=== PATIENT | female | born 1965 | race Caucasian/White ===

== ENCOUNTER 2020-07-17 10:25 | Outpatient (REF) | payer MEDICARE, MEDICAID, SELFPAY ==
[2020-07-17 13:25] LABS: Alanine Aminotransferase 13 U/L (0-31); Albumin Level 3.9 g/dL (3.5-5.0); Alkaline Phosphatase 121 U/L (39-117); Anion Gap 12 (12-20); Aspartate Amino Transferase 14 U/L (5-31); Bilirubin Direct 0.2 mg/dL (0.0-0.5); Bilirubin Total 0.2 mg/dL (0.0-1.0); Blood Urea Nitrogen 9 mg/dL (9-16); Calcium 8.8 mg/dL (8.4-10.2); Carbon Dioxide 31 mmol/L (22-29); Chloride 96 mmol/L (96-108); Cholesterol 125 mg/dL; Estimated Glomerular Filt Rate > 60; Glucose Random 96 mg/dL (60-115); HDL Cholesterol 36 mg/dL; LDL Cholesterol Calculated 70 mg/dl; Potassium 4.8 mmol/l (3.3-5.1); Sodium 134 mmol/L (135-145); Total Protein 7.3 g/dL (6.5-8.0); Triglycerides 96 mg/dL
[2020-07-17 13:38] LABS: Hematocrit 42.5 % (37-47); Hemoglobin 13.9 g/dl (12.0-16.0); Mean Corpuscular HGB Conc 32.7 g/dl (31.0-35.0); Mean Corpuscular Hemoglobin 31.4 pg (27.0-33.0); Mean Corpuscular Volume 96.2 fL (80-98); Mean Platelet Volume 10.3 fL (9.4-12.3); Platelet Count 235 X10*3/uL (160-400); Red Blood Count 4.42 X10*6/uL (4.20-5.50); Red Cell Distribution Width 12.2 % (11.0-16.0); White Blood Count 6.7 X10*3/uL (4.8-10.8)
== END 2020-07-17 10:26 | disposition home or self-care (01) ==
LOC: HO.LAB 10:25
PROVIDERS: PCP Internal Medicine; Visit Provider Internal Medicine
DX: I10 Essential (primary) hypertension (principal)
CPT/HCPCS: 36415; 80048; 80061; 80076; 85027

== ENCOUNTER 2020-08-20 14:02 | Emergency (ER) | payer MEDICARE, MEDICAID, SELFPAY ==
[2020-08-20 15:35] VITALS: BP 143/90; PULSE 94; RESP 16; TEMP 36.7; O2SAT 96; BMI 31.1
--- NOTE | 2020-08-20 16:21 | XR_ITS ---
EXAMINATION: XR ELBOW, RIGHT CLINICAL INFORMATION: Trauma. Fall. Elbow pain. COMPARISON: None TECHNIQUE: Two views of the right elbow. FINDINGS: There is osteopenia. There is no displaced fracture. No dislocation. There is no joint effusion. There is a 2 mm osseous density adjacent to the lateral humeral condyle that is chronic in appearance. XR/XR elbow RT 2V IMPRESSION: No acute abnormality of the elbow. If pain persists consider follow-up studies.
--- NOTE | 2020-08-20 16:22 | ED.EXTPRO ---
HPI - Extremity Problem General Chief complaint: Extremity Injury, Upper Stated complaint: elbow pain - fall Time Seen by Provider: 08/20/20 16:14 Source: patient Mode of arrival: ambulatory Limitations: no limitations History of Present Illness HPI Narrative: Patient comes to the emergency room complaining of right-sided elbow pain. Patient states that she slipped on eyes, landed on her right elbow. Patient denies pain anywhere else, did not hit her head, not on blood thinners. Patient denies numbness and tingling in the extremities, just localized pain in the elbow Related Data Home Medications Medication Instructions Recorded Confirmed aspirin 81 mg tablet,delayed 81 mg PO DAILY 07/23/20 08/02/20 release gabapentin 100 mg capsule mg PO 07/23/20 08/02/20 methadone 10 mg tablet 5 mg PO DAILY 07/23/20 08/02/20 Previous Rx's Medication Instructions Recorded atorvastatin 20 mg tablet 20 mg PO BEDTIME 90 Days #90 tab 06/04/20 citalopram 20 mg tablet 20 mg PO DAILY 90 Days #90 tab 06/04/20 lisinopril 10 mg tablet 10 mg PO DAILY 90 Days #90 tab 06/04/20 ropinirole 3 mg tablet 3 mg PO BEDTIME #90 tab 07/04/20 bisacodyl 5 mg tablet,delayed 10 mg PO ONCE 1 Days #2 tab 08/02/20 release polyethylene glycol 3350 17 17 g PO ONCE #238 g 08/02/20 gram/dose oral powder alprazolam 0.5 mg tablet 0.5 mg PO BID #60 tab 08/08/20 ibuprofen 600 mg PO TID PRN #14 tab 08/20/20 Allergies Allergy/AdvReac Type Severity Reaction Status Date / Time No Known Allergies Allergy Mild NOT Verified 08/20/20 15:37 APPLICABLE Review of Systems Review of Systems: Constitutional : No Weight loss, No Fever, No Chills, No Night Sweats, No Fatigue, No Malaise ENT/Mouth : No Hearing loss, No Ear Pain, No Nasal Congestion, No Sinus Pain, No Hoarseness, No sore throat, No Rhinorrhea, No Swallowing Difficulty Eyes: No Eye Pain, No Swelling, No Redness, No Foreign Body, No Discharge, No Vision Changes Cardiovascular : No Chest Pain, No SOB, No Dyspnea on Exertion, No Orthopnea, No Edema, No Palpitations Respiratory : No Cough, No Sputum, No Wheezing, No Smoke Exposure, No Dyspnea Gastrointestinal : No Nausea, No Vomiting, No Diarrhea, No Constipation, No abdominal Pain, No Hematochezia, No Melena Genitourinary : no irregular bleeding, No Dysuria, No Urinary Frequency, No Hematuria, No Urinary Incontinence, No Urgency, No Flank Pain, No Urinary Flow Changes, No Hesitancy Musculoskeletal : Complaining of right elbow pain, No Myalgias, No Joint Swelling Skin : No Skin Lesions, No rash Neuro : No Weakness, No Numbness, No Paresthesias, No Loss of Consciousness, No Dizziness, No Headache Psych : No Anxiety/Panic, No Depression, No SI/HI/AH/VH, No Social Issues, Heme/Lymph: No Bruising, No Bleeding,No Lymphadenopathy Endocrine : No Polyuria, No Polydipsia, No Temperature Intolerance [facility] Past Medical History Medical History Benign essential HTN CVA (cerebral vascular accident) Endogenous depression Positive colorectal cancer screening using Cologuard test Family History Family History (Updated 08/02/20 @ 13:16 by Jana Prescott MA) Father Alive and well Mother Alive and well Social History Social History (Updated 08/02/20 @ 13:16 by Jana Prescott MA) Alcohol intake: never Smoking Status: Current every day smoker Tobacco Type: Cigarette Cigarettes Per Day: 10 Advance Directives: No Advance Directives Information Provided: No Physical Exam Vital Signs: Vital Signs: Last Vital Signs Temp 98.0 F 08/20/20 15:35 Pulse 94 08/20/20 15:35 Resp 16 08/20/20 15:35 BP 143/90 H 08/20/20 15:35 Pulse Ox 96 08/20/20 15:35 Body Mass Index 31.1 Appearance: Alert. Oriented X3. No acute distress. Eyes: Pupils equal, round and reactive to light. ENT: Pharynx normal. Neck: Normal inspection. Neck supple. No lymph nodes noted. No crepitus CVS: Normal heart rate and rhythm. Pulses normal. Normal S1 and S2 Respiratory: No respiratory distress. Breath sounds normal. No Wheezing. No rales Abdomen: Soft and nontender. No rigidity. No distention. good BS x4 Skin: Skin warm and dry. Normal skin color. Normal skin turgor. Extremities: No obvious deformity, no effusion in elbow, no swelling,, patient able to abduct and move shoulder and wrist, patient is able to flex and extend the elbow but it hurts. Neuro: Oriented X 3. No motor deficit. No sensory deficit. Moving all extermities. No slurred speech. Course Course Course Narrative: I discussed the imaging with the patient, no acute fracture. MDM - Extremity (Nontraumatic) Imaging Data Elbow x-ray: Radiologist's impression: There is osteopenia. There is no displaced fracture. No dislocation. There is no joint effusion. There is a 2 mm osseous density adjacent to the lateral humeral condyle that is chronic in appearance. XR/XR elbow RT 2V IMPRESSION: No acute abnormality of the elbow. If pain persists consider follow-up studies. Discharge Plan Discharge Clinical Impression: Contusion of elbow, right Qualifiers: Encounter type: initial encounter Qualified Code(s): S50.01XA - Contusion of right elbow, initial encounter Patient Disposition: Home, Self-Care Instructions: Arthralgia (ED) Additional Instructions: Please follow-up with your primary care physician tomorrow. If you have any worsening or new symptoms, please return to the emergency room or call 911 Prescriptions: New ibuprofen 600 mg tablet 600 mg PO TID PRN (Reason: pain) Qty: 14 RF: 0 No Action citalopram 20 mg tablet 20 mg PO DAILY 90 Days Qty: 90 RF: 1 atorvastatin 20 mg tablet 20 mg PO BEDTIME 90 Days Qty: 90 RF: 1 lisinopril 10 mg tablet 10 mg PO DAILY 90 Days Qty: 90 RF: 1 ropinirole 3 mg tablet 3 mg PO BEDTIME Qty: 90 RF: 0 alprazolam 0.5 mg tablet 0.5 mg PO BID Qty: 60 RF: 0 gabapentin 100 mg capsule PO RF: 0 methadone 10 mg tablet 5 mg PO DAILY RF: 0 aspirin 81 mg tablet,delayed release (DR/EC) 81 mg PO DAILY RF: 0 bisacodyl [Dulcolax (bisacodyl)] 5 mg tablet,delayed release (DR/EC) 10 mg PO ONCE 1 Days Qty: 2 RF: 0 polyethylene glycol 3350 [Miralax] 17 gram/dose powder 17 g PO ONCE Qty: 238 RF: 0
[2020-08-20] MEDS: oxyCODONE HCl Immed Release 5 MG TABLET PO (16:38)
[2020-08-20 19:14] VITALS: BP 146/96; PULSE 84; RESP 20; TEMP 36.6; O2SAT 98
== END 2020-08-20 19:42 | disposition home or self-care (01) ==
PROVIDERS: Emergency Provider Emergency Medicine; PCP Internal Medicine
DX: S50.01XA Contusion of right elbow, initial encounter (principal); M25.521 Pain in right elbow; M85.821 Other specified disorders of bone density and structure, right upper arm; W01.0XXA Fall on same level from slipping, tripping and stumbling without subsequent striking against object, initial encounter; Y93.9 Activity, unspecified; Y92.9 Unspecified place or not applicable; Y99.9 Unspecified external cause status
CPT/HCPCS: 73070; 99283

== ENCOUNTER 2020-08-26 08:40 | Inpatient (IN) | payer MEDICARE, MEDICAID, SELFPAY ==
[2020-08-26] VITALS (12 sets, daily range): BP systolic 116–145; BP diastolic 61–88; PULSE 53–104; RESP 12–19; TEMP 36.9–37.1; O2SAT 94–99; BMI 30.2
--- NOTE | 2020-08-26 09:53 | ECG_ITS ---
Test Reason : SEIZURE Blood Pressure : / mmHG Vent. Rate : 078 BPM Atrial Rate : 078 BPM P-R Int : 142 ms QRS Dur : 078 ms QT Int : 416 ms P-R-T Axes : 053 -12 058 degrees QTc Int : 474 ms Normal sinus rhythm Low voltage QRS Nonspecific T wave abnormality Abnormal ECG When compared with ECG of 20-APR-2019 09:13, Nonspecific T wave abnormality, worse in Lateral leads Referred By: Marely Terrell Electronically Signed By:BERTIN SOOD
--- NOTE | 2020-08-26 09:53 | CT_ITS ---
EXAMINATION: CT HEAD WITHOUT CONTRAST CLINICAL INFORMATION: Possible seizure, altered mental status. History of stroke. COMPARISON: Noncontrast CT head 04/12/2019, MR brain 04/13/2019, CTA head and neck 04/14/2019 TECHNIQUE: Contiguous axial imaging was performed from the skull base to vertex without intravenous administration of contrast. This CT examination was performed using dose optimization techniques as appropriate, variously including the following: *Automated exposure control *Adjustment of mA and/or kV according to patient size (this includes techniques or standardized protocols for targeted exams where dose is matched to indication/reason for exam; i.e. extremities or head) *Use of iterative reconstruction technique DLP: 648 mGy-cm FINDINGS: There is no intracranial hemorrhage, hematoma, or extra-axial fluid collection. The ventricles are normal in size. There is no hydrocephalus, edema, or mass effect. There are old infarcts again seen left posterior frontal lobe, posterior left occipital lobe, and bilateral basal ganglia, greater on right. Basal ganglia calcifications and vascular calcifications again seen. There is no visible acute territorial infarct or mass lesion. The calvarium appears intact. There is no pneumocephalus or orbital emphysema. The visualized sinuses and middle ears and mastoid air cells show no significant mucosal thickening. There are no air-fluid levels. CT/CT head/brain wo con IMPRESSION: Chronic appearing infarcts. No acute intracranial abnormality.
--- NOTE | 2020-08-26 09:54 | XR_ITS ---
EXAMINATION: XR CHEST CLINICAL INFORMATION: Possible seizure. COMPARISON: Portable chest 04/12/2019, frontal chest 11/27/2014 TECHNIQUE: Portable upright AP view of the chest was obtained. FINDINGS: The lungs are clear. The vascularity is normal. There is no airspace consolidation or effusion. The costophrenic sulci are well-defined. The heart is within limits of normal size. The hilar and mediastinal contours are unremarkable. There are old healed fractures right ribs. XR/XR chest 1V IMPRESSION: Unremarkable examination.
--- NOTE | 2020-08-26 09:58 | ED_ITS ---
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 Patient postictal on scene per EMS. Per mother patient & her were drinking coffee this morning, she left to refill her cup it came back patient was slumped on floor, foaming at mouth, with witnessed tonic clonic activity. Mother also reports patient was incontinent. Mother reports 1 prior seizure in the past with her CVA. Denies anticoagulation. Of note patient was seen in the ED on 08/20 for fall, at this time patient does not remember this fall/events of fall. Patient denies symptoms at present, does not remember event. Denies headache, lightheadedness/dizziness, CP/SOB, abdominal pain, nausea/vomiting, ETOH/drug use Related Data Home Medications Medication Instructions Recorded Confirmed gabapentin 100 mg capsule 100 mg PO TID 07/23/20 08/26/20 aspirin [Aspir-81] 81 mg PO DAILY 08/26/20 08/26/20 atorvastatin 20 mg PO DAILY 08/26/20 08/26/20 methadone 10 mg PO DAILY 08/26/20 08/26/20 Previous Rx's Medication Instructions Recorded citalopram 20 mg tablet 20 mg PO DAILY 90 Days #90 tab 06/04/20 lisinopril 10 mg tablet 10 mg PO DAILY 90 Days #90 tab 06/04/20 ropinirole 3 mg tablet 3 mg PO BEDTIME #90 tab 07/04/20 alprazolam 0.5 mg tablet 0.5 mg PO BID #60 tab 08/08/20 Allergies Allergy/AdvReac Type Severity Reaction Status Date / Time No Known Allergies Allergy Mild NOT Verified 08/20/20 15:37 APPLICABLE Review of Systems Review of Systems: Constitutional: No Weight loss, No Fever, No Chills, No Fatigue, No Malaise ENT/Mouth: No sore throat, No Rhinorrhea Eyes: No Eye Pain, No Vision Changes Cardiovascular: No Chest Pain, No SOB, No Palpitations Respiratory: No Cough, No Sputum, No Wheezing, No Dyspnea Gastrointestinal: No Nausea, No Vomiting, No Diarrhea, No Constipation, No Abdominal pain Genitourinary: No irregular bleeding, No Dysuria, No Hematuria,+ Urinary Incontinence Musculoskeletal: No joint pain, No Myalgias, No Joint Swelling Skin: No Skin Lesions, No rash Neuro: No Weakness, No Numbness, No Paresthesias, +Loss of Consciousness, No Dizziness, No Headache, + witnessed seizure Yes all other systems are reviewed and are negative [facility] Past Medical History Attestation statement: The following information was validated with the patient. Medical History Benign essential HTN CVA (cerebral vascular accident) Endogenous depression Positive colorectal cancer screening using Cologuard test Family History Family History (Updated 08/02/20 @ 13:16 by Jana Prescott MA) Father Alive and well Mother Alive and well Social History Social History (Updated 08/02/20 @ 13:16 by Jana Prescott MA) Alcohol intake: never Smoking Status: Current every day smoker Tobacco Type: Cigarette Cigarettes Per Day: 10 Use of substances other than those prescribed or required for medical reasons: No Advance Directives: No Advance Directives Information Provided: No Physical Exam Vital Signs: Vital Signs: Last Vital Signs Temp 98.7 F 08/26/20 08:54 Pulse 90 08/26/20 10:54 Resp 19 08/26/20 10:40 BP 141/88 H 08/26/20 10:54 Pulse Ox 96 08/26/20 10:40 Body Mass Index 30.2 Const: General: cooperative and healthy appearing Orientation/consciousness: oriented to person and oriented to place L imitations: no limitations HENMT: Head: Yes normal to inspection Ears: hearing grossly normal bilaterally General nose exam: Normal external nose present Face and sinus: Yes normal facial exam Eyes: General: appearance normal, both eyes and all related structures Pupils: Equal, round and reactive pupils present EOM: EOMs intact bilaterally Neck: Neck: Yes normal visual inspection and Yes no meningeal signs Resp: Effort & Inspection: normal respiratory effort Auscultation: clear to auscultation bilaterally, no rales, no rhonchi and no wheezes Cardio: Rate: regular rate Heart sounds: S1 normal heart sound present and S2 normal heart sound present GI: Inspection: Yes normal to inspection Palpation (GI): Soft to palpation, nontender, no guarding and not rigid Skin: Other: Large area of ecchymosis noted to right arm from fall last week Rashes: no rashes Neuro: Other: RUE with decreased ROM chronically from prior CVA. Otherwise strength intact throughout General: oriented to person, oriented to place, tone normal, moves all extremities, no meningeal signs, no focal motor deficits and CN's II-XI intact bilaterally Cranial nerves: Yes Equal, round and reactive pupils present Gait exam (Neuro): Normal gait present Coordination: [id number] test normal (with LUE) and Romberg test negative Extrem: General: Yes normal to inspection Course Course Course Narrative: * Labs unremarkable, lactic 1.9 * Head CT with chronic appearing infarcts. No acute intracranial abnormality * CXR unremarkable * 1150--spoke to Neurology, Dr. Carbone recommended initiating patient on Keppra 500 b.i.d. 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 On exam VSS, NAD, A&O x2, no focal neuro deficits. Concern for CVA or ICH vs first time seizure or ?2nd seizure with unwitnessed fall last week as patient does not remember events vs metabolic/infectious etiology Plan: EKG, labs, CXR, head CT, reassess Lab Data Result diagrams: 08/26/20 10:51 08/26/20 10:51 Labs: Lab Results 08/26/20 08/26/20 08/26/20 Range/Units 10:51 10:51 10:51 WBC 6.8 (4.8-10.8) X10*3/uL RBC 3.71 L (4.20-5.50) X10*6/uL Hgb 11.8 L (12.0-16.0) g/dl Hct 35.7 L (37-47) % MCV 96.2 (80-98) fL MCH 31.8 (27.0-33.0) pg MCHC 33.1 (31.0-35.0) g/dl RDW 13.2 (11.0-16.0) % Plt Count 210 (160-400) X10*3/uL MPV 9.6 (9.4-12.3) fL Immature Gran % (Auto) 0.4 (0.0-0.4) % Neut % (Auto) 80.5 H (45-73) % Lymph % (Auto) 12.4 L (20-40) % [place] % (Auto) 6.0 (2-11) % Eos % (Auto) 0.4 (0-4) % Baso % (Auto) 0.3 (0-2) % Lymph # (Auto) 0.8 L (1.2-4.9) X10*3/uL [place] # (Auto) 0.4 (0.1-1.2) X10*3/uL Eos # (Auto) 0.0 (0.0-0.4) X10*3/uL Baso # (Auto) 0.0 (0.0-0.2) X10*3/uL Abs Immat Gran (auto) 0.03 (0.00-0.03) X10*3/uL Absolute Neuts (auto) 5.5 (2.0-8.3) X10*3/uL Absolute Nucleated RBC 0.000 (0.0-0.012) X10*3/uL Nucleated RBC % (auto) 0.0 (0.0-0.2) /100WBC PT (10.8-13.0) SEC INR (0.9-1.1) APTT (24.1-38.0) SEC Sodium 137 (135-145) mmol/L Potassium 3.8 D (3.3-5.1) mmol/l Chloride 100 (96-108) mmol/L Carbon Dioxide 30 H (22-29) mmol/L Anion Gap 11 L (12-20) BUN 6 L (9-16) mg/dL Creatinine 0.76 (0.5-1.4) mg/dL Estim Creat Clear Calc 80.1 Estimated GFR > 60 Random Glucose 159 H D (60-115) mg/dL Lactic Acid (0.5-2.0) mmol/L Calcium 8.6 (8.4-10.2) mg/dL Magnesium 1.9 (1.6-2.6) mg/dL Total Bilirubin 0.3 (0.0-1.0) mg/dL Direct Bilirubin 0.2 (0.0-0.5) mg/dL AST 11 (5-31) U/L ALT 8 (0-31) U/L Alkaline Phosphatase 128 H (39-117) U/L Troponin I High Sens < 3.5 (<3.5-17.0) ng/L B-Natriuretic Peptide 102 H (<100) pg/mL Total Protein 6.4 L (6.5-8.0) g/dL Albumin 3.6 (3.5-5.0) g/dL Lipase (8-78) U/L 08/26/20 08/26/20 08/26/20 Range/Units 10:51 10:51 10:51 WBC (4.8-10.8) X10*3/uL RBC (4.20-5.50) X10*6/uL Hgb (12.0-16.0) g/dl Hct (37-47) % MCV (80-98) fL MCH (27.0-33.0) pg MCHC (31.0-35.0) g/dl RDW (11.0-16.0) % Plt Count (160-400) X10*3/uL MPV (9.4-12.3) fL Immature Gran % (Auto) (0.0-0.4) % Neut % (Auto) (45-73) % Lymph % (Auto) (20-40) % [place] % (Auto) (2-11) % Eos % (Auto) (0-4) % Baso % (Auto) (0-2) % Lymph # (Auto) (1.2-4.9) X10*3/uL [place] # (Auto) (0.1-1.2) X10*3/uL Eos # (Auto) (0.0-0.4) X10*3/uL Baso # (Auto) (0.0-0.2) X10*3/uL Abs Immat Gran (auto) (0.00-0.03) X10*3/uL Absolute Neuts (auto) (2.0-8.3) X10*3/uL Absolute Nucleated RBC (0.0-0.012) X10*3/uL Nucleated RBC % (auto) (0.0-0.2) /100WBC PT 11.8 (10.8-13.0) SEC INR 1.0 (0.9-1.1) APTT 29.1 (24.1-38.0) SEC Sodium (135-145) mmol/L Potassium (3.3-5.1) mmol/l Chloride (96-108) mmol/L Carbon Dioxide (22-29) mmol/L Anion Gap (12-20) BUN (9-16) mg/dL Creatinine (0.5-1.4) mg/dL Estim Creat Clear Calc Estimated GFR Random Glucose (60-115) mg/dL Lactic Acid 1.9 (0.5-2.0) mmol/L Calcium (8.4-10.2) mg/dL Magnesium (1.6-2.6) mg/dL Total Bilirubin (0.0-1.0) mg/dL Direct Bilirubin (0.0-0.5) mg/dL AST (5-31) U/L ALT (0-31) U/L Alkaline Phosphatase (39-117) U/L Troponin I High Sens (<3.5-17.0) ng/L B-Natriuretic Peptide (<100) pg/mL Total Protein (6.5-8.0) g/dL Albumin (3.5-5.0) g/dL Lipase 25 (8-78) U/L Discharge Plan Discharge Clinical Impression: Seizure Patient Disposition: Admitted As Inpatient Prescriptions: No Action citalopram 20 mg tablet 20 mg PO DAILY 90 Days Qty: 90 RF: 1 lisinopril 10 mg tablet 10 mg PO DAILY 90 Days Qty: 90 RF: 1 ropinirole 3 mg tablet 3 mg PO BEDTIME Qty: 90 RF: 0 alprazolam 0.5 mg tablet 0.5 mg PO BID Qty: 60 RF: 0 methadone 10 mg/mL Concentrate 10 mg PO DAILY RF: 0 atorvastatin 20 mg tablet 20 mg PO DAILY RF: 0 aspirin [Aspir-81] 81 mg Tablet,Delayed Release (Dr/Ec) 81 mg PO DAILY RF: 0 gabapentin 100 mg capsule 100 mg PO TID RF: 0
[2020-08-26 10:59] LABS: Basophils Percent Auto 0.3 % (0-2); Eosinophils Percent Auto 0.4 % (0-4); Hematocrit 35.7 % (37-47); Hemoglobin 11.8 g/dl (12.0-16.0); Imm Gran Abs Auto 0.03 X10*3/uL (0.00-0.03); Imm Gran Pct Auto 0.4 % (0.0-0.4); Lymphocytes Absolute Auto 0.8 X10*3/uL (1.2-4.9); Lymphocytes Percent Auto 12.4 % (20-40); MANUAL DIFF FLAG NO; Mean Corpuscular HGB Conc 33.1 g/dl (31.0-35.0); Mean Corpuscular Hemoglobin 31.8 pg (27.0-33.0); Mean Corpuscular Volume 96.2 fL (80-98); Mean Platelet Volume 9.6 fL (9.4-12.3); Monocytes Absolute Auto 0.4 X10*3/uL (0.1-1.2); Neutrophils Absolute Auto 5.5 X10*3/uL (2.0-8.3); Neutrophils Percent Auto 80.5 % (45-73); Platelet Count 210 X10*3/uL (160-400); Red Blood Count 3.71 X10*6/uL (4.20-5.50); Red Cell Distribution Width 13.2 % (11.0-16.0); White Blood Count 6.8 X10*3/uL (4.8-10.8)
[2020-08-26 11:17] LABS: Prothrombin Time 11.8 SEC (10.8-13.0)
[2020-08-26 11:20] LABS: Partial Thromboplastin Time 29.1 SEC (24.1-38.0)
[2020-08-26 11:23] LABS: Lactic Acid 1.9 mmol/L (0.5-2.0)
[2020-08-26 11:30] LABS: Alanine Aminotransferase 8 U/L (0-31); Albumin Level 3.6 g/dL (3.5-5.0); Alkaline Phosphatase 128 U/L (39-117); Anion Gap 11 (12-20); Aspartate Amino Transferase 11 U/L (5-31); Bilirubin Direct 0.2 mg/dL (0.0-0.5); Bilirubin Total 0.3 mg/dL (0.0-1.0); Blood Urea Nitrogen 6 mg/dL (9-16); Calcium 8.6 mg/dL (8.4-10.2); Carbon Dioxide 30 mmol/L (22-29); Chloride 100 mmol/L (96-108); Creatinine Clr Calc Pharmacy 80.1; Estimated Glomerular Filt Rate > 60; Glucose Random 159 mg/dL (60-115); Lipase 25 U/L (8-78); Magnesium 1.9 mg/dL (1.6-2.6); Potassium 3.8 mmol/l (3.3-5.1); Sodium 137 mmol/L (135-145); Total Protein 6.4 g/dL (6.5-8.0)
[2020-08-26 11:33] LABS: B Type Natriuretic Peptide 102 pg/mL (<100); Troponin-I High Sensitivity < 3.5 ng/L (<3.5-17.0)
[2020-08-26 12:03] LABS: Acetaminophen LAB < 1 mcg/mL (<30); Salicylate < 5.0 mg/dL (15-30)
[2020-08-26] MEDS: levETIRAcetam 500 MG TABLET PO (12:08)
--- NOTE | 2020-08-26 13:58 | PM.IMHP ---
History of Present Illness Date of Service: 08/26/20 Chief Complaint: Seizure 54 year old women [facility] Medical History Benign essential HTN CVA (cerebral vascular accident) Endogenous depression Positive colorectal cancer screening using Cologuard test Family History (Updated 08/02/20 @ 13:16 by Jana Prescott MA) Father Alive and well Mother Alive and well Social History (Updated 08/02/20 @ 13:16 by Jana Prescott MA) Alcohol intake: never Smoking Status: Current every day smoker Tobacco Type: Cigarette Cigarettes Per Day: 10 Use of substances other than those prescribed or required for medical reasons: No Advance Directives: No Advance Directives Information Provided: No Meds Allergies Allergy/AdvReac Type Severity Reaction Status Date / Time No Known Allergies Allergy Mild NOT Verified 08/20/20 15:37 APPLICABLE Home Medications Medication Instructions Recorded Confirmed Type gabapentin 100 mg capsule 100 mg PO TID 07/23/20 08/26/20 History aspirin [Aspir-81] 81 mg PO DAILY 08/26/20 08/26/20 History atorvastatin 20 mg PO DAILY 08/26/20 08/26/20 History methadone 10 mg PO DAILY 08/26/20 08/26/20 History Physical Exam Vital Signs and Narrative: Vital Signs: Last Vital Signs Temp 98.7 F 08/26/20 08:54 Pulse 90 08/26/20 10:54 Resp 19 08/26/20 10:40 BP 141/88 H 08/26/20 10:54 Pulse Ox 96 08/26/20 10:40 Body Mass Index 30.2 Results Labs CBC and Chem 7: 08/26/20 10:51 08/26/20 10:51 Labs: Laboratory Results - last 24 hr 08/26/20 08/26/20 08/26/20 10:51 10:51 10:51 MCV 96.2 MCH 31.8 MCHC 33.1 RDW 13.2 Plt Count 210 MPV 9.6 Immature Gran % (Auto) 0.4 Neut % (Auto) 80.5 H Lymph % (Auto) 12.4 L [place] % (Auto) 6.0 Eos % (Auto) 0.4 Baso % (Auto) 0.3 Lymph # (Auto) 0.8 L [place] # (Auto) 0.4 Eos # (Auto) 0.0 Baso # (Auto) 0.0 Abs Immat Gran (auto) 0.03 Absolute Neuts (auto) 5.5 Absolute Nucleated RBC 0.000 Nucleated RBC % (auto) 0.0 PT INR APTT Anion Gap 11 L Estim Creat Clear Calc 80.1 Estimated GFR > 60 Random Glucose 159 H D Lactic Acid Calcium 8.6 Magnesium 1.9 Total Bilirubin 0.3 Direct Bilirubin 0.2 AST 11 ALT 8 Alkaline Phosphatase 128 H Troponin I High Sens < 3.5 B-Natriuretic Peptide 102 H Total Protein 6.4 L Albumin 3.6 Lipase Salicylates < 5.0 L Acetaminophen < 1 08/26/20 08/26/20 08/26/20 10:51 10:51 10:51 MCV MCH MCHC RDW Plt Count MPV Immature Gran % (Auto) Neut % (Auto) Lymph % (Auto) [place] % (Auto) Eos % (Auto) Baso % (Auto) Lymph # (Auto) [place] # (Auto) Eos # (Auto) Baso # (Auto) Abs Immat Gran (auto) Absolute Neuts (auto) Absolute Nucleated RBC Nucleated RBC % (auto) PT 11.8 INR 1.0 APTT 29.1 Anion Gap Estim Creat Clear Calc Estimated GFR Random Glucose Lactic Acid 1.9 Calcium Magnesium Total Bilirubin Direct Bilirubin AST ALT Alkaline Phosphatase Troponin I High Sens B-Natriuretic Peptide Total Protein Albumin Lipase 25 Salicylates Acetaminophen Imaging Radiologist's Impressions: Impressions Head CT 08/26/20 09:53 IMPRESSION: Chronic appearing infarcts. No acute intracranial abnormality. Chest X-Ray 08/26/20 09:54 IMPRESSION: Unremarkable examination.
--- NOTE | 2020-08-26 17:18 | PC.NURSE ---
THIS RN RETURNED PT'S MOTHER COCO ([phone]) CALL.
--- NOTE | 2020-08-26 17:32 | P.EN_ITS ---
Event Note Date of Service: 08/26/20 Event Note: Admission note Date of service the patient was seen and evaluated with Mimi Saba NP. I agree with her note, assessment and plan with the following. In summary, 54 years old lady with PMH of HTN, CVA w RUL weakness among others who presented to the hospital after having abnormal movements at home. History was reported by the mother as the patient does not recall what happened exactly and on thing she remembers waking up in the ambulance. The mother reported that the patient had tonic colonic activity associated with incontinence. The patient reported that when she woke up she was very confused and she lies she is in the ambulance. Suspected seizure Likely secondary to previous CVA, possible drug abuse CT head showing chronic infarcts, no acute findings Pending urine toxicology Started on Keppra 500 b.i.d. To do EEG in the morning Neurology consult Rest of evaluations by PUBLIC [employer] ATTENDANT note.
--- NOTE | 2020-08-26 17:38 | HP_ITS ---
DATE OF SERVICE: 08/26/2020 CHIEF COMPLAINT: Seizure activity. HISTORY OF PRESENT ILLNESS: A 54-year-old woman presenting to the ER after a witnessed seizure. Apparently, her mother witnessed the patient having tonic-clonic movements to her body and having incontinence. As per the medical record, the mother and the patient were sitting having coffee. The mother went to get up and get more coffee, and when she came back noted that the patient was slumped on the floor, foaming at the mouth with tonic-clonic movements of her extremities. According to the record, the patient may have had 1 prior seizure in the past after her stroke. The patient was also recently seen in the ER after a fall on August 20, but the patient does not remember the event. The patient is a little bit vague and does not remember anything that happened this morning. She reports that the most recent thing she remembers was waking up in the ambulance. She was even unable to say what she had for dinner last night, but reported eating her breakfast yesterday. She reported no history of seizure activity as far she knew. In the ER, her vital signs were stable. She was not noted to have any fever. She had a head CT and chest x-ray today. Her head CT revealed that she has a chronic appearing infarct. Chest x-ray is negative. The patient received 1 dose of Keppra while in the ER. She will be admitted for further management and treatment of acute seizure. PAST MEDICAL HISTORY: 1. Hypertension. 2. Depression. 3. Hyperlipidemia. 4. Chronic back pain. 5. Diabetes mellitus. 6. Stroke. 7. Obesity. 8. Restless legs syndrome. 9. History of substance abuse, on methadone use. 10. History of perianal abscess. SOCIAL HISTORY: Denies substance abuse for several years. Denies alcohol or tobacco use. FAMILY HISTORY: Sister had cardiac disease. ALLERGIES: NO KNOWN ALLERGIES. MEDICATIONS: 1. Alprazolam 0.5 mg p.o. b.i.d. 2. Aspirin 81 mg p.o. daily. 3. Atorvastatin 20 mg p.o. daily. 4. Citalopram 20 mg p.o. daily. 5. Gabapentin 100 mg p.o. t.i.d. 6. Lisinopril 10 mg p.o. daily. 7. Methadone 10 mg p.o. daily. 8. Ropinirole 3 mg p.o. at bedtime. REVIEW OF SYSTEMS: CONSTITUTIONAL: Denies any recent fever, chills, or decrease in appetite. RESPIRATORY: Denies any shortness of breath, cough, or sputum production. CARDIOVASCULAR: Denies any chest pain, orthopnea, PND, or edema. GASTROINTESTINAL: Denies any dysphagia, abdominal pain, nausea, vomiting, or diarrhea. GENITOURINARY: Denies any dysuria, frequency, hematuria. MUSCULOSKELETAL: Denies joint pain or swelling. NEUROPSYCH: Denies any weakness. All other systems are reviewed and are negative. PHYSICAL EXAMINATION: CONSTITUTIONAL: Resting in bed. No acute distress. VITAL SIGNS: 98.7, 57, 18, 126/72, 94% on room air. SKIN: Intact without rashes or open sores. HEENT: Head is normocephalic, atraumatic. Eyes, pupils are PERRLA. Sclerae anicteric. Mouth and throat: Mucous membranes are intact and moist. NECK: Supple. No lymphadenopathy. No JVD noted. CHEST: Clear to auscultation without wheezes, rhonchi, or rales. HEART: Regular rate and rhythm. Clear S1, S2. No murmurs, rubs, gallops. ABDOMEN: Positive bowel sounds. Abdomen is soft, nontender. No hepatomegaly or splenomegaly noted. NEURO: The patient is alert and oriented x3. Right arm is basically flaccid from previous stroke. LABORATORY DATA: WBC 6.8, hemoglobin 11.8, hematocrit 35.7, platelets 210. Sodium is 137, potassium is 3.8, chloride is 100, BUN is 6, creatinine 0.76, glucose is 159. ASSESSMENT AND PLAN: A 54-year-old woman, who appears to have had an acute seizure. In the record, it states the patient may have had a seizure some years ago after her stroke. 1. Acute seizure. Not on antiepileptics. Did receive a dose of Keppra in the ER. We will have Neurology follow. Seizure precautions. We will check a tox screen to rule out any recent drug use as well as urinalysis for any infectious source may be related to previous stroke. EEG. 2. Hypertension. Continue lisinopril. 3. Anxiety/depression. Continue citalopram, alprazolam. 4. Hyperlipidemia. Continue aspirin and statin. 5. History of substance abuse. Continue methadone with verification. 6. Restless legs syndrome. Continue gabapentin and ropinirole. 7. Deep vein thrombosis prophylaxis with Lovenox. 8. Case discussed with Dr. Sotelo. 9. Full code. ANABEL Lenz MD JR/LUIS / [id number] MTDD
[2020-08-26 18:28] LABS: COVID-19 Test Negative (Negative)
--- NOTE | 2020-08-26 19:19 | PC.NURSE ---
pt is aox3 no distress, skin pink warm and dry. pt answeres questions approp.
--- NOTE | 2020-08-26 23:31 | PC.NURSE ---
pt states she is unable to void at this time.
[2020-08-27] VITALS (7 sets, daily range): BP systolic 99–127; BP diastolic 56–77; PULSE 55–80; RESP 18–19; TEMP 35.8–37.1; O2SAT 93–97; BMI 30.2
--- NOTE | 2020-08-27 | US_ITS ---
EXAMINATION: US EXTRACRANIAL CAROTID DUPLEX, BILATERAL CLINICAL INFORMATION: History of stroke. Acute onset seizure. Rule out stenosis. COMPARISON: None TECHNIQUE: Real-time ultrasound and Doppler techniques (integrating B-mode 2-D vascular images, Doppler spectral analysis and color-flow Doppler imaging) were utilized to interrogate the extracranial carotid arteries, the vertebral arteries and proximal subclavian arteries bilaterally. The degree of stenosis is determined by criteria similar to NASCET. FINDINGS: Right Side: 1. There is mild atherosclerotic plaque seen in the bifurcation/proximal ICA region. 2. The common carotid artery PSV proximally is 107 cm/s and distally 67 cm/s. 3. The proximal internal carotid artery velocities are 76 cm/s systolic and 11 cm/s diastolic. 4. The proximal external carotid artery PSV is 88 cm/s. 5. The vertebral artery shows antegrade flow. 6. The subclavian artery waveforms are unremarkable. Left Side: 1. There is mild atherosclerotic plaque seen in the bifurcation/proximal ICA region. 2. The common carotid artery PSV proximally is 111 cm/s and distally 87 cm/s. 3. The proximal internal carotid artery velocities are 95 cm/s systolic and 19 cm/s diastolic. 4. The proximal external carotid artery PSV is 89 cm/s. 5. The vertebral artery shows antegrade flow. 6. The subclavian artery waveforms are unremarkable. US/US carotid duplex BI IMPRESSION: 1. RIGHT: Minimal, non-hemodynamically significant stenosis of the proximal right internal carotid artery corresponding to a 0-49% stenosis by velocity criteria. 2. LEFT: Minimal, non-hemodynamically significant stenosis of the proximal left internal carotid artery corresponding to a 0-49% stenosis by velocity criteria.
--- NOTE | 2020-08-27 01:45 | PC.NURSE ---
report given to vaughn lieberman. waiting for st cath and then pt is ready for transfer.
--- NOTE | 2020-08-27 02:15 | EEG_ITS ---
Waking background activity consists of 7 to 7.5 hertz posterior frequency occasionally getting up to 8 hertz, intermixed with low-voltage fast frequencies. Drowsiness is characterized by bifrontal slowing. A few instances of sharp transients are seen in isolated forms from the left temporal region. Photic stimulation is without activation. Hyperventilation was omitted. IMPRESSION: This EEG is considered mildly abnormal due to mild background slowing and rare sharp transients from the left temporal regions suggesting a focus of mild cerebral irritability in the left hemisphere. Clinical correlation is suggested. MD KADEEM Walker/LUIS / [id number]
--- NOTE | 2020-08-27 02:42 | PC.NURSE ---
PT TRANSPORTED TO THE UNIT VIA STRETCHER. PT IS ALERT AND ORIENTED X 3, RR IS REGULAR, IS SB IN THE 50'S ON THE ON THE MONITOR. PT WAS ABLE TO SLIDE HERSELF FROM THE STRETCHER TO THE BED. SEIZURE PRECAUTIONS ARE IN PLACE, SIDE RAILS ARE PADDED. VSS. HIGH FALL RISK PROTOCOL IN PLACE. CALL [facility] PROVIDED, SAFETY EXPLAINED. PT HAS RIGHT SIDED WEAKNESS DUE TO PAST STROKE.
[2020-08-27] MEDS: Gabapentin 100 MG CAPSULE PO ×4 (03:44→20:21)
[2020-08-27] MEDS: ALPRAZolam 0.5 MG TABLET PO ×3 (03:44→20:21)
[2020-08-27] MEDS: rOPINIRole HCL 1 MG TABLET 3 MG PO ×2 (03:44→20:21)
[2020-08-27] MEDS: 0.9 % Sodium Chloride Flush 3 ML SYRINGE IVFLUSH ×4 (03:44→23:57)
[2020-08-27 06:37] LABS: MANUAL DIFF FLAG NO
[2020-08-27 06:52] LABS: Basophils Percent Auto 0.2 % (0-2); Eosinophils Absolute Auto 0.1 X10*3/uL (0.0-0.4); Eosinophils Percent Auto 1.3 % (0-4); Hematocrit 34.7 % (37-47); Imm Gran Abs Auto 0.02 X10*3/uL (0.00-0.03); Imm Gran Pct Auto 0.4 % (0.0-0.4); Lymphocytes Absolute Auto 1.6 X10*3/uL (1.2-4.9); Lymphocytes Percent Auto 30.1 % (20-40); Mean Corpuscular HGB Conc 31.7 g/dl (31.0-35.0); Mean Corpuscular Volume 97.7 fL (80-98); Mean Platelet Volume 9.9 fL (9.4-12.3); Monocytes Absolute Auto 0.4 X10*3/uL (0.1-1.2); Monocytes Percent Auto 7.9 % (2-11); Neutrophils Absolute Auto 3.2 X10*3/uL (2.0-8.3); Neutrophils Percent Auto 60.1 % (45-73); Platelet Count 211 X10*3/uL (160-400); Red Blood Count 3.55 X10*6/uL (4.20-5.50); Red Cell Distribution Width 13.2 % (11.0-16.0); White Blood Count 5.3 X10*3/uL (4.8-10.8)
[2020-08-27 07:17] LABS: Anion Gap 12 (12-20); Blood Urea Nitrogen 11 mg/dL (9-16); Calcium 8.5 mg/dL (8.4-10.2); Carbon Dioxide 28 mmol/L (22-29); Chloride 102 mmol/L (96-108); Estimated Glomerular Filt Rate > 60; Glucose Random 103 mg/dL (60-115); Potassium 3.8 mmol/l (3.3-5.1); Sodium 138 mmol/L (135-145)
[2020-08-27] MEDS: Escitalopram Oxalate 10 MG TABLET PO (09:01)
[2020-08-27] MEDS: lisinopriL 10 MG TABLET PO (09:01)
[2020-08-27] MEDS: Aspirin Enteric Coated 81 MG TABLET.DR PO (09:01)
--- NOTE | 2020-08-27 11:31 | MHC.CM.PN ---
spoke with pts mother with whom she lives pt has no servceis and is not expected to require services when dcd her mother will transport [place] when dcd
--- NOTE | 2020-08-27 14:42 | HO.PM.IMPN ---
Subjective Subjective Date of Service: 08/27/20 Interval History: the patient was seen and evaluated this morning Laying in bed, feels comfortable Denies any fever, chills or shortness of breath No reported abnormal movement or altered mentation, seizures overnight No reported other overnight events. Systemic review: No fever, chills or weakness No chest pain, palpitation No shortness of breath or coughing No abdominal pain, nausea or vomiting No urinary symptoms No any rash or wounds Physical Exam Vital Signs: Vital Signs: Last Vital Signs Temp 97.2 F 08/27/20 12:00 Pulse 65 08/27/20 12:00 Resp 18 08/27/20 12:00 BP 123/71 08/27/20 12:00 Pulse Ox 95 08/27/20 12:00 Body Mass Index 30.2 Constitutional : Alert, oriented, not in distress Neck : Normal inspection, Supple Cardiovascular : RRR, S1 S2, no lower extremity edema Respiratory : Good bilateral air entry, no crackles, wheezes or rhonchi Gastrointestinal: soft, lax, Normal bowel sounds, Non tender Skin : Warm/Dry, No rash Neurological : Alert & oriented x3, right upper extremity weakness Objective Data Current Medications Generic Name Dose Route Start Last Admin Trade Name Freq PRN Reason Stop Dose Admin Acetaminophen 650 mg 08/27/20 02:15 Acetaminophen 325 Mg Tablet PO Q6H PRN Pain, Mild (Pain Scale 1-3) Alprazolam 0.5 mg 08/27/20 02:15 08/27/20 09:01 Alprazolam 0.5 Mg Tablet PO 0.5 mg BID MARIEL Administration Aspirin 81 mg 08/27/20 09:00 08/27/20 09:01 Aspirin Enteric Coated 81 Mg Tablet.Dr PO 81 mg DAILY MARIEL Administration Atorvastatin Calcium 20 mg 08/27/20 21:00 Atorvastatin Calcium 20 Mg Tablet PO BEDTIME MARIEL Escitalopram Oxalate 10 mg 08/27/20 09:00 08/27/20 09:01 Escitalopram Oxalate 10 Mg Tablet PO 10 mg DAILY MARIEL Administration Gabapentin 100 mg 08/27/20 02:15 08/27/20 14:00 Gabapentin 100 Mg Capsule PO 100 mg TID MARIEL Administration Lisinopril 10 mg 08/27/20 09:00 08/27/20 09:01 Lisinopril 10 Mg Tablet PO 10 mg DAILY MARIEL Administration Protocol Methadone HCl 110 mg 08/27/20 12:30 08/27/20 14:00 Methadone Hcl 1 Mg/0.1 Ml Oral.Conc PO 110 mg DAILY MARIEL Administration Ondansetron HCl 4 mg 08/27/20 02:15 Ondansetron Hcl 4 Mg/2 Ml Vial IVPUSH Q8H PRN Nausea and Vomiting Pharmacy Consult 1 each 08/26/20 09:57 Consult Rx Perform Med Rec MISCELLANE ONCE PRN Consult order Ropinirole HCl 3 mg 08/27/20 02:15 08/27/20 03:44 Ropinirole Hcl 1 Mg Tablet PO 3 mg BEDTIME MARIEL Administration Sodium Chloride 3 ml 08/27/20 02:15 08/27/20 14:00 0.9 % Sodium Chloride Flush 3 Ml Syringe IVFLUSH 3 ml QSHIFT MARIEL Administration Labs CBC & Chem 7: 08/27/20 06:22 08/27/20 06:22 Assessment and Plan (1) Seizure: Status: Acute (2) Benign essential HTN: Status: Acute (3) Endogenous depression: Status: Acute (4) Drug abuse: Status: Acute (5) New onset seizure: Status: Acute Assessment and Plan: 54-year-old woman, who appears to have had an acute seizure. In the record, it states the patient may have had a seizure some years ago after her stroke. New onset seizure Presented with reported tonic clonic abnormal movement Given history of previous stroke, possible opiate withdrawal Pending EEG Continue Keppra 500 b.i.d. In pending neurology evaluation Opioid abuse Patient denies Tox screen positive for opiates, methadone should not give a positive test result Continue methadone Hypertension Continue lisinopril. Anxiety/depression Continue citalopram, alprazolam. Hyperlipidemia Continue aspirin and statin. Restless legs syndrome Continue gabapentin and ropinirole. DVT PPX Lovenox.
--- NOTE | 2020-08-27 15:17 | PM.NEUROCN ---
History of Present Illness Data of Consult Service Date: 08/27/20 Primary Care Provider: Adalberto Man MD HPI Reason for consult: New-onset of generalized seizure This is a 54-year-old woman with a history of for previous drug abuse currently on methadone maintenance was had strokes in the past with residual right upper extremity weakness from a left posterior frontal and left occipital stroke a few years ago. She also has bilateral basal ganglia strokes. She may have had one seizure when she presented with a stroke couple of years ago but has no recall of it. She presented today when she had a generalized tonic-clonic convulsion foaming at the mouth and incontinence followed by a postictal state for about 15 min. with this by her mother. The patient has no recall of this. She now feels back to her baseline. She was also seen in the emergency room earlier in July after an unexplained falls. She has been given Keppra 1 dose. CAT scan is is as reported above with no acute findings. Review of Systems Eyes: Eyes: Reports no additional eye complaints ENT: Reports system reviewed and no additional complaints, except as documented and Reports Normal hearing present Cardiovascular: Cardiovascular: Reports no additional cardiovascular complaints Respiratory: Respiratory: Reports no additional respiratory complaints Gastrointestinal: Gastrointestinal: Reports no additional gastrointestinal complaints Musculoskeletal: Musculoskeletal: Reports no additional musculoskeletal complaints Integumentary/Breasts: Skin/Breast: Reports system reviewed and no additional complaints, except as docu Neurologic: Reports as per HPI and Reports Normal hearing present Psychiatric: Psychiatric: Reports as per HPI Endocrine: Endocrine: Reports no additional endocrine complaints Hematologic/Lymphatic: Hematologic/Lymphatic: Reports no additional hematologic/lymphatic complaints Allergic/Immunologic: Allergic/Immunologic: Reports no additional allergic/immunologic complaints [facility] Past Medical History Medical History Benign essential HTN CVA (cerebral vascular accident) Endogenous depression Positive colorectal cancer screening using Cologuard test Family History Family History (Updated 08/02/20 @ 13:16 by Jana Prescott MA) Father Alive and well Mother Alive and well Social History Social History (Updated 08/02/20 @ 13:16 by Jana Prescott MA) Household Members: Other Housing: House Do you presently have visiting nurse or other home services: No Alcohol intake: never Smoking Status: Current every day smoker Tobacco Type: Cigarette Cigarettes Per Day: 10 Smoked in Last 30 Days: Yes Patient Interested in Nicotine Replacement: No Patient Given Instructions on How to Stop Smoking: No Second Hand Smoke Exposure: Yes Use of substances other than those prescribed or required for medical reasons: No Currently Displaying Signs/Symptoms of Drug Intoxication Withdrawal: No Any prior treatment program specific to substance use: No Have you been hit, kicked, punched, or otherwise hurt by someone within the past year? If so, by whom?: No Do you feel safe in your current relationship?: No Current Relationship Is there a partner from a previous relationship who is making you feel unsafe now?: No Are you made to feel afraid or neglected: No Advance Directives: No Advance Directives Information Provided: No Do you have thoughts of harming others: None Do you have a plan to hurt others: No Plan Recently lost weight without trying: No service: No Meds Allergies Allergy/AdvReac Type Severity Reaction Status Date / Time No Known Allergies Allergy Mild NOT Verified 08/20/20 15:37 APPLICABLE Home Medications Medication Instructions Recorded Confirmed Type gabapentin 100 mg capsule 100 mg PO TID 07/23/20 08/26/20 History aspirin [Aspir-81] 81 mg PO DAILY 08/26/20 08/26/20 History atorvastatin 20 mg PO DAILY 08/26/20 08/26/20 History methadone 110 mg PO DAILY 08/26/20 08/27/20 History Physical Exam Vital Signs: Vital Signs: Last Vital Signs Temp 97.2 F 08/27/20 12:00 Pulse 65 08/27/20 12:00 Resp 18 08/27/20 12:00 BP 123/71 08/27/20 12:00 Pulse Ox 95 08/27/20 12:00 Body Mass Index 30.2 Const: General: cooperative, comfortable, no acute distress, well developed, alert and awake Nutritional Appearance: well nourished Orientation/consciousness: oriented to person, oriented to place and oriented to time Limitations: no limitations HENMT: Head: Yes normal to inspection, Yes normocephalic and Yes atraumatic Ears: hearing grossly normal bilaterally General nose exam: Normal external nose present Face and sinus: Yes normal facial exam Mouth: Normal oral and palatal mucosa present Eyes: General: appearance normal, both eyes and all related structures Visual Erazo: normal visual erazo by confrontation Alignment and Position: alignment normal Periorbital: periorbital findings normal Eyelids: Yes eyelids normal Conjunctivae: conjunctivae normal Sclerae: sclerae normal Corneas: corneas normal Pupils: Equal, round and reactive pupils present and Pupil accommodation reflex normal EOM: EOMs intact bilaterally Direct Ophthalmoscopy: normal light reflex Neck: Neck: Yes normal visual inspection, Yes full ROM and Yes no meningeal signs Thyroid: Thyroid normal Carotids: normal carotid upstroke and bounding pulses Chest: Chest palpation & inspection: normal inspection of the chest Resp: Effort & Inspection: normal respiratory effort Auscultation: clear to auscultation bilaterally Cardio: Rate: regular rate Rhythm: regular rhythm Heart sounds: S1 normal heart sound present and S2 normal heart sound present Peripheral pulses: Peripheral pulses 2+ throughout GI: Inspection: Yes normal to inspection Percussion: Yes normal to percussion Auscultation: normal bowel sounds Rectal Exam - Female: deferred Back/Spine/Pelvis: Cervical Spine: normal cervical lordosis and cervical ROM normal Thoracic/Lumbar Spine: thoracic and lumbar spine normal to inspection Skin: General skin exam: no rashes or lesions noted Neuro: Other: Flaccid right upper extremity plegia with 0/5 strength. Right lower extremity 5 minus/5 with slight hyperreflexia. General: oriented to person, oriented to place, oriented to time, gait normal, tone normal, Normal light touch and pain sensation, no meningeal signs, no focal motor deficits, CN's II-XI intact bilaterally and normal sensation to monofilament Cranial nerves: Yes CN's II-XII intact bilaterally, Yes Equal, round and reactive pupils present, Yes Bilaterally intact EOM present, Yes Nystagmus not present, Yes Normal facial strength present, Yes Midline tongue present, Yes Normal gag reflex present, Yes Symmetric palate elevation present, Yes Normal hearing present and Yes Ability to bilaterally rotate head present Cognition (Neuro): normal cognition Speech: Other speech findings present (Neuro) Gait exam (Neuro): Normal gait present Motor exam (neuro): no tremor noted, no asterixis and Motor fasciculations not present Sensory Exam: Bilaterally intact graphesthesia Deep tendon reflexes (DTR's): Right triceps reflex intensity grade: 2+, Left triceps reflex intensity grade: 1+, Rt Biceps (C5, C6): 2+, Left biceps reflex intensity grade: 1+, Right brachioradialis reflex intensity grade: 2+, Left brachioradialis reflex intensity grade: 2+, Right patellar reflex intensity grade: 2+, Left patellar reflex intensity grade: 2+, Right ankle reflex intensity grade: 2+ and Left ankle reflex intensity grade: 2+ Plantar Reflex Responses: downgoing: right, left and bilateral Coordination: [id number] test normal, tandem gait normal and Romberg test negative Pupils: Normal pupillary reactivity/response: bilateral Extrem: General: Yes normal to inspection, Yes normal exam except as noted and Yes no pedal edema Psych: Appearance: grossly normal Mental Status: mental status grossly normal Speech and movement: Normal speech and movement present and Clear speech present Affect: normal affect Attitude: cooperative Thought process: Normal thought process present Results Labs CBC & Chem 7: 08/27/20 06:22 08/27/20 06:22 Labs: Short CBC 08/27/20 Range/Units 06:22 WBC 5.3 (4.8-10.8) X10*3/uL Hgb 11.0 L (12.0-16.0) g/dl Hct 34.7 L (37-47) % Plt Count 211 (160-400) X10*3/uL BMP 08/27/20 06:22 Sodium 138 Potassium 3.8 Chloride 102 Carbon Dioxide 28 BUN 11 D Creatinine 0.70 Calcium 8.5 Assessment and Plan (1) New onset seizure: Problem details: New-onset of seizure probably related to previous strokes. EEG was reviewed and shows mild generalized slowing and a few sharp transients from the left hemisphere Status: Acute Start Keppra 500 mg by mouth twice a day (2) Stroke (cerebrum): Status: Acute Review previous stroke workup to make sure that her carotids have been looked at with an ultrasound or CT a from the last admission.
[2020-08-27 18:48] LABS: Glucose Urine UA NEG (NEG); Leukocyte Esterase Urine NEG (NEG); Nitrite Urine NEG (NEG); PH 6.5 (5.0-8.0); Specific Gravity - Urine 1.025 (1.005-1.025); Urine Blood TRACE (NEG); Urine Ketones NEG (NEG); Urine Protein NEG (NEG-TRACE)
[2020-08-27 18:51] LABS: Appearance Urine CLEAR; Color Urine DARK YELLOW
[2020-08-27 18:55] LABS: WBC Urine 0-2 /HPF (0-4)
[2020-08-27 18:56] LABS: Squamous Epithelial Cell Urine 1+ /LPF
[2020-08-27 19:08] LABS: Amphetamine Screen Urine Not Detected (Not Detect); Barbiturates, Urine Not Detected (Not Detect); Benzodiazepines Screen Urine POSITIVE (Not Detect); Cannabinoid Screen Urine Not Detected (Not Detect); Cocaine Screen Urine Not Detected (Not Detect); Opiate Screen Urine POSITIVE (Not Detect); Phencyclidine Screen Urine Not Detected (Not Detect)
[2020-08-27] MEDS: Atorvastatin Calcium 20 MG TABLET PO (20:21)
[2020-08-28] VITALS: BP 105/62; PULSE 90; RESP 18; TEMP 37.3; O2SAT 93
[2020-08-28 04:00] VITALS: BP 100/60; PULSE 69; RESP 18; TEMP 36.2; O2SAT 93
[2020-08-28 07:17] VITALS: BP 106/60; PULSE 55; RESP 17; TEMP 36.2; O2SAT 95
[2020-08-28 08:05] VITALS: BP 106/60; PULSE 55
[2020-08-28] MEDS: Gabapentin 100 MG CAPSULE PO (08:05)
[2020-08-28] MEDS: ALPRAZolam 0.5 MG TABLET PO (08:05)
[2020-08-28] MEDS: 0.9 % Sodium Chloride Flush 3 ML SYRINGE IVFLUSH (08:05)
[2020-08-28] MEDS: Aspirin Enteric Coated 81 MG TABLET.DR PO (08:05)
[2020-08-28] MEDS: Escitalopram Oxalate 10 MG TABLET PO (08:05)
[2020-08-28] MEDS: levETIRAcetam 500 MG TABLET PO (10:45)
--- NOTE | 2020-08-28 10:56 | MHC.CM.PN ---
pt dcd home no skilled servceis ordered by
--- NOTE | 2020-08-28 11:43 | PM.DS ---
DS: Providers Provider Date of admission: 08/26/20 19:15 Primary care physician: Adalberto Man MD Consults: 08/27/20 02:15 Consult to Neurology Routine Consulting Provider: [facility] Reason for consultation: seizure Has provider been notified: No DS: Diagnosis Discharge Diagnosis (1) New onset seizure: Status: Acute (2) Stroke (cerebrum): Status: Acute DS: Medications Discharge Medications Home Medications: Home Medications Medication Instructions Recorded Confirmed gabapentin 100 mg capsule 100 mg PO TID 07/23/20 08/26/20 aspirin 81 mg PO DAILY 08/26/20 08/26/20 atorvastatin 20 mg PO DAILY 08/26/20 08/26/20 methadone 110 mg PO DAILY 08/26/20 08/27/20 Previous Rx's Medication Instructions Recorded citalopram 20 mg tablet 20 mg PO DAILY 90 Days #90 tab 06/04/20 lisinopril 10 mg tablet 10 mg PO DAILY 90 Days #90 tab 06/04/20 ropinirole 3 mg tablet 3 mg PO BEDTIME #90 tab 07/04/20 alprazolam 0.5 mg tablet 0.5 mg PO BID #60 tab 08/08/20 levetiracetam [Keppra] 500 mg PO BID #60 tab 08/28/20 DS: Summary Hospital Course Hospital Course: Admission note HPI A 54-year-old woman presenting to the ER after a witnessed seizure., her mother witnessed the patient having tonic-clonic movements to her body and having incontinence. As per the medical record, the mother and the patient were sitting having coffee. The mother went to get up and get more coffee, and when she came back noted that the patient was slumped on the floor, foaming at the mouth with tonic-clonic movements of her xtremities. According to the record, the patient may have had 1 prior seizure in the past after her stroke. The patient was also recently seen in the ER after a fall on August 20, but the patient does not remember the event. The patient is a little bit vague and does not remember anything that happened this morning. She reports that the most recent thing she remembers was waking up in the ambulance. She was even unable to say what she had for dinner last night, but reported eating her breakfast yesterday. She reported no history of seizure activity as far she knew. In the ER, her vital signs were stable. She was not noted to have any fever. She had a head CT and chest x-ray today. Her head CT revealed that she has a chronic appearing infarct. Chest x-ray is negative. The patient received 1 dose of Keppra while in the ER. She will be admitted for further management and treatment of acute seizure. Hospital course The patient was admitted to the hospital for evaluation of altered mentation and abnormal movements. A CT scan of the head was negative for any acute findings but consistent with chronic history of strokes. She was started on Keppra 500 b.i.d. as neurology evaluated the patient after reviewing EEG which showed abnormal reading suggestive of seizure activity. The patient was observed during the hospital stay with no reported abnormal movement or altered mentation. Her tox screen was positive for opiates. She was advised not to use any narcotics as withdrawal might increase the risk of having seizures. To be discharged home on Keppra had to follow-up with Dr. Landon from Neurology as outpatient. Time Spent with Patient Time attestation: Total time spent providing and/or coordinating discharge services: Physical Exam Vital Signs: Vital Signs: Last Vital Signs Temp 97.1 F 08/28/20 07:17 Pulse 55 08/28/20 08:05 Resp 17 08/28/20 07:17 BP 106/60 08/28/20 08:05 Pulse Ox 95 08/28/20 07:17 Body Mass Index 30.2 Constitutional : Alert, oriented, not in distress Neck : Normal inspection, Supple Cardiovascular : RRR, S1 S2, no lower extremity edema Respiratory : Good bilateral air entry, no crackles, wheezes or rhonchi Gastrointestinal: soft, lax, Normal bowel sounds, Non tender Skin : Warm/Dry, No rash Neurological : Alert & oriented x3, No focal deficit DS: Data Data Completed and Pending Labs on day of discharge: 08/26/20 09:53 ECG 12 lead EKG Stat EKG Documentation DIRECTED CT head/brain wo con Stat 08/26/20 09:54 XR chest 1V Stat 08/26/20 10:51 Acetaminophen LAB Stat B Type Natriuretic Peptide Stat Basic Metabolic Panel Stat Complete Blood Count Auto Diff Stat Lactic Acid Stat Lipase Stat Liver Panel Stat Magnesium Stat Partial Thromboplastin Time Stat Prothrombin Time INR Stat Salicylate Stat Troponin-I High Sensitivity Stat 08/26/20 11:49 levETIRAcetam [Keppra] 500 mg PO ONCE ONE 08/26/20 11:51 Add Laboratory Test Stat 08/26/20 18:01 COVID-19 ID NOW ([place]) Stat 08/26/20 19:15 Transfer Order Routine 08/27/20 US carotid duplex BI Routine 08/27/20 02:15 EEG electroencephalogram Routine 08/27/20 06:22 Basic Metabolic Panel DAILY@0600 Complete Blood Count Auto Diff DAILY@0600 08/27/20 18:32 Drug Screen Urine Stat Laboratory Last Values WBC 5.3 X10*3/uL (4.8-10.8) 08/27/20 06:22 RBC 3.55 X10*6/uL (4.20-5.50) L 08/27/20 06:22 Hgb 11.0 g/dl (12.0-16.0) L 08/27/20 06:22 Hct 34.7 % (37-47) L 08/27/20 06:22 MCV 97.7 fL (80-98) 08/27/20 06:22 MCH 31.0 pg (27.0-33.0) 08/27/20 06:22 MCHC 31.7 g/dl (31.0-35.0) 08/27/20 06:22 RDW 13.2 % (11.0-16.0) 08/27/20 06:22 Plt Count 211 X10*3/uL (160-400) 08/27/20 06:22 MPV 9.9 fL (9.4-12.3) 08/27/20 06:22 Immature Gran % (Auto) 0.4 % (0.0-0.4) 08/27/20 06:22 Neut % (Auto) 60.1 % (45-73) 08/27/20 06:22 Lymph % (Auto) 30.1 % (20-40) 08/27/20 06:22 [place] % (Auto) 7.9 % (2-11) 08/27/20 06:22 Eos % (Auto) 1.3 % (0-4) 08/27/20 06:22 Baso % (Auto) 0.2 % (0-2) 08/27/20 06:22 Lymph # (Auto) 1.6 X10*3/uL (1.2-4.9) 08/27/20 06:22 [place] # (Auto) 0.4 X10*3/uL (0.1-1.2) 08/27/20 06:22 Eos # (Auto) 0.1 X10*3/uL (0.0-0.4) 08/27/20 06:22 Baso # (Auto) 0.0 X10*3/uL (0.0-0.2) 08/27/20 06:22 Abs Immat Gran (auto) 0.02 X10*3/uL (0.00-0.03) 08/27/20 06:22 Absolute Neuts (auto) 3.2 X10*3/uL (2.0-8.3) 08/27/20 06:22 Absolute Nucleated RBC 0.000 X10*3/uL (0.0-0.012) 08/27/20 06:22 Nucleated RBC % (auto) 0.0 /100WBC (0.0-0.2) 08/27/20 06:22 PT 11.8 SEC (10.8-13.0) 08/26/20 10:51 INR 1.0 (0.9-1.1) 08/26/20 10:51 APTT 29.1 SEC (24.1-38.0) 08/26/20 10:51 Sodium 138 mmol/L (135-145) 08/27/20 06:22 Potassium 3.8 mmol/l (3.3-5.1) 08/27/20 06:22 Chloride 102 mmol/L (96-108) 08/27/20 06:22 Carbon Dioxide 28 mmol/L (22-29) 08/27/20 06:22 Anion Gap 12 (12-20) 08/27/20 06:22 BUN 11 mg/dL (9-16) D 08/27/20 06:22 Creatinine 0.70 mg/dL (0.5-1.4) 08/27/20 06:22 Estim Creat Clear Calc 87.0 08/27/20 06:22 Estimated GFR > 60 08/27/20 06:22 Random Glucose 103 mg/dL (60-115) D 08/27/20 06:22 Lactic Acid 1.9 mmol/L (0.5-2.0) 08/26/20 10:51 Calcium 8.5 mg/dL (8.4-10.2) 08/27/20 06:22 Magnesium 1.9 mg/dL (1.6-2.6) 08/26/20 10:51 Total Bilirubin 0.3 mg/dL (0.0-1.0) 08/26/20 10:51 Direct Bilirubin 0.2 mg/dL (0.0-0.5) 08/26/20 10:51 AST 11 U/L (5-31) 08/26/20 10:51 ALT 8 U/L (0-31) 08/26/20 10:51 Alkaline Phosphatase 128 U/L (39-117) H 08/26/20 10:51 Troponin I High Sens < 3.5 ng/L (<3.5-17.0) 08/26/20 10:51 B-Natriuretic Peptide 102 pg/mL (<100) H 08/26/20 10:51 Total Protein 6.4 g/dL (6.5-8.0) L 08/26/20 10:51 Albumin 3.6 g/dL (3.5-5.0) 08/26/20 10:51 Lipase 25 U/L (8-78) 08/26/20 10:51 Urine Color DARK YELLOW 08/27/20 18:32 Urine Appearance CLEAR 08/27/20 18:32 Urine pH 6.5 (5.0-8.0) 08/27/20 18:32 Ur Specific [place] 1.025 (1.005-1.025) 08/27/20 18:32 Urine Protein NEG MG/DL (NEG-TRACE) 08/27/20 18:32 Urine Glucose (UA) NEG MG/DL (NEG) 08/27/20 18:32 Urine Ketones NEG MG/DL (NEG) 08/27/20 18:32 Urine Blood TRACE (NEG) 08/27/20 18:32 Urine Nitrite NEG (NEG) 08/27/20 18:32 Ur Leukocyte Esterase NEG (NEG) 08/27/20 18:32 Urine RBC 5-9 /HPF (0) H 08/27/20 18:32 Urine WBC 0-2 /HPF (0-4) 08/27/20 18:32 Ur Squamous Epith Cells 1+ /LPF 08/27/20 18:32 Urine Bacteria NONE /LPF 08/27/20 18:32 Salicylates < 5.0 mg/dL (15-30) L 08/26/20 10:51 Urine Opiates Screen POSITIVE (Not Detect) H 08/27/20 18:32 Acetaminophen < 1 mcg/mL (<30) 08/26/20 10:51 Ur Barbiturates Screen Not Detected (Not Detect) 08/27/20 18:32 Ur Phencyclidine Scrn Not Detected (Not Detect) 08/27/20 18:32 Ur Amphetamines Screen Not Detected (Not Detect) 08/27/20 18:32 U Benzodiazepines Scrn POSITIVE (Not Detect) H 08/27/20 18:32 Urine Cocaine Screen Not Detected (Not Detect) 08/27/20 18:32 U Marijuana (THC) Screen Not Detected (Not Detect) 08/27/20 18:32 COVID-19 (LANNY) Negative (Negative) 08/26/20 18:01 COVID-19 Clin Com See Note 08/26/20 18:01 Discharge Plan Discharge Patient Disposition: Home, Self-Care Referrals: Adalberto Man MD [Primary Care Provider] - Discharge Medications: New levetiracetam [Keppra] 500 mg tablet 500 mg PO BID Qty: 60 RF: 0 Continued citalopram 20 mg tablet 20 mg PO DAILY 90 Days Qty: 90 RF: 1 lisinopril 10 mg tablet 10 mg PO DAILY 90 Days Qty: 90 RF: 1 ropinirole 3 mg tablet 3 mg PO BEDTIME Qty: 90 RF: 0 alprazolam 0.5 mg tablet 0.5 mg PO BID Qty: 60 RF: 0 methadone 10 mg/mL Concentrate 110 mg PO DAILY RF: 0 atorvastatin 20 mg tablet 20 mg PO DAILY RF: 0 aspirin 81 mg Tablet,Delayed Release (Dr/Ec) 81 mg PO DAILY RF: 0 gabapentin 100 mg capsule 100 mg PO TID RF: 0 Discharge Orders: Discharge Order (Routine); Ordered 08/28/20 Ordered By: Rangel Sotelo Diet: advance to usual diet Activity on Discharge: As tolerated Visit Report Forms: Patient Portal Discharge page Care Plan Goals: Read below Health Concerns: Read below Plan of Treatment: You were admitted to the hospital for evaluation of altered mentation and abnormal body shakes. Images for your brain did not show any acute findings. Your treated primarily for seizure. Evaluated by neurologist who recommended continue treatment for seizures. An ultrasound for your carotid arteries showed no obstruction or narrowing. Start Keppra 500 mg twice Daily To follow-up with Dr. Landon from Neurology as outpatient in a month or so.
== END 2020-08-28 12:19 | disposition home or self-care (01) | DRG 57 ==
LOC: HO.ED 11:53 → HO.IMC 08-27 01:05
PROVIDERS: Nurse Practitioner Acute Care; Physician Assistant; Admitting Provider Student in an Organized Health Care Education/Training Program; Emergency Provider Student in an Organized Health Care Education/Training Program; PCP Internal Medicine; Visit Provider Student in an Organized Health Care Education/Training Program
DX: I69.398 Other sequelae of cerebral infarction (principal); R56.9 Unspecified convulsions; F11.20 Opioid dependence, uncomplicated; I69.331 Monoplegia of upper limb following cerebral infarction affecting right dominant side; F41.9 Anxiety disorder, unspecified; E78.5 Hyperlipidemia, unspecified; G25.81 Restless legs syndrome; F32.9 Major depressive disorder, single episode, unspecified; Z20.828 Contact with and (suspected) exposure to other viral communicable diseases; Z79.82 Long term (current) use of aspirin; Z79.899 Other long term (current) drug therapy
CPT/HCPCS: 36415; 70450; 71045; 80048; 80076; 80307; 81001; 83605; 83690; 83735; 83880; 84484; 85025; 85610; 85730; 87635; 93005; 93880; 95816; 99285; G0480

== ENCOUNTER 2020-10-10 09:58 | Day surgery (SDC) | payer MEDICARE, MEDICAID, SELFPAY ==
[2020-10-07 10:37] VITALS: BMI 31.1
--- NOTE | 2020-10-09 09:52 | P.CONAN_ITS ---
Documented by User: Catarina Hernandes 10/09/20 10:04 HPI - Anesthesia Eval Consult details Narrative: 54yo F for Colonoscopy H/O IVDA - methadone PMFSH Active Problems Active Problems: All Active Problems (Updated 10/07/20 @ 10:41 by Sharlene Shore) Screening for colon cancer (Acute) Past Medical History Medical History Benign essential HTN CVA (cerebral vascular accident) Drug abuse Elevated cholesterol Endogenous depression Hx of ectopic Lab test negative for COVID-19 virus Positive colorectal cancer screening using Cologuard test Seizure Family History Family History Father Alive and well Mother Alive and well Surgical History Surgical History History of back surgery Hx of unilateral oophorectomy Social History Social History Household Members: Other Housing: House Alcohol intake: never Smoking Status: Current every day smoker Tobacco Type: Cigarette Cigarettes Per Day: 15 Years Smoked: 30 Smoked in Last 30 Days: Yes Patient Interested in Nicotine Replacement: No Second Hand Smoke Exposure: Yes Use of substances other than those prescribed or required for medical reasons: No Substance Use Type: Former Substance User and Heroin Substance Use Type Other:: currently taking methadone Advance Directives Information Provided: No Recently lost weight without trying: No service: No Meds Allergies Allergy/AdvReac Type Severity Reaction Status Date / Time No Known Allergies Allergy Mild NOT Verified 08/20/20 15:37 APPLICABLE Home Medications Medication Instructions Recorded Confirmed Last Taken Type gabapentin 100 mg capsule 100 mg PO TID 07/23/20 10/07/20 08/25/20 History aspirin 81 mg PO DAILY 08/26/20 10/07/20 Unknown History atorvastatin 20 mg PO DAILY 08/26/20 10/07/20 08/25/20 History methadone 110 mg PO DAILY 08/26/20 10/07/20 Unknown History omeprazole 10/10/20 10/10/20 History Exam Exam Date and Time: October 09, 2020 0952 Height,Weight and Vital Signs: Height 5 ft 2 in Weight 77.111 kg Pertinent Lab Results Pertinent Lab Results: Laboratory Tests 08/27/20 08/27/20 06:22 06:22 WBC 5.3 Hgb 11.0 L Hct 34.7 L Plt Count 211 Sodium 138 Potassium 3.8 Chloride 102 Carbon Dioxide 28 BUN 11 D Creatinine 0.70 Narrative Narrative: EKG 07/2020 Normal sinus rhythm Low voltage QRS Nonspecific T wave abnormality Abnormal ECG When compared with ECG of 20-APR-2019 09:13, Nonspecific T wave abnormality, worse in Lateral leads Assessment and Plan Assessment Anesthesia Assessment: Chart Reviewed Documented by User: Sierra Sung 10/10/20 12:00 [facility] Past Medical History Medical History Benign essential HTN CVA (cerebral vascular accident) Drug abuse Elevated cholesterol Endogenous depression Hx of ectopic Lab test negative for COVID-19 virus Positive colorectal cancer screening using Cologuard test Seizure Family History Family History Father Alive and well Mother Alive and well Surgical History Surgical History History of back surgery Hx of unilateral oophorectomy Social History Social History Household Members: Other Housing: House Alcohol intake: never Smoking Status: Current every day smoker Tobacco Type: Cigarette Cigarettes Per Day: 15 Years Smoked: 30 Smoked in Last 30 Days: Yes Patient Interested in Nicotine Replacement: No Second Hand Smoke Exposure: Yes Use of substances other than those prescribed or required for medical reasons: No Substance Use Type: Former Substance User and Heroin Substance Use Type Other:: currently taking methadone Advance Directives Information Provided: No Recently lost weight without trying: No service: No Meds Allergies Allergy/AdvReac Type Severity Reaction Status Date / Time No Known Allergies Allergy Mild NOT Verified 08/20/20 15:37 APPLICABLE Home Medications Medication Instructions Recorded Confirmed Last Taken Type gabapentin 100 mg capsule 100 mg PO TID 07/23/20 10/07/20 08/25/20 History aspirin 81 mg PO DAILY 08/26/20 10/07/20 Unknown History atorvastatin 20 mg PO DAILY 08/26/20 10/07/20 08/25/20 History methadone 110 mg PO DAILY 08/26/20 10/07/20 Unknown History omeprazole 10/10/20 10/10/20 History Exam Airway Mallampati Class: III TM Dist: >3cm Neck ROM: Limited Denture: Upper Heart: RRR Lungs: CTA Assessment and Plan Assessment Anesthesia Assessment: Anesthesia Plan Discussed and Chart Reviewed Final Anesthetic Review NPO: Yes ASA Class: III Final Preanesthetic Review: Meds/Allgs Chart Reviewed and Consent Obtain ed/Reviewed Patient Risk: Intermediate Procedure Risk: Low Anesthetic Plan Anesthetic Plan: MAC: Disposition: Standard PACU
[2020-10-10 10:33] VITALS: BP 99/64; PULSE 57; RESP 16; TEMP 35.9; O2SAT 96
[2020-10-10] MEDS: Sodium Phosphate,Mono-Dibasic 133 ML ENEMA PR (11:04)
--- NOTE | 2020-10-10 11:07 | PC.NURSE ---
laying on left side for fleet enema. tl well.
--- NOTE | 2020-10-10 11:18 | MHC.SHP ---
Pre-Procedural Eval Section B Chief Complaint: screening Details of Present Illness: Positive Cologard Relevant Family History (Specify if Yes): No Relevant Social History: Tobacco Use (1/2ppd) Present Medications: see Short Stay Collaborative assessment Medical History: Significant History (Hypertension, Depression, hx of substance abuse.) History of Previous Operations: No relevant previous surgery Allergies: Allergies Allergy/AdvReac Type Severity Reaction Status Date / Time No Known Allergies Allergy Mild NOT Verified 08/20/20 15:37 APPLICABLE Review of Systems Sugical H&P ROS: Negative: Constitution, Cardiovascular and Respiratory and Yes, Specify: Gastrointestinal (slight constipation tendency) Exam Surgical H&P Exam: Normal: HEENT, Normal: Heart, Normal: Lungs, Normal: Extremities and Normal: Abdomen Plan Diagnosis/Plan: Unchanged I have reviewed the history and physical and performed a pertinent physical examination on my patient. No changes have occurred unless specified. yes.
--- NOTE | 2020-10-10 11:25 | PC.NURSE ---
patients ouotput of stool was quigley liquid brown. no solids noted. md caballero aware. ok to proceed.
[2020-10-10] MEDS: Lactated Ringers 1,000 ML 100 ML IVCONT (11:37)
[2020-10-10 12:15] VITALS: BP 109/71; PULSE 52; RESP 18; TEMP 36.7; O2SAT 99
--- NOTE | 2020-10-10 12:19 | PM.OP ---
Brief Operative Note Date of Service: 10/10/20 Pre-op diagnosis: POSITIVE COLOGARD Post-op diagnosis: other (INCOMPLETE TO ASCENDING COLON--POOR PREP) Procedure: COLONOSCOPY TO JUST ABOVE HEPATIC FLEXURE Implants: NO Surgeon: Emilie Ludwig MD Anesthesia: MAC (MD HENRRY) Estimated blood loss (mL): 0 Pathology: none sent Condition: stable Disposition: PACU
[2020-10-10 12:30] VITALS: BP 119/64; BP 120/62; PULSE 49; PULSE 50; RESP 18; O2SAT 100
[2020-10-10 12:45] VITALS: BP 114/67; PULSE 49; RESP 18; O2SAT 99
[2020-10-10 13:00] VITALS: BP 121/71; PULSE 55; RESP 18; TEMP 36.4; O2SAT 97
--- NOTE | 2020-10-13 15:51 | W.PM.OPN ---
Operative Note Operative Note Date of Service: 10/10/20 Narrative: cc: ~ OPERATIVE Note: Date of Service: 10/10/20 Pre-op diagnosis: POSITIVE COLOGARD Post-op diagnosis: other (INCOMPLETE TO ASCENDING COLON--POOR PREP) Procedure: COLONOSCOPY TO JUST ABOVE HEPATIC FLEXURE Implants: NO Surgeon: Emilie Ludwig MD Anesthesia: MAC (MD HENRRY) Estimated blood loss (mL): 0 Pathology: none sent Condition: stable Disposition: PACU FINDINGS: OLU: Sphincter tone was slightly decreased Scope was introduced with no difficulty. From the start it was evident that the prep was not going to be good. There was a lot of fibrous residue as well as murky brown fluid with oil droplets mixed in. I was able to get to the level of the Hepatic Flexure with some time delays due to blockage of the suction port. Mucosa visiualized was normal. In region of hepatic flexure there was a prolapsed segment of colon. Despite maneuvering--I could not safely advance beyond that area. I decided to withdraw the scope and reevaluate our options. No large lesions had been seen distally. PLAN: REVIEW OF RECORD SHOWED REPORTS FROM 2019: H&H-12/34.9;normal renal function;[id number]; CT ABD/PELVIS: NORMAL SMALL AND LARGE BOWEL. Patient has had CVA. She has neuro residual. She is on a high dose of methadone. I think it would be helpful to see if we could do a ct enterograpy to further evaluate the region of the right colon. Will see if there are more current labs to be reviewed. Will need at least a 2 day prep before the next colonoscopy attempt. (Should be short term due to + Cologard.) Dictated By:Emilie Ludwig MDSigned By:<Electronically signed by Emilie Ludwig MD>10/10/20 1221 DD/ 1219TD/TT: 10/10/20 1219Transcriptionist:
== END 2020-10-10 13:40 ==
LOC: HO.SSS 09:58
PROVIDERS: PCP Internal Medicine; Visit Provider Internal Medicine Gastroenterology
PROC: 0DJD8ZZ Inspection of Lower Intestinal Tract, Via Natural or Artificial Opening Endoscopic (ICD-10-PCS; CPT 45378; principal; 2020-10-10 11:30)
DX: R19.5 Other fecal abnormalities (principal); I10 Essential (primary) hypertension; I69.931 Monoplegia of upper limb following unspecified cerebrovascular disease affecting right dominant side; R56.9 Unspecified convulsions; F33.2 Major depressive disorder, recurrent severe without psychotic features; F17.210 Nicotine dependence, cigarettes, uncomplicated; F11.20 Opioid dependence, uncomplicated; Z79.82 Long term (current) use of aspirin; Z79.899 Other long term (current) drug therapy
CPT/HCPCS: 45378

== ENCOUNTER → 2020-10-30 13:07 | Outpatient (BNVA) | payer MEDICARE, MEDICAID, SELFPAY | PROVIDERS: PCP Internal Medicine; Visit Provider Nurse Practitioner Family | DX: Z13.89 Encounter for screening for other disorder (principal) | CPT/HCPCS: Q3014 ==

== ENCOUNTER → 2021-02-05 09:39 | Outpatient (BNVA) | payer MEDICARE, MEDICAID, SELFPAY | PROVIDERS: PCP Internal Medicine; Visit Provider Nurse Practitioner Family | CPT/HCPCS: Q3014 ==

== ENCOUNTER 2021-09-10 11:22 | Outpatient (REF) | payer OTHER, MEDICAID, SELFPAY ==
[2021-09-10 12:17] LABS: Hematocrit 43.6 % (37.0-47.0); Mean Corpuscular HGB Conc 32.1 g/dl (31.0-35.0); Mean Corpuscular Volume 99.5 fL (80.0-98.0); Mean Platelet Volume 9.6 fL (9.4-12.3); Platelet Count 225 X10*3/uL (160-400); Red Blood Count 4.38 X10*6/uL (4.20-5.50); Red Cell Distribution Width 12.3 % (11.0-16.0); White Blood Count 7.4 X10*3/uL (4.8-10.8)
[2021-09-10 12:44] LABS: Alanine Aminotransferase 12 U/L (0-31); Albumin Level 4.1 g/dL (3.5-5.0); Alkaline Phosphatase 108 U/L (39-117); Anion Gap 18 (12-20); Aspartate Amino Transferase 15 U/L (5-31); Bilirubin Direct 0.2 mg/dL (0.0-0.5); Bilirubin Total 0.5 mg/dL (0.0-1.0); Blood Urea Nitrogen 7 mg/dL (9-16); Calcium 9.7 mg/dL (8.4-10.2); Carbon Dioxide 24 mmol/L (22-29); Chloride 101 mmol/L (96-108); Cholesterol 149 mg/dL; Estimated Glomerular Filt Rate > 60; Glucose Random 123 mg/dL (60-115); HDL Cholesterol 46 mg/dL; LDL Cholesterol Calculated 82 mg/dl; Potassium 4.4 mmol/L (3.3-5.1); Sodium 139 mmol/L (135-145); Total Protein 7.7 g/dL (6.5-8.0); Triglycerides 109 mg/dL
[2021-09-10 13:11] LABS: Thyroid Stimulating Hormone 1.74 uIU/mL (0.32-4.0)
== END 2021-09-10 11:23 | disposition home or self-care (01) ==
LOC: HO.LAB 11:22
PROVIDERS: Nurse Practitioner Family; PCP Internal Medicine; Visit Provider Internal Medicine
DX: Z12.11 Encounter for screening for malignant neoplasm of colon (principal); I10 Essential (primary) hypertension
CPT/HCPCS: 36415; 80048; 80061; 80076; 84443; 85027

== ENCOUNTER 2021-09-10 11:43 | Outpatient (REF) | payer OTHER, MEDICAID, SELFPAY ==
--- NOTE | ~2021-09-10 | MM_ITS ---
EXAMINATION: MM SCREENING DIGITAL BREAST TOMOSYNTHESIS, BILATERAL CLINICAL INFORMATION: Screening. Asymptomatic. The lifetime risk of breast cancer based on the Tyrer-Cuzick Model is 8%. COMPARISON: Mammography: 10/20/2019, 09/03/2016 TECHNIQUE: Digital breast tomosynthesis is performed in both the craniocaudal and mediolateral oblique views along with computer-aided detection (CAD). Synthesized 2D images are generated from the tomosynthesis. Additional bilateral MLO views are provided. FINDINGS: There are scattered areas of fibroglandular density (ACR BI-RADS breast composition Category b). There are no significant masses, abnormal calcifications, or other abnormalities. Again, there are intramammary nodes left breast anterior upper outer quadrant and central anterior 4:00 position. Right breast has small circumscribed nodule again present lower inner quadrant. There are some scattered benign round and rim calcifications. No significant changes. MM/MM tomosynthesis screening BI IMPRESSION: No mammographic evidence of malignancy. ASSESSMENT: BI-RADS 2: Benign RECOMMENDATION: Routine annual mammography screening. This patient's information was entered into a reminder system with a target due date for their next mammogram.
== END 2021-09-10 11:44 | disposition home or self-care (01) ==
LOC: HO.MAMMO 11:43
PROVIDERS: PCP Internal Medicine; Visit Provider Internal Medicine
DX: Z12.31 Encounter for screening mammogram for malignant neoplasm of breast (principal)
CPT/HCPCS: 77063; 77067

== ENCOUNTER 2022-03-20 15:48 | Emergency (ER) | payer MEDICARE, MEDICAID, SELFPAY ==
--- NOTE | 2022-03-20 16:28 | ED_ITS ---
HPI - General Adult General Chief complaint: Overdose Stated complaint: OD,NARCAN GIVEN W/GOOD RESULT PER EMS Time Seen by Provider: 03/20/22 15:56 Source: patient and EMS Mode of arrival: ambulatory Limitations: no limitations History of Present Illness HPI narrative: 56 yo female came in after used 1/2 bag of heroin, patient didn't use for a year. patient passed out after sniffing 1/2 bag of heroin was found u nresponsive by her mother, was given narcan 2 mg nasally. patient in the ED is awak and alert, with stable vs signs. Related Data Home Medications Medication Instructions Recorded Confirmed aspirin 81 mg tablet,delayed 81 mg PO DAILY 08/26/20 02/08/21 release methadone 10 mg/mL oral concentrate 110 mg PO DAILY 08/26/20 02/08/21 Previous Rx's Medication Instructions Recorded docusate sodium 100 mg capsule 100 mg PO DAILY #30 caps 10/30/20 lisinopril 10 mg tablet 10 mg PO DAILY #90 tabs 07/03/21 gabapentin 100 mg capsule 100 mg PO TID #270 caps 07/23/21 levetiracetam 500 mg tablet 500 mg PO BID #180 tabs 11/01/21 atorvastatin 20 mg tablet 20 mg PO DAILY #90 tabs 02/04/22 citalopram 20 mg tablet 30 mg PO DAILY 90 days #135 tabs 02/19/22 ropinirole 3 mg tablet 3 mg PO BEDTIME #90 tabs 02/23/22 alprazolam 1 mg tablet 1 mg PO BID PRN anxiety #30 tabs 03/20/22 Allergies Allergy/AdvReac Type Severity Reaction Status Date / Time No Known Allergies Allergy Mild NOT Verified 03/20/22 16:29 APPLICABLE Review of Systems Review of Systems: All other systems are reviewed and are negative Constitutional: Reports as per HPI and Reports no additional constitutional complaints Eyes: Reports as per HPI and Reports no additional eye complaints Reports system reviewed and no additional complaints, except as documented Cardiovascular: Reports as per HPI and Reports no additional cardiovascular complaints Respiratory: Reports as per HPI and Reports no additional respiratory complaints Gastrointestinal: Reports as per HPI and Reports no additional gastrointestinal complaints Genitourinary: Reports no additional female genitourinary complaints Musculoskeletal: Reports no additional musculoskeletal complaints Skin/Breast: Reports system reviewed and no additional complaints, except as docu Psychiatric: Reports no additional psychiatric complaints Endocrine: Reports no additional endocrine complaints Hematologic/Lymphatic: Reports no additional hematologic/lymphatic complaints Allergic/Immunologic: Reports no additional allergic/immunologic complaints Reports system reviewed and no additional complaints, except as documented and Reports Abnormal speech present [facility] Past Medical History Medical History Benign essential HTN CVA (cerebral vascular accident) Drug abuse Elevated cholesterol Endogenous depression Hx of ectopic Lab test negative for COVID-19 virus Positive colorectal cancer screening using Cologuard test Seizure Surgical History H/O colonoscopy History of back surgery Hx of unilateral oophorectomy Family History Family History Father Alive and well Mother Alive and well Social History Social History Household Members: Family and Other Housing: House Do you presently have visiting nurse or other home services: No Alcohol intake: never Patient Tobacco Use Status: Current everyday Tobacco user Tobacco use type: Cigarette Cigarettes Per Day: 6 Years Smoked: 30 e-Cigarette/Vaping Use: Never Used Second Hand Smoke Exposure: Yes Substance Use Type: Former Substance User Advance Directives: No Advance Directives Information Provided: Yes service: No Current occupational status: disabled Cognitive needs: No Hearing needs: No Vision needs: No Physical Exam ED Vital Signs: Vital Signs - 24 hr 03/20/22 16:29 Temperature 98.7 F Pulse Rate 97 Respiratory Rate 20 Blood Pressure 143/67 H Pulse Oximetry 96 Oxygen Delivery Method Room Air BMI result Body Mass Index 30.2 Vital signs have been reviewed as appeared to be correct. Blood pressure normal. Heart rate normal. Respiration rate normal. Temperature normal. Oxygen saturation normal. Appearance: Alert. Oriented X3. No acute distress. Head: Normal external exam. Normocephalic. Atraumatic. No Siddiqui signs noted. No raccoon eyes noted Eyes: PERRLA. EOMI. Conjunctiva and sclera normal. Eyelids normal. ENT: TM's Normal. Pharynx normal. Uvula midline. Moist mucous membranes. No trismus noted. No drooling noted. No muffled voice noted. Neck: Normal inspection. Neck supple. FROM. No adenopathy. Thyroid Normal. No meningeal signs. No neck mass noted. CVS: Normal heart rate and rhythm. Heart sound normal. No murmurs noted. Pulses normal throughout. Respiratory: No respiratory distress. Painless inspiration. Breath sounds normal. No wheezes/rales/rhonchi noted. Chest nontender. No accessory muscle usage noted or decreased air movement noted. Abdomen: Soft and nontender. Bowel sounds normal in all 4 quadrants. No distention noted. No organomegaly noted. No visible injury noted. Back: No CVA tenderness. Full range of motion noted. Skin: Skin warm and dry. Normal skin color. Normal skin turgor. No rashes/lesions/lacerations noted. Extremities: No lower extremity edema. Extremities exhibit normal range of motion. Extremities nontender. Neuro: Oriented X 3. Cranial nerve exam: II-XII are grossly intact No motor deficit. No sensory deficit. Reflexes normal. Course Course Course Narrative: patient is AAOx3, no SI or HI, patient remained in the emergency department for observation has stable vital signs, patient now is awake, alert, oriented x3, will call her mom for a ride. Patient refused to wait for the care team and wanted to be discharged. Discharge Plan Discharge Clinical Impression: Substance abuse Patient Disposition: Home, Self-Care Instructions: Polysubstance Abuse (ED) Prescriptions: No Action lisinopril 10 mg tablet 10 mg PO DAILY Qty: 90 1RF levetiracetam 500 mg tablet 500 mg PO BID Qty: 180 1RF atorvastatin 20 mg tablet 20 mg PO DAILY Qty: 90 1RF ropinirole 3 mg tablet 3 mg PO BEDTIME Qty: 90 0RF alprazolam 1 mg tablet 1 mg PO BID PRN (Reason: anxiety) Qty: 30 0RF methadone 10 mg/mL Concentrate 110 mg PO DAILY Rx Instructions: MERGED WITH [facility] aspirin 81 mg Tablet,Delayed Release (Dr/Ec) 81 mg PO DAILY gabapentin 100 mg capsule 100 mg PO TID Qty: 270 1RF citalopram 20 mg tablet 30 mg PO DAILY 90 Days Qty: 135 1RF docusate sodium 100 mg capsule 100 mg PO DAILY Qty: 30 3RF
[2022-03-20 16:29] VITALS: BP 143/67; BP 144/96; PULSE 122; PULSE 97; RESP 20; TEMP 37.1; O2SAT 96; O2SAT 98; BMI 30.2
--- NOTE | 2022-03-20 17:26 | PC.NURSE ---
PATIENT REFUSED TO GET CHANGE INTO HOSPITAL ATTIRE ,SECURITY CAME AND CHECK PATIENT ,EMILIANO JARA SAID IT WAS FINE .
[2022-03-20 18:00] VITALS: BP 138/92; PULSE 74; RESP 16; TEMP 36.6; O2SAT 98
== END 2022-03-20 18:27 | disposition home or self-care (01) ==
PROVIDERS: Emergency Provider Emergency Medicine
DX: F19.10 Other psychoactive substance abuse, uncomplicated (principal); F11.20 Opioid dependence, uncomplicated; I10 Essential (primary) hypertension; E78.5 Hyperlipidemia, unspecified; F41.1 Generalized anxiety disorder; F17.210 Nicotine dependence, cigarettes, uncomplicated; Z86.73 Personal history of transient ischemic attack (TIA), and cerebral infarction without residual deficits; Z79.899 Other long term (current) drug therapy; Z79.02 Long term (current) use of antithrombotics/antiplatelets
CPT/HCPCS: 99283

== ENCOUNTER 2023-06-21 08:59 | Outpatient (AMB) | payer OTHER, MEDICAID, SELFPAY ==
--- NOTE | 2023-06-21 09:28 | MHC.PC.OV ---
Vital Signs 06/21/23 09:33 Height 5 ft 3 in Weight 181 lb 6 oz BMI 32.1 BP 130/70 Blood Pressure Location Lt brachial Position Sitting Pulse 92 Pulse Source Pulse Oximeter Pulse Oximetry (%) 94 Oxygen Delivery Method Room Air Intake Visit Reasons: Annual Physical Intake Note: Patient is here today for a physical. Metal Fabricator Required: No Frame Builder: Not Required per policy Accompanied by: Self / Same As Patient Allergies No Known Allergies Allergy (Mild, Verified 06/21/23 09:42) NOT APPLICABLE Medication List - Last Reconciled 06/21/23 by RIDGE Bull alprazolam 1 mg PO BID PRN aspirin 81 mg PO DAILY atorvastatin 20 mg PO DAILY citalopram 30 mg (1.5 x 20 mg) PO DAILY 90 days docusate sodium 100 mg PO DAILY gabapentin 100 mg PO TID levetiracetam 500 mg PO BID lisinopril 10 mg PO DAILY methadone 130 mg PO DAILY ropinirole 3 mg PO BEDTIME Tobacco use date assessed: 06/21/23 Dental Screening Dental Screen Date: 06/21/23 Did you have a dental visit in the last 12 months?: No Did you have a dental problem in the last 6 months where you did not have access to dental care?: No Was dental information given to patient?: No HPI HPI Comments History of Present Illness Details 57-year-old female past medical history significant for hypertension, generalized anxiety disorder, CVA, hypercholesteremia and depression. Patient of Dr. Man presents today for physical exam. Patient states not currently following with a counselor, declined counseling referral at this time. Patient requesting refill on alprazolam 1 mg p.o. b.i.d. as needed, Rx sent to patient's pharmacy. Denies chest pain, palpitations, shortness of breath and syncope. Eye exam: 5years ago, recommended updated eye exam. Mammogram: Aug 2021: neg, order entered for this. Colonscopy: History of positive Cologuard; colonoscopy completed Sep [address] Ludwig appears patient did not have adequate prep. Referral entered to gastroenterology for her repeat colonoscopy if warranted. Flu shot given in office today. [facility] Medical History Hx of ectopic Elevated cholesterol Lab test negative for COVID-19 virus Drug abuse Seizure CVA (cerebral vascular accident) Positive colorectal cancer screening using Cologuard test Benign essential HTN Endogenous depression Surgical History H/O colonoscopy Hx of unilateral oophorectomy History of back surgery Family History Father Alive and well Mother Alive and well Social History Household Members: Family and Other Housing: House Do you presently have visiting nurse or other home services: No Alcohol intake: never Patient Tobacco Use Status: Current everyday Tobacco user Tobacco use type: Cigarette Cigarettes Per Day: 3 Years Smoked: 30 e-Cigarette/Vaping Use: Never Used Second Hand Smoke Exposure: Yes Substance Use Type: Former Substance User service: No Current occupational status: disabled Cognitive needs: No Hearing needs: No Vision needs: No Questionnaire Thrive Questionnaire Date Thrive assessed: 10/15/22 SHERI-7 AMB Questionnaire SHERI-7 Date SHERI - 7 assessed: 10/15/22 Source: Developed by Drs. Erik Rogers, Anaid Dietz, Ilan An and colleagues, with an educational tigist from [employer]. Review of Systems Const Denies chills, Denies fatigue, Denies fever(s) and Denies poor appetite Eyes Denies no additional complaints ENT Reports Normal hearing present Card Denies chest pain, Denies syncope, Denies rapid heart rate and Denies dyspnea Resp Denies cough and Denies dyspnea GI Denies change in stool character, Denies constipation, Denies diarrhea, Denies nausea and Denies vomiting Denies urinary frequency, Denies dysuria and Denies urinary urgency Musc Details: Residual right arm weakness from previous stroke. Neuro Reports Normal hearing present, Denies confusion and Denies syncope Psych Denies confusion Endo Denies fatigue Physical exam (Primary Care) Vital Signs: Last Vital Signs Pulse 92 06/21/23 09:33 BP 130/70 06/21/23 09:33 Pulse Ox 94 06/21/23 09:33 Oxygen Delivery Method Room Air 06/21/23 09:33 BMI result Body Mass Index 32.1 Tobacco/Smoking Status: Tobacco use Status Tobacco use date assessed 06/21/23 06/21/23 09:35 Patient Tobacco Use Status Current everyday Tobacco 06/21/23 09:35 Tobacco use type Cigarette 06/21/23 09:35 e-Cigarette/Vaping Use Never Used 06/21/23 09:35 Thrive Assessment: Date of Thrive Assessment Date Thrive assessed 10/15/22 06/21/23 09:35 Const General: No confusion Orientation/consciousness: No confusion HENMT Head: Yes normocephalic and Yes atraumatic Ears: external ears normal and TM's normal bilaterally General nose exam: Normal external nose present and Normal nasal mucous membranes and turbinates present Face and sinus: Yes normal facial exam and Yes sinuses nontender Mouth: moist mucous membranes Throat: Yes tonsils normal Eyes Conjunctivae: conjunctivae normal Sclerae: sclerae normal Pupils: Equal, round and reactive pupils present and Pupils normal by confrontation EOM: EOMs intact bilaterally Direct Ophthalmoscopy: normal light reflex Neck Neck: Yes no lymphadenopathy and Yes supple Thyroid: Thyroid normal Chest Chest palpation & inspection: normal inspection of the chest Resp Effort & Inspection: normal respiratory effort Auscultation: clear to auscultation bilaterally, no crackles, no rhonchi and no wheezes Cardio Rate: regular rate Rhythm: regular rhythm Peripheral pulses: radial pulses present and dorsalis pedis present GI Inspection: Yes normal to inspection Palpation (GI): Soft to palpation, nontender and No hepatosplenomegaly present Auscultation: normoactive bowel sounds Skin General skin exam: no rashes or lesions noted Neuro General: No confusion Cranial nerves: Yes Equal, round and reactive pupils present and Yes Normal hearing present Cognition (Neuro): normal cognition Gait exam (Neuro): Normal gait present Motor exam (neuro): Other motor observations present (residula right arm weaknes noted from previous stroke) Deep tendon reflexes (DTR's): Right brachioradialis reflex intensity grade: 2+, Left brachioradialis reflex intensity grade: 2+, Right patellar reflex intensity grade: 2+ and Left patellar reflex intensity grade: 2+ Extrem General: No edema Office Procedures Flu Questionnaire Does the patient have a severe egg allergy?: No Does the patient have severe life threatening allergies?: No Does the patient have a fever or illness today?: No Has the patient ever had Guillain-Buckley Syndrome?: No Has the patient ever had any past reaction to a flu shot?: No Immunizations flu vacc [id number] 6mos up(PF) 60 mcg(15 mcgx4)/0.5 mL IM syringe Performing Provider: RIDGE Bull Performing Location: [facility] [place] [facility] Administered by: ANTONELLA Mcgowan on 06/21/23 10:03 Dose Route Admin Location Dispensed Lot Number Expiration Date NDC Support Group Manager 0.5 mL IM Left Deltoid 0.5 mL [id number] 02/27/24 82898-354-41 LP Amina VIS Given Date VIS Provided VIS Publication Date 06/21/23 Single Vaccine 21 Eligibility Eligibility Date Funding Source Not [facility] Eligible 06/21/23 Private Assessment and Plan Assessment & Plan (1) Elevated cholesterol: Code(s): E78.00 - Pure hypercholesterolemia, unspecified Plan: Fasting lipid panel ordered. Continue on atorvastatin 20 mg daily. Avoid fried foods, chicken skin, eggs, butter,margarine, pastries and?? red meat. (2) Benign essential HTN: Code(s): I10 - Essential (primary) hypertension Plan: Continue on lisinopril 10 mg daily. Blood pressure goal < 140/90. Follow low-salt diet exercise. (3) Generalized anxiety disorder: Code(s): F41.1 - Generalized anxiety disorder Plan: Continue on alprazolam 1mg bid prn, refill sent to patients pharmacy. (4) Physical exam, annual: Code(s): Z00.00 - Encounter for general adult medical examination without abnormal findings Plan: Follow-up in 1 year for annual physical exam. Plan Follow-up in 3 months Orders: Orders Influenza [id number] Immunization Today Z23 - Encounter for immunization Comprehensive Kim. Panel Fast Today I63.9 - Cerebral infarction, unspecified Complete Blood Count Auto Diff Today Z13.0 - Encounter for screening for diseases of the blood and blood-forming organs and certain disorders involving the immune mechanism TSH reflex Free T4 Today Z13.29 - Encounter for screening for other suspected endocrine disorder Vitamin D 25-OH Total Today Z13.21 - Encounter for screening for nutritional disorder Lipid Panel Today Z13.220 - Encounter for screening for lipoid disorders MM screening mammo BI Today Z12.31 - Encounter for screening mammogram for malignant neoplasm of breast Referrals Gastroenterology Referral Z12.11 - Encounter for screening for malignant neoplasm of colon Medications: New flu vacc [id number] 6mos up(PF) 0.5 mL IM ONCE 0.5 mL 0RF Z23 - Encounter for immunization Refilled alprazolam 1 mg PO BID PRN 30 tabs 0RF anxiety Coding Level of Care Code Est Pt Prev Care 40-64y(02312) Diagnoses Elevated cholesterol E78.00 Benign essential HTN I10 Generalized anxiety disorder F41.1 Physical exam, annual Z00.00
[2023-06-21 09:33] VITALS: BP 130/70; PULSE 92; O2SAT 94; BMI 32.1
== END 2023-06-21 10:00 | disposition home or self-care (01) ==
PROVIDERS: PCP Internal Medicine; Visit Provider Nurse Practitioner Family
DX: Z00.00 Encounter for general adult medical examination without abnormal findings (principal); E78.00 Pure hypercholesterolemia, unspecified; I10 Essential (primary) hypertension; F41.1 Generalized anxiety disorder; Z23 Encounter for immunization
CPT/HCPCS: 90471; 90686; 99396

== ENCOUNTER 2023-12-20 11:38 | Emergency (ER) | payer OTHER, MEDICAID, SELFPAY ==
[2023-12-20 11:44] VITALS: BP 142/76; PULSE 110; O2SAT 98
[2023-12-20 11:46] VITALS: BP 148/94; PULSE 96; RESP 16; TEMP 36.9; O2SAT 98; BMI 34.8
--- NOTE | 2023-12-20 12:26 | ECG_ITS ---
Test Reason : SEIZURE Blood Pressure : / mmHG Vent. Rate : 083 BPM Atrial Rate : 083 BPM P-R Int : 164 ms QRS Dur : 080 ms QT Int : 400 ms P-R-T Axes : 056 -03 041 degrees QTc Int : 470 ms Sinus rhythm Cannot rule out Anterior infarct , age undetermined Abnormal ECG When compared with ECG of 26-AUG-2020 10:43, Nonspecific T wave abnormality no longer evident in Lateral leads Referred By: Kia Mcgowan Electronically Signed By:ESME CROCKER MD
--- NOTE | 2023-12-20 12:30 | ED_ITS ---
HPI - Seizure General Chief Complaint: Seizure Stated Complaint: WIT SZ, POST ICTAL PER EMS Time Seen by Provider: 12/20/23 11:58 Source: patient and EMS Mode of arrival: EMS Limitations: altered mental status (Postictal) History of Present Illness HPI Narrative: Patient comes to the emergency room by ambulance. Earlier today, patient has mother witnessed by the patient had a seizure, according to the mother, the seizure lasted approximately 3 minutes. Patient states that she does not remember anything of what happened today. Patient denies alcohol abuse substance abuse. Patient states that she has no history of seizures. However, in 2019, patient was seen here for a seizure and was started on Keppra. Patient states that she does not recall that either. Patient states that she does not take Keppra or any antiseizure medications. Related Data Home Medications ?Medication ?Instructions ?Recorded ?Confirmed aspirin 81 mg tablet,delayed 81 mg PO DAILY 08/26/20 06/21/23 release methadone 10 mg/mL oral concentrate 130 mg PO DAILY 05/13/22 06/21/23 Previous Rx's ?Medication ?Instructions ?Recorded docusate sodium 100 mg capsule 100 mg PO DAILY #30 caps 10/30/20 gabapentin 100 mg capsule 100 mg PO TID #270 caps 04/22/22 levetiracetam 500 mg tablet 500 mg PO BID #180 tabs 05/02/22 citalopram 20 mg tablet 30 mg (1.5 x 20 mg) PO DAILY 90 11/12/22 days #135 tabs atorvastatin 20 mg tablet 20 mg PO DAILY #90 tabs 02/07/23 ropinirole 3 mg tablet 3 mg PO BEDTIME #90 tabs 10/26/23 lisinopril 10 mg tablet 10 mg PO DAILY #90 tabs 11/26/23 alprazolam 1 mg tablet 1 mg PO BID PRN anxiety #30 tabs 12/13/23 levetiracetam 500 mg tablet 500 mg PO BID 1 month #60 tabs 12/20/23 (Keppra) Allergies Allergy/AdvReac Type Severity Reaction Status Date / Time No Known Allergies Allergy Mild NOT Verified 12/20/23 11:58 APPLICABLE Review of Systems 2 Review of Systems: Constitutional : No Weight loss, No Fever, No Chills, No Night Sweats, No Fatigue, No Malaise ENT/Mouth : No Hearing loss, No Ear Pain, No Nasal Congestion, No Sinus Pain, No Hoarseness, No sore throat, No Rhinorrhea, No Swallowing Difficulty Eyes: No Eye Pain, No Swelling, No Redness, No Foreign Body, No Discharge, No Vision Changes Cardiovascular : No Chest Pain, No SOB, No Dyspnea on Exertion, No Orthopnea, No Edema, No Palpitations Respiratory : No Cough, No Sputum, No Wheezing, No Smoke Exposure, No Dyspnea Gastrointestinal : No Nausea, No Vomiting, No Diarrhea, No Constipation, No abdominal Pain, No Hematochezia, No Melena Genitourinary : no irregular bleeding, No Dysuria, No Urinary Frequency, No Hematuria, No Urinary Incontinence, No Urgency, No Flank Pain, No Urinary Flow Changes, No Hesitancy Musculoskeletal : No joint pain, No Myalgias, No Joint Swelling Skin : No Skin Lesions, No rash Neuro : Feeling a bit weak after a seizure, No Numbness, No Paresthesias, No Loss of Consciousness, No Dizziness, No Headache Psych : No Anxiety/Panic, No Depression, No SI/HI/AH/VH, No Social Issues, Heme/Lymph: No Bruising, No Bleeding,No Lymphadenopathy Endocrine : No Polyuria, No Polydipsia, No Temperature Intolerance PMFSH Past Medical History Medical History Hx of ectopic Elevated cholesterol Lab test negative for COVID-19 virus Drug abuse Seizure CVA (cerebral vascular accident) Positive colorectal cancer screening using Cologuard test Benign essential HTN Endogenous depression Surgical History H/O colonoscopy Hx of unilateral oophorectomy History of back surgery Family History Family History Father Alive and well Mother Alive and well Social History Social History Household Members: Family and Other Housing: House Do you presently have visiting nurse or other home services: No Alcohol intake: never Comment: seizure precations Patient Tobacco Use Status: Current everyday Tobacco user Tobacco use type: Cigarette Cigarettes Per Day: 3 Years Smoked: 30 Smoked in Last 30 Days: Yes e-Cigarette/Vaping Use: Never Used Second Hand Smoke Exposure: Yes Use of substances other than those prescribed or required for medical reasons: No Substance Use Type: Former Substance User Advance Directives: Yes Advance Directives Information Provided: No Advance Directives on File: No service: No Current occupational status: disabled Cognitive needs: No Hearing needs: No Vision needs: No Physical Exam 2 Vital Signs: Vital Signs: Last Vital Signs Temp 98.5 F 12/20/23 11:46 Pulse 74 12/20/23 14:10 Resp 17 12/20/23 14:10 BP 144/80 H 12/20/23 14:10 Pulse Ox 98 12/20/23 14:10 O2 Del Method Room Air 12/20/23 11:46 BMI result Body Mass Index 34.8 Const: Other: Appearance: Alert. Oriented X3. No acute distress. Since the bit confused but able to hold a coherent conversation. Eyes: Pupils equal, round and reactive to light. ENT: Pharynx normal. Neck: Normal inspection. Neck supple. No lymph nodes noted. No crepitus CVS: Normal heart rate and rhythm. Pulses normal. Normal S1 and S2 Respiratory: No respiratory distress. Breath sounds normal. No Wheezing. No rales Abdomen: Soft and nontender. No rigidity. No distention. Skin: Skin warm and dry. Normal skin color. Normal skin turgor. Extremities: No lower extremity edema. No Lacerations. No Rash Neuro: Oriented X 3. No motor deficit. No sensory deficit. Moving all extremities. No slurred speech. CN 2 through 12 grossly intact Psych: calm, cooperative, normal affect Course Course Course Narrative: -all of patient's labs pending -patient states she does not have history of seizures. However, it is recorded in her medical record that she was seen here in July of 2020, admitted and diagnosed with seizures and started on Keppra -patient states that she did not use any drugs. Patient does have history of opiate abuse. Medications Administered Discontinued Medications Generic Name Dose Route Start Last Admin Trade Name Freq PRN Reason Stop Dose Admin Levetiracetam 1,000 mg in 100 mls @ 400 mls/hr 12/20/23 12:37 12/20/23 12:47 Keppra IV 12/20/23 12:51 400 mls/hr ONCE ONE Administration Medical Decision Making Medical Decision Making [facility] Narrative: -my interpretation of labs: Normal hematology, chemistry within normal limits, lactic acid 2.6, likely secondary to seizure. Urinalysis shows trace leukocyte esterase, however the urine has a large amount of squamous epithelial cells, likely contaminant, antibiotics not indicated, patient denies UTI symptoms. Patient's urine toxicology positive for fentanyl, PCP and benzodiazepines. - Patient denies using drugs. Patient states that the fentanyl is prescribed by her PCP. 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 Patient received IV Keppra here in the ED, patient will continue taking Keppra p.o. b.i.d. as previously prescribed by Neurology and instructed to follow-up with Dr. Landon Differential Diagnosis Differential Diagnoses: The differential diagnosis associated with the presentation includes (Seizures, pseudoseizures, alcohol intoxication, polysubstance abuse) Admission/Observation Consideration of admission/observation: Escalation of care including admission/observation considered (Given patient's presentation, admission considered) Lab Data MDM Lab Attestation statement: I reviewed the patient's lab results. 12/20/23 12:46 12/20/23 13:12 Labs: Lab Results 12/20/23 12/20/23 12/20/23 Range/Units 12:46 13:12 13:20 WBC 4.8 (4.8-10.8) X10*3/uL RBC 4.26 (4.20-5.50) X10*6/uL Hgb 13.4 (12.0-16.0) g/dl Hct 39.2 (37.0-47.0) % MCV 92.0 (80.0-98.0) fL MCH 31.5 (27.0-33.0) pg MCHC 34.2 (31.0-35.0) g/dl RDW 11.9 (11.0-16.0) % Plt Count 206 (160-400) X10*3/uL MPV 10.9 (9.4-12.3) fL Immature Gran % (Auto) 0.4 (0.0-0.4) % Neut % (Auto) 82.6 H (45-73) % Lymph % (Auto) 11.0 L (20-40) % [place] % (Auto) 5.0 (2-11) % Eos % (Auto) 0.8 (0-4) % Baso % (Auto) 0.2 (0-2) % Lymph # (Auto) 0.5 L (1.2-4.9) X10*3/uL [place] # (Auto) 0.2 (0.1-1.2) X10*3/uL Eos # (Auto) 0.0 (0.0-0.4) X10*3/uL Baso # (Auto) 0.0 (0.0-0.2) X10*3/uL Abs Immat Gran (auto) 0.02 (0.00-0.03) X10*3/uL Absolute Neuts (auto) 4.0 (2.0-8.3) x10*3/uL Absolute Nucleated RBC 0.000 (0.0-0.012) X10*3/uL Nucleated RBC % (auto) 0.0 (0.0-0.2) /100WBC PT 11.6 (11.1-13.3) SEC INR 1.0 (0.9-1.1) Sodium 136 (135-145) mmol/L Potassium 4.3 (3.3-5.1) mmol/L Chloride 106 (96-108) mmol/L Carbon Dioxide 23 (22-29) mmol/L Anion Gap 11 L (12-20) BUN 6 L (9-16) mg/dL Creatinine 0.74 (0.5-1.4) mg/dL Estim Creat Clear Calc 84.5 Estimated GFR > 60 Random Glucose 176 H (60-115) mg/dL Lactic Acid 2.6 H* (0.5-2.0) mmol/L Calcium 9.0 D (8.4-10.2) mg/dL Magnesium 1.9 (1.6-2.6) mg/dL Total Bilirubin 0.2 (0.0-1.0) mg/dL Direct Bilirubin < 0.2 (0.0-0.5) mg/dL AST 13 (5-31) U/L ALT 10 (0-31) U/L Alkaline Phosphatase 94 (39-117) U/L Total Creatine Kinase 69 (26-140) U/L Troponin I High Sens 4.8 (<3.5-17.0) ng/L Total Protein 6.8 (6.5-8.0) g/dL Albumin 3.5 (3.5-5.0) g/dL Urine Color Yellow Urine Appearance Cloudy Urine pH 6.5 (5.0-9.0) Ur Specific [place] 1.010 (1.005-1.025) Urine Protein Trace (Neg-Trace) mg/dL Urine Glucose (UA) Negative (Negative) mg/dL Urine Ketones Trace (Negative) mg/dL Urine Blood Negative (Negative) Urine Nitrite Negative (Negative) Ur Leukocyte Esterase Trace H (Negative) Urine RBC 0-2 (0-2) /HPF Urine WBC 6-10 H (0-5) /HPF Ur Squamous Epith Cells 11-20 (0-2) /HPF Urine Bacteria 1+ (None Seen) Hyaline Casts 0-2 (0-2) /LPF Urine Opiates Screen Not Detected (Not Detect) Ur Buprenorphine Scrn Not Detected (Not Detect) ng/mL Ur Oxycodone Screen Not Detected (Not Detect) ng/mL Urine Methadone Screen Positive (Not Detect) ng/mL Urine Fentanyl Screen POSITIVE H (Not Detect) Ur Barbiturates Screen Not Detected (Not Detect) Ur Phencyclidine Scrn POSITIVE H (Not Detect) Ur Amphetamines Screen Not Detected (Not Detect) U Benzodiazepines Scrn POSITIVE H (Not Detect) Urine Cocaine Screen Not Detected (Not Detect) U Marijuana (THC) Screen Not Detected (Not Detect) Ethyl Alcohol < 10 mg/dL Critical Care Time Critical Care Time Critical Care Time: Yes Total Critical Care Time: 45 Attestation: I have personally provided critical care time. Time includes review of lab data, radiology results, discussion with consultants, and monitoring for potential decompensation. Intervention performed as documented. Discharge Plan Discharge Clinical Impression: Seizures, Polysubstance abuse Patient Disposition: Home, Self-Care Instructions: Polysubstance Abuse (ED), Recurrent Seizures in Adults (ED) Additional Instructions: Please follow-up with your primary care physician tomorrow. If you have any worsening or new symptoms, please return to the emergency room or call 911 Prescriptions: New levetiracetam [Keppra] 500 mg tablet 500 mg PO BID 30 Days Qty: 60 2RF No Action gabapentin 100 mg capsule 100 mg PO TID Qty: 270 1RF levetiracetam 500 mg tablet 500 mg PO BID Qty: 180 1RF citalopram 20 mg tablet 30 mg PO DAILY 90 Days Qty: 135 1RF atorvastatin 20 mg tablet 20 mg PO DAILY Qty: 90 1RF ropinirole 3 mg tablet 3 mg PO BEDTIME Qty: 90 0RF lisinopril 10 mg tablet 10 mg PO DAILY Qty: 90 1RF alprazolam 1 mg tablet 1 mg PO BID PRN (Reason: anxiety) Qty: 30 0RF aspirin 81 mg Tablet,Delayed Release (Dr/Ec) 81 mg PO DAILY methadone 10 mg/mL concentrate 130 mg PO DAILY Rx Instructions: [facility] docusate sodium 100 mg capsule 100 mg PO DAILY Qty: 30 3RF Referrals: Lam Landon MD [Physician] - Print Language: Yoruba
[2023-12-20] MEDS: levETIRAcetam in NaCl (iso-os) 1,000 MG/100 ML PIGGYBACK 400 MG IV (12:47)
[2023-12-20 12:54] LABS: MANUAL DIFF FLAG NO
[2023-12-20 13:00] LABS: Basophils Percent Auto 0.2 % (0-2); Eosinophils Percent Auto 0.8 % (0-4); Hematocrit 39.2 % (37.0-47.0); Hemoglobin 13.4 g/dl (12.0-16.0); Imm Gran Abs Auto 0.02 X10*3/uL (0.00-0.03); Imm Gran Pct Auto 0.4 % (0.0-0.4); Lymphocytes Absolute Auto 0.5 X10*3/uL (1.2-4.9); Mean Corpuscular HGB Conc 34.2 g/dl (31.0-35.0); Mean Corpuscular Hemoglobin 31.5 pg (27.0-33.0); Mean Platelet Volume 10.9 fL (9.4-12.3); Monocytes Absolute Auto 0.2 X10*3/uL (0.1-1.2); Neutrophils Percent Auto 82.6 % (45-73); Platelet Count 206 X10*3/uL (160-400); Red Blood Count 4.26 X10*6/uL (4.20-5.50); Red Cell Distribution Width 11.9 % (11.0-16.0); White Blood Count 4.8 X10*3/uL (4.8-10.8)
[2023-12-20 13:15] LABS: Lactic Acid 2.6 mmol/L (0.5-2.0)
[2023-12-20 13:21] LABS: Prothrombin Time 11.6 SEC (11.1-13.3)
[2023-12-20 13:29] LABS: Appearance Urine Cloudy; Color Urine Yellow; Glucose Urine UA Negative (Negative); Leukocyte Esterase Urine Trace (Negative); Nitrite Urine Negative (Negative); PH 6.5 (5.0-9.0); UMIC TRIGGER UACC YES; Urine Blood Negative (Negative); Urine Ketones Trace mg/dL (Negative); Urine Protein Trace mg/dL (Neg-Trace)
[2023-12-20 13:41] LABS: Bacteria Urine 1+ (None Seen); Hyaline Casts Urine 0-2 /LPF (0-2); RBC Urine 0-2 /HPF (0-2); UACC Culture Trigger YES
[2023-12-20 13:42] LABS: Amphetamine Screen Urine Not Detected (Not Detect); Barbiturates, Urine Not Detected (Not Detect); Benzodiazepines Screen Urine POSITIVE (Not Detect); Buprenorphine Scr Not Detected (Not Detect); Cannabinoid Screen Urine Not Detected (Not Detect); Cocaine Screen Urine Not Detected (Not Detect); Fentanyl, urine POSITIVE (Not Detect); Methadone Screen, Urine Positive (Not Detect); Opiate Screen Urine Not Detected (Not Detect); Oxycodone Screen Urine Not Detected (Not Detect); Phencyclidine Screen Urine POSITIVE (Not Detect)
[2023-12-20 13:50] LABS: Alanine Aminotransferase 10 U/L (0-31); Albumin Level 3.5 g/dL (3.5-5.0); Alkaline Phosphatase 94 U/L (39-117); Anion Gap 11 (12-20); Aspartate Amino Transferase 13 U/L (5-31); Bilirubin Direct < 0.2 mg/dL (0.0-0.5); Bilirubin Total 0.2 mg/dL (0.0-1.0); Blood Urea Nitrogen 6 mg/dL (9-16); Carbon Dioxide 23 mmol/L (22-29); Chloride 106 mmol/L (96-108); Creatinine Clr Calc Pharmacy 84.5; Estimated Glomerular Filt Rate > 60; Ethanol < 10 mg/dL; Glucose Random 176 mg/dL (60-115); Magnesium 1.9 mg/dL (1.6-2.6); Potassium 4.3 mmol/L (3.3-5.1); Sodium 136 mmol/L (135-145); Total Protein 6.8 g/dL (6.5-8.0)
[2023-12-20 13:56] LABS: Troponin-I High Sensitivity 4.8 ng/L (<3.5-17.0)
[2023-12-20 14:10] VITALS: BP 144/80; PULSE 74; RESP 17; O2SAT 98
[2023-12-20 14:52] LABS: Reflex Lactate? Lactic Acid Added
[2023-12-20 16:29] VITALS: BP 146/72; PULSE 75; RESP 16; O2SAT 96
[2023-12-20 17:11] VITALS: BP 146/72; PULSE 75; RESP 16; TEMP 36.9; O2SAT 96
== END 2023-12-20 17:12 | disposition home or self-care (01) ==
PROVIDERS: Emergency Provider Emergency Medicine; PCP Internal Medicine
DX: R56.9 Unspecified convulsions (principal); F19.10 Other psychoactive substance abuse, uncomplicated; I10 Essential (primary) hypertension; Z86.73 Personal history of transient ischemic attack (TIA), and cerebral infarction without residual deficits
CPT/HCPCS: 36415; 80048; 80076; 80307; 81001; 82550; 83605; 83735; 84484; 85025; 85610; 87086; 93005; 96365; 96366; 99284; J1953

== ENCOUNTER → 2023-12-20 12:26 | Outpatient (BNV) | payer OTHER, MEDICAID, SELFPAY | PROVIDERS: Emergency Provider Emergency Medicine; PCP Internal Medicine; Visit Provider Internal Medicine Cardiovascular Disease | DX: R94.31 Abnormal electrocardiogram [ECG] [EKG] (principal) | CPT/HCPCS: 93010 ==

== ENCOUNTER 2024-01-26 10:05 | Outpatient (AMB) | payer OTHER, MEDICAID, SELFPAY ==
--- NOTE | 2024-01-26 10:37 | A.OFFPC_ITS ---
Vital Signs 01/26/24 10:39 Height 5 ft 2 in Weight 183 lb 2 oz BMI 33.5 BP 128/62 Blood Pressure Location Lt brachial Position Sitting Pulse 95 Pulse Source Pulse Oximeter Pulse Oximetry (%) 94 Oxygen Delivery Method Room Air Intake Visit Reasons: Hypercholestermia,HTN Intake Note: Patient is here to follow up on HTN, Hypercholestermia. Promotional Marketing Analyst Required: No Splicing Machine Operator: Not Required per policy Accompanied by: Self / Same As Patient Allergies No Known Allergies Allergy (Mild, Verified 01/27/24 07:00) NOT APPLICABLE Medication List - Last Reconciled 01/27/24 by Adalberto Man MD alprazolam 1 mg PO BID PRN aspirin 81 mg PO DAILY atorvastatin 20 mg PO DAILY citalopram 30 mg (1.5 x 20 mg) PO DAILY 90 days docusate sodium 100 mg PO DAILY gabapentin 100 mg PO TID levetiracetam (Keppra) 500 mg PO BID 1 month lisinopril 10 mg PO DAILY methadone 130 mg PO DAILY ropinirole 3 mg PO BEDTIME Tobacco use date assessed: 01/26/24 Dental Screening Dental Screen Date: 01/26/24 Did you have a dental visit in the last 12 months?: No Did you have a dental problem in the last 6 months where you did not have access to dental care?: No Was dental information given to patient?: No HPI Hypercholestermia,HTN HPI Details 58 yr old female presents to the office to discuss her chronic medical conditions. Since last ov, patient had a seizure and was evaluated at the ER. Her tox screen was positive for Fentanyl. Keppra was restarted. Patient vehmantly denies use of street drugs. [facility] Medical History Hx of ectopic Elevated cholesterol Lab test negative for COVID-19 virus Drug abuse Seizure CVA (cerebral vascular accident) Positive colorectal cancer screening using Cologuard test Benign essential HTN Endogenous depression Surgical History H/O colonoscopy Hx of unilateral oophorectomy History of back surgery Family History Father Alive and well Mother Alive and well Social History (Updated 01/26/24 @ 10:43 by ANTONELLA Beasley) Household Members: Family and Other Housing: House Do you presently have visiting nurse or other home services: No Alcohol intake: never Comment: seizure precations Patient Tobacco Use Status: Current everyday Tobacco user Tobacco use type: Cigarette Cigarette Packs Per Day: 0.5 Cigarettes Per Day: 6 Years Smoked: 30 e-Cigarette/Vaping Use: Never Used Second Hand Smoke Exposure: Yes Substance Use Type: Former Substance User service: No Current occupational status: disabled Cognitive needs: No Hearing needs: No Vision needs: No Questionnaire PHQ-9 Over the last 2 weeks, how often have you been bothered by any of the following problems? 1. Little interest or pleasure in doing things: not at all 2. Feeling down, depressed, or hopeless: not at all 3. Trouble falling or staying asleep, or sleeping too much: not at all 4. Feeling tired or having little energy: not at all 5. Poor appetite or overeating: not at all 6. Feeling bad about yourself - or that you are a failure or have let yourself or your family down: not at all 7. Trouble concentrating on things, such as reading the newspaper or watching television: not at all 8. Moving or speaking so slowly that other people could have noticed. Or the opposite - being so fidgety or restless that you have been moving around a lot more than usual: not at all 9. Thoughts that you would be better off or of hurting yourself in some way: not at all Total score: 0 Depression Screening Interpretation: Negative Depression Screening Done: Yes Source: Developed by Drs. Erik Rogers, Anaid Dietz, Ilan An and colleagues, with an educational tigist from [employer]. Thrive Questionnaire Date Thrive assessed: 01/26/24 I am a: Patient What is your living situation today?: I have a steady place to live Within the past 12 months, did the food you bought not last and you didn't have the money to get more?: Never true Within the past 12 months, did you worry whether your food would run out before you got money to buy more?: Never true Do you have trouble paying for medicines?: No Do you have trouble getting transportation to medical appointments?: No Do you have trouble paying your heating and electricity bill?: No Do you have trouble taking care of your child, family member or friend?: No Do you have trouble with day-to-day activities such as bathing, preparing meals, shopping, managing finances, etc.?: No Are you currently unemployed and looking for a job?: No Are you interested in more education?: No Currently or been in a relationship where the following occur: no concerns reported THRIVE Score: 0 AUDIT C Alcohol Use Questionnaire (AUDIT-C) 1. How often do you have a drink containing alcohol?: Never Total Score: 0 SHERI-7 AMB Questionnaire SHERI-7 Date SHERI - 7 assessed: 01/26/24 Feeling nervous, anxious, or on edge: 0 = Not at all Not being able to stop or control worryin = Not at all Worrying too much about different things: 0 = Not at all Trouble relaxin = Not at all Being so restless that it is hard to sit still: 0 = Not at all Becoming easily annoyed or irritable: 0 = Not at all Feeling afraid as if something awful might happen: 0 = Not at all Total SHERI-7 score (0-4 normal; 5-9 mild; 10-14 moderate; 15-21 severe): 0 Source: Developed by Drs. Erik Rogers, Anaid Dietz, Ilan An and colleagues, with an educational tigist from [employer]. Physical exam (Primary Care) Vital Signs: Last Vital Signs Pulse 95 01/26/24 10:39 BP 128/62 01/26/24 10:39 Pulse Ox 94 01/26/24 10:39 Oxygen Delivery Method Room Air 01/26/24 10:39 BMI result Body Mass Index 33.5 Tobacco/Smoking Status: Tobacco use Status Tobacco use date assessed 01/26/24 01/26/24 10:44 Patient Tobacco Use Status Current everyday Tobacco 01/26/24 10:44 Tobacco use type Cigarette 01/26/24 10:44 e-Cigarette/Vaping Use Never Used 01/26/24 10:44 PHQ-9: PHQ-9 Score PHQ-9: Total score 0 01/26/24 10:44 Depression Screening Interpretation: Negative Thrive Assessment: Date of Thrive Assessment Date Thrive assessed 01/26/24 01/26/24 10:44 Currently or been in a relationship where the following occur: no concerns reported Const General: cooperative and healthy appearing Nutritional Appearance: well nourished Orientation/consciousness: patient oriented x3 Limitations: no limitations HENMT Head: Yes normal to inspection Eyes General: appearance normal, both eyes and all related structures Neck Neck: Yes normal visual inspection Chest Chest palpation & inspection: normal palpation of entire chest wall Resp Effort & Inspection: normal respiratory effort Neuro General: patient oriented x3 Assessment and Plan Assessment & Plan (1) Endogenous depression: Code(s): F33.2 - Major depressive disorder, recurrent severe without psychotic features (2) Drug abuse: Comment: past history-currently taking methadone Code(s): F19.10 - Other psychoactive substance abuse, uncomplicated Plan: Concerned about use of street drugs along with prescription alprazolam. Informed patient that she would need to see a mental health provider to reassess her medications for depression. An appt has been scheduled. Orders: Referrals Psychiatry Outpatient Consultation Service F19.10 - Other psychoactive substance abuse, uncomplicated, F33.2 - Major depressive disorder, recurrent severe without psychotic features Coding Level of Care Code Est Pt Level 4 (68505) Complex EM visit Add On G2211 Diagnoses Endogenous depression F33.2 Drug abuse F19.10
[2024-01-26 10:39] VITALS: BP 128/62; PULSE 95; O2SAT 94; BMI 33.5
== END 2024-01-26 11:37 | disposition home or self-care (01) ==
PROVIDERS: PCP Internal Medicine; Visit Provider Internal Medicine
DX: F33.2 Major depressive disorder, recurrent severe without psychotic features (principal); F19.10 Other psychoactive substance abuse, uncomplicated
CPT/HCPCS: 99214; G2211

== ENCOUNTER 2024-05-15 14:02 | Outpatient (AMB) | payer OTHER, MEDICAID, SELFPAY ==
--- NOTE | 2024-05-15 14:03 | A.OFFPC_ITS ---
Intake Visit Reasons: 3month f/u [phone] Intake Note: Patient is here to follow up on HTN,Depression, Drug abuse. Faith Doctor Required: No Balloon Dipper: Not Required per policy Accompanied by: Self / Same As Patient Allergies No Known Allergies Allergy (Mild, Verified 05/15/24 14:50) NOT APPLICABLE Medication List - Last Reconciled 05/15/24 by Adalberto Man MD alprazolam 1 mg PO BID PRN aspirin 81 mg PO DAILY atorvastatin 20 mg PO DAILY citalopram 20 mg PO DAILY 90 days gabapentin 100 mg PO TID lisinopril 10 mg PO DAILY methadone 130 mg PO DAILY ropinirole 3 mg PO BEDTIME Tobacco use date assessed: 01/26/24 Dental Screening Dental Screen Date: 01/26/24 HPI 3month f/u [phone] HPI Details 58-year-old female wishes to discuss her medical health via tele health. Patient reports that she is no longer abusing drugs off the street. Continues to be on the methadone. Taking alprazolam for anxiety. Has discontinued the Keppra medication. Continues to take gabapentin. Patient lives alone. Able to function and do activities of daily living. Patient has not had her annual mammography yet. [facility] Medical History Hx of ectopic Elevated cholesterol Lab test negative for COVID-19 virus Drug abuse Seizure CVA (cerebral vascular accident) Positive colorectal cancer screening using Cologuard test Benign essential HTN Endogenous depression Surgical History H/O colonoscopy Hx of unilateral oophorectomy History of back surgery Family History Father Alive and well Mother Alive and well Social History Household Members: Family and Other Housing: House Do you presently have visiting nurse or other home services: No Alcohol intake: never Comment: seizure precations Patient Tobacco Use Status: Current everyday Tobacco user Tobacco use type: Cigarette Cigarette Packs Per Day: 0.5 Cigarettes Per Day: 6 Years Smoked: 30 Packs Per Year: 15 Packs per year/per ci.00 e-Cigarette/Vaping Use: Never Used Second Hand Smoke Exposure: Yes Substance Use Type: Former Substance User service: No Current occupational status: disabled Cognitive needs: No Hearing needs: No Vision needs: No Questionnaire Thrive Questionnaire Date Thrive assessed: 01/26/24 SHERI-7 AMB Questionnaire SHERI-7 Date SHERI - 7 assessed: 01/26/24 Source: Developed by Drs. Erik Rogers, Anaid Dietz, Ilan An and colleagues, with an educational tigist from [employer]. Physical exam (Primary Care) Tobacco/Smoking Status: Tobacco use Status Tobacco use date assessed 01/26/24 05/15/24 14:06 Patient Tobacco Use Status Current everyday Tobacco 05/15/24 14:06 Tobacco use type Cigarette 05/15/24 14:06 e-Cigarette/Vaping Use Never Used 05/15/24 14:06 Thrive Assessment: Date of Thrive Assessment Date Thrive assessed 01/26/24 05/15/24 14:06 Telehealth Telehealth Telehealth Platform: [employer] Location of provider rendering services: practice address Location of patient: address on file Patient Identification confirmed using: Name, : Yes Telehealth method: voice only Patient verbally consented to treatment: Yes Patient verbally consented to billing insurance company: Yes Patient informed of any privacy concerns related to visit: Yes Minutes spent on Phone/Video with Pt.: 15 Assessment and Plan Assessment & Plan (1) Drug abuse: Comment: past history-currently taking methadone Code(s): F19.10 - Other psychoactive substance abuse, uncomplicated Plan: Continue methadone at same dosage. (2) CVA (cerebral vascular accident): Comment: 03/2019-residual right arm weakness Code(s): I63.9 - Cerebral infarction, unspecified Plan: Keppra has been discontinued. (3) Benign essential HTN: Code(s): I10 - Essential (primary) hypertension Plan: Blood pressure is at range. Continue medications at same dosage. Blood work has been ordered. Orders: Orders MM screening mammo BI Today Z12.31 - Encounter for screening mammogram for malignant neoplasm of breast Medications: Changed From citalopram 30 mg (1.5 x 20 mg) PO DAILY 135 tabs 1RF 90 days To citalopram 20 mg PO DAILY 90 tabs 1RF 90 days Discontinued levetiracetam (Keppra) Discontinued Reason: Doctor's Order 500 mg PO BID 60 tabs 2RF 1 month Coding Level of Care Code Est Pt Level 4 (25142) Complex EM visit Add On G2211 Diagnoses Drug abuse F19.10 CVA (cerebral vascular accident) I63.9 Benign essential HTN I10
== END 2024-05-15 16:53 | disposition home or self-care (01) ==
LOC: HO.HMCH 14:02
PROVIDERS: PCP Internal Medicine; Visit Provider Internal Medicine
DX: F19.10 Other psychoactive substance abuse, uncomplicated (principal); I63.9 Cerebral infarction, unspecified; I10 Essential (primary) hypertension

== ENCOUNTER → 2024-05-15 14:02 | Outpatient (BNVA) | payer OTHER, MEDICAID, SELFPAY | PROVIDERS: PCP Internal Medicine; Visit Provider Internal Medicine | DX: F19.10 Other psychoactive substance abuse, uncomplicated (principal); I10 Essential (primary) hypertension; Z79.899 Other long term (current) drug therapy | CPT/HCPCS: 99212 ==

== ENCOUNTER 2024-05-18 06:54 | Emergency (ER) | payer OTHER, MEDICAID, SELFPAY ==
[2024-05-18 07:22] VITALS: BP 158/90; BP 170/90; PULSE 102; PULSE 81; RESP 14; TEMP 37.1; O2SAT 95; O2SAT 98; BMI 28.3
--- NOTE | 2024-05-18 07:28 | ECG_ITS ---
Test Reason : seizure Blood Pressure : / mmHG Vent. Rate : 071 BPM Atrial Rate : 071 BPM P-R Int : 140 ms QRS Dur : 074 ms QT Int : 492 ms P-R-T Axes : 052 -09 060 degrees QTc Int : 534 ms Normal sinus rhythm Low voltage QRS Nonspecific T wave abnormality Prolonged QT Abnormal ECG When compared with ECG of 20-DEC-2023 12:50, Nonspecific T wave abnormality, worse in Inferior leads Nonspecific T wave abnormality now evident in Lateral leads QT has lengthened Referred By: Yakelin Dye Electronically Signed By:CECILIA GAR
[2024-05-18 07:45] LABS: MANUAL DIFF FLAG NO
[2024-05-18] MEDS: LORazepam 2 MG/ML VIAL 0.5 MG IVPUSH (07:46)
[2024-05-18 07:47] LABS: Basophils Percent Auto 0.3 % (0-2); Eosinophils Percent Auto 0.6 % (0-4); Hematocrit 41.1 % (37.0-47.0); Hemoglobin 13.9 g/dl (12.0-16.0); Imm Gran Abs Auto 0.04 X10*3/uL (0.00-0.03); Imm Gran Pct Auto 0.6 % (0.0-0.4); Lymphocytes Absolute Auto 1.2 X10*3/uL (1.2-4.9); Lymphocytes Percent Auto 17.2 % (20-40); Mean Corpuscular HGB Conc 33.8 g/dl (31.0-35.0); Mean Corpuscular Hemoglobin 31.5 pg (27.0-33.0); Mean Corpuscular Volume 93.2 fL (80.0-98.0); Mean Platelet Volume 9.5 fL (9.4-12.3); Monocytes Absolute Auto 0.4 X10*3/uL (0.1-1.2); Neutrophils Absolute Auto 5.5 x10*3/uL (2.0-8.3); Neutrophils Percent Auto 76.3 % (45-73); Platelet Count 171 X10*3/uL (160-400); Red Blood Count 4.41 X10*6/uL (4.20-5.50); Red Cell Distribution Width 12.9 % (11.0-16.0); White Blood Count 7.1 X10*3/uL (4.8-10.8)
[2024-05-18] MEDS: levETIRAcetam in NaCl (iso-os) 1,000 MG/100 ML PIGGYBACK 400 MG IV (07:48)
--- NOTE | 2024-05-18 08:02 | ED_ITS ---
HPI - Seizure General Chief Complaint: Seizure Stated Complaint: wit sz, 8-10 min, hx sz, hx of stroke Time Seen by Provider: 05/18/24 06:57 Source: patient, EMS and old records reviewed Mode of arrival: EMS Limitations: other (poor historian) History of Present Illness ED Provider: RUDOLPH HPI Narrative: 58 yo female with PMH of drug abuse, seizures confirmed by EEG in 2019 last keppra dose about 6 months ago was on 500mg BID felt like she didn't need it as she hasn't had a seizure in 2 years, HTN, CVA, HLD, here with c/o seizure at home lasting 8-10 min. Denies drug use to me. No meds given by EMS. She is slightly dazed on arrival no tongue biting or incontinence. No head trauma. She notes she will start taking the keppra now. She denies recent illness, infection, headaches, vomiting. MD complaint: seizure Onset (ago): minute(s) ([employer]) Description of Episode: loss of consciousness and tonic-clonic movement Duration of episode: 8 -: minutes(s) Witnessed: Yes - by Bystander Trauma: No Seizure History: Yes Place: Home Possible Precipitating Event: other (not taking medications hx of drug abuse) Associated symptoms: denies other symptoms Treatments prior to arrival: none Related Data Home Medications ?Medication ?Instructions ?Recorded ?Confirmed aspirin 81 mg tablet,delayed 81 mg PO DAILY 08/26/20 06/21/23 release methadone 10 mg/mL oral concentrate 155 mg PO DAILY 05/13/22 05/18/24 Previous Rx's ?Medication ?Instructions ?Recorded gabapentin 100 mg capsule 100 mg PO TID #270 caps 04/22/22 atorvastatin 20 mg tablet 20 mg PO DAILY #90 tabs 02/07/23 lisinopril 10 mg tablet 10 mg PO DAILY #90 tabs 03/31/24 ropinirole 3 mg tablet 3 mg PO BEDTIME #90 tabs 04/25/24 alprazolam 1 mg tablet 1 mg PO BID PRN anxiety #30 tabs 05/09/24 citalopram 20 mg tablet 20 mg PO DAILY 90 days #90 tabs 05/15/24 levetiracetam 500 mg tablet 500 mg PO BID #60 tabs 05/18/24 (Keppra) Allergies Allergy/AdvReac Type Severity Reaction Status Date / Time No Known Allergies Allergy Mild NOT Verified 05/18/24 07:24 APPLICABLE Review of Systems 2 Review of Systems: Constitutional : No Fever, No Chills, No Fatigue ENT/Mouth : No sore throat, No Rhinorrhea Eyes: No Eye Pain, No Swelling, No Redness Cardiovascular : No Chest Pain, No SOB, No Dyspnea on Exertion Respiratory : No Cough, No Sputum Gastrointestinal : No Nausea, No Vomiting, No Diarrhea, No abdominal Pain Genitourinary : No Dysuria, No Urinary Frequency, No Hematuria, Musculoskeletal : No joint pain, No Myalgias, No Joint Swelling Skin : No Skin Lesions, No rash Neuro : No Weakness, No Numbness, No Dizziness, no Headache All other systems reviewed and are negative [facility] Past Medical History Attestation statement: The following information was validated with the patient. Source: old records reviewed Medical History Hx of ectopic Elevated cholesterol Lab test negative for COVID-19 virus Drug abuse Seizure CVA (cerebral vascular accident) Positive colorectal cancer screening using Cologuard test Benign essential HTN Endogenous depression Surgical History H/O colonoscopy Hx of unilateral oophorectomy History of back surgery Family History Family History Father Alive and well Mother Alive and well Social History Social History Household Members: Family and Other Housing: House Do you presently have visiting nurse or other home services: No Alcohol intake: never Comment: seizure precations Patient Tobacco Use Status: Current everyday Tobacco user Tobacco use type: Cigarette Cigarette Packs Per Day: 0.5 Cigarettes Per Day: 6 Years Smoked: 30 Smoked in Last 30 Days: Yes e-Cigarette/Vaping Use: Never Used Second Hand Smoke Exposure: Yes Use of substances other than those prescribed or required for medical reasons: No Substance Use Type: Former Substance User Advance Directives: No Advance Directives Information Provided: No Do you have a plan to hurt others: No Plan Patient : No service: No Current occupational status: disabled Cognitive needs: No Hearing needs: No Vision needs: No Physical Exam 2 Vital Signs: Vital Signs: Last Vital Signs Temp 97.9 F 05/18/24 12:14 Pulse 71 05/18/24 12:14 Resp 18 05/18/24 12:14 BP 149/74 H 05/18/24 12:14 Pulse Ox 96 05/18/24 12:14 O2 Del Method Room Air 05/18/24 12:14 BMI result Body Mass Index 28.3 Appearance: Alert. Oriented X3. No acute distress. Eyes: Pupils equal, round and reactive to light. ENT: Pharynx normal. no tongue biting atraumatic Neck: Normal inspection. Neck supple. CVS: Normal heart rate and rhythm. Pulses normal. Respiratory: No respiratory distress. Breath sounds normal. Abdomen: Soft and non-tender. Skin: Skin warm and dry. Normal skin color. Normal skin turgor. Extremities: No lower extremity edema. Neuro: Oriented X 3. No motor deficit. No sensory deficit. Course Course Course Narrative: 3 hours no events and she is not acidotic no tongue biting no incontinence seems atypical for such a prolonged seizure will DC home Medications Administered Discontinued Medications Generic Name Dose Route Start Last Admin Trade Name Jonelq PRN Reason Stop Dose Admin Levetiracetam 1,000 mg in 100 mls @ 400 mls/hr 05/18/24 07:27 05/18/24 08:10 Keppra IV 05/18/24 07:41 Infused ONCE ONE Infusion Magnesium Sulfate 2 gm in 50 mls @ 25 mls/hr 05/18/24 08:07 05/18/24 11:41 Magnesium Sulfate/H2o IV 05/18/24 10:06 Infused ONCE ONE Infusion Lorazepam 0.5 mg 05/18/24 07:28 05/18/24 07:46 Lorazepam 2 Mg/Ml Vial IVPUSH 05/18/24 07:29 0.5 mg STAT STA Administration Methadone HCl 155 mg 05/18/24 10:18 05/18/24 11:46 Methadone Hcl 20 Mg/2 Ml Oral.Conc PO 05/18/24 10:19 155 mg ONCE ONE Administration Medical Decision Making Medical Decision Making [facility] Narrative: 58 yo female with PMH of drug abuse, seizures confirmed by EEG in 2019 not compliant with keppra, HTN, CVA, HLD, here with c/o witnessed seizure at home not compliant with her medications at this time labs, EKG, IV keppra and IV ativan ordered. No headache and no head trauma reported. Will monitor. She agrees to start back on her keppra. She denies preceding event other than not taking her keppra as a cause of her symptoms. Differential Diagnosis Differential Diagnoses: The differential diagnosis associated with the presentation includes seizure, non compliance, lyte abnormality, drug abuse Admission/Observation Consideration of admission/observation: Escalation of care including admission/observation considered at baseline 3 hours no repeat seizures and labs and exam not 100% consistent with [address] loaded and treated with medications repeat qtc better stable for DC Lab Data MDM Lab Attestation statement: I reviewed the patient's lab results. 05/18/24 07:41 05/18/24 07:41 Labs: Lab Results 05/18/24 Range/Units 07:41 WBC 7.1 (4.8-10.8) X10*3/uL RBC 4.41 (4.20-5.50) X10*6/uL Hgb 13.9 (12.0-16.0) g/dl Hct 41.1 (37.0-47.0) % MCV 93.2 (80.0-98.0) fL MCH 31.5 (27.0-33.0) pg MCHC 33.8 (31.0-35.0) g/dl RDW 12.9 (11.0-16.0) % Plt Count 171 (160-400) X10*3/uL MPV 9.5 (9.4-12.3) fL Immature Gran % (Auto) 0.6 H (0.0-0.4) % Neut % (Auto) 76.3 H (45-73) % Lymph % (Auto) 17.2 L (20-40) % [place] % (Auto) 5.0 (2-11) % Eos % (Auto) 0.6 (0-4) % Baso % (Auto) 0.3 (0-2) % Lymph # (Auto) 1.2 (1.2-4.9) X10*3/uL [place] # (Auto) 0.4 (0.1-1.2) X10*3/uL Eos # (Auto) 0.0 (0.0-0.4) X10*3/uL Baso # (Auto) 0.0 (0.0-0.2) X10*3/uL Abs Immat Gran (auto) 0.04 H (0.00-0.03) X10*3/uL Absolute Neuts (auto) 5.5 (2.0-8.3) x10*3/uL Absolute Nucleated RBC 0.000 (0.0-0.012) X10*3/uL Nucleated RBC % (auto) 0.0 (0.0-0.2) /100WBC Sodium 141 (135-145) mmol/L Potassium 3.7 (3.3-5.1) mmol/L Chloride 108 (96-108) mmol/L Carbon Dioxide 26 (22-29) mmol/L Anion Gap 11 L (12-20) BUN 9 (9-16) mg/dL Creatinine 0.83 (0.5-1.4) mg/dL Estim Creat Clear Calc 67.8 Estimated GFR > 60 Random Glucose 184 H (60-115) mg/dL Calcium 9.3 (8.4-10.2) mg/dL Magnesium 2.1 (1.6-2.6) mg/dL Total Bilirubin 0.4 (0.0-1.0) mg/dL Direct Bilirubin 0.1 (0.0-0.5) mg/dL AST 16 (5-31) U/L ALT 16 (0-31) U/L Alkaline Phosphatase 88 (39-117) U/L Troponin I High Sens < 2.7 (<3.5-17.0) ng/L Total Protein 7.3 (6.5-8.0) g/dL Albumin 3.8 (3.5-5.0) g/dL Lipase 24 (8-78) U/L Ethyl Alcohol < 10 mg/dL Independent Interpretation I performed an independent interpretation of an: EKG Interpretation: Rate: 71 Rhythm: NSR Holden: left Normal P waves. Normal ASUNCION. Normal QRS complex. ST T wave : nonspecific ST T wave changes anterior leads, no POORNIMA qTC: 534 prior studies: no acute ischemia, qtc longer than prior The study has been interpreted contemporaneously by me. EKG #2 Rate: 69 Rhythm: NSR Holden: left Normal P waves. Normal ASUNCION. Normal QRS complex. ST T wave : no POORNIMA, nonspecific ST T wave changes qTC: 360 prior studies: qtc improved no acute ischemia The study has been interpreted contemporaneously by me. . Independent Historian Clinical information obtained from an independent historian. History obtained from or confirmed by: EMS External Record Review External record reviewed: Inpatient record Social Determinants Patient?s care significantly limited by Social Determinants of Health including: Other Social Determinant of Health Critical Care Time Critical Care Time Critical Care Time: Yes Total Critical Care Time: 45 Attestation: IV magnesium, review of records, repeat EKG I attest to this time spent taking care of the patient Discharge Plan Discharge Clinical Impression: Generalized seizure Patient Disposition: Home, Self-Care Instructions: Recurrent Seizures in Adults (ED) Additional Instructions: labs reassuring today you need to take your seizure medications I will refill them today please take them as prescribed return for any worsening symptoms or concerns your qtc was slightly prolonged your doctor should monitor this with your methadone we gave you magnesium today to help last dose of methadone 155mg at [facility] on 05/18/24 Prescriptions: New levetiracetam [Keppra] 500 mg tablet 500 mg PO BID Qty: 60 2RF No Action gabapentin 100 mg capsule 100 mg PO TID Qty: 270 1RF atorvastatin 20 mg tablet 20 mg PO DAILY Qty: 90 1RF lisinopril 10 mg tablet 10 mg PO DAILY Qty: 90 1RF ropinirole 3 mg tablet 3 mg PO BEDTIME Qty: 90 0RF alprazolam 1 mg tablet 1 mg PO BID PRN (Reason: anxiety) Qty: 30 0RF aspirin 81 mg Tablet,Delayed Release (Dr/Ec) 81 mg PO DAILY methadone 10 mg/mL concentrate 155 mg PO DAILY Rx Instructions: [facility] citalopram 20 mg tablet 20 mg PO DAILY 90 Days Qty: 90 1RF Interventions: ED Discharge Assessment Last Done: 05/18/24 12:14 Discharge Date/Time: 05/18/24 12:14 Print Language: [place]
[2024-05-18 08:03] LABS: Alanine Aminotransferase 16 U/L (0-31); Albumin Level 3.8 g/dL (3.5-5.0); Alkaline Phosphatase 88 U/L (39-117); Anion Gap 11 (12-20); Aspartate Amino Transferase 16 U/L (5-31); Bilirubin Direct 0.1 mg/dL (0.0-0.5); Bilirubin Total 0.4 mg/dL (0.0-1.0); Blood Urea Nitrogen 9 mg/dL (9-16); Calcium 9.3 mg/dL (8.4-10.2); Carbon Dioxide 26 mmol/L (22-29); Chloride 108 mmol/L (96-108); Creatinine Clr Calc Pharmacy 67.8; Estimated Glomerular Filt Rate > 60; Ethanol < 10 mg/dL; Glucose Random 184 mg/dL (60-115); Lipase 24 U/L (8-78); Magnesium 2.1 mg/dL (1.6-2.6); Potassium 3.7 mmol/L (3.3-5.1); Sodium 141 mmol/L (135-145); Total Protein 7.3 g/dL (6.5-8.0)
[2024-05-18 08:09] LABS: Troponin-I High Sensitivity < 2.7 ng/L (<3.5-17.0)
[2024-05-18 09:42] VITALS: BP 134/68; PULSE 54; RESP 18; O2SAT 95
[2024-05-18] MEDS: Magnesium Sulfate/H2O 2 GM/50 ML PIGGYBACK IV (09:43)
--- NOTE | 2024-05-18 10:19 | ECG_ITS ---
Test Reason : RETAKE Blood Pressure : / mmHG Vent. Rate : 069 BPM Atrial Rate : 069 BPM P-R Int : 146 ms QRS Dur : 070 ms QT Int : 336 ms P-R-T Axes : 050 -08 047 degrees QTc Int : 360 ms Normal sinus rhythm Low voltage QRS Nonspecific ST and T wave abnormality Abnormal ECG When compared with ECG of 18-MAY-2024 07:29, QT has shortened Referred By: Yakelin Dye Electronically Signed By:CECILIA GAR
--- NOTE | 2024-05-18 10:21 | PC.NURSE ---
per MD Dye plan to obtain EKG after magnesium has completed in one hour
--- NOTE | 2024-05-18 10:25 | HE.PHANOTE ---
RE METHADONE Pharmacy has recieved patients methadone confirmation form. Patient is confirmed to be recieving methadone 155 mg from [facility], last doses 155 mg 05/17/24
[2024-05-18 11:11] VITALS: BP 150/74; PULSE 71; RESP 14; TEMP 36.6; O2SAT 96
[2024-05-18] MEDS: methADONE HCl 20 MG/2 ML ORAL.CONC 155 MG PO (11:46)
[2024-05-18 12:14] VITALS: BP 149/74; BP 150/74; PULSE 71; RESP 14; RESP 18; TEMP 36.6; O2SAT 96
== END 2024-05-18 12:14 | disposition home or self-care (01) ==
PROVIDERS: Emergency Provider Emergency Medicine; PCP Internal Medicine
DX: G40.409 Other generalized epilepsy and epileptic syndromes, not intractable, without status epilepticus (principal); I10 Essential (primary) hypertension; E78.00 Pure hypercholesterolemia, unspecified; Z86.73 Personal history of transient ischemic attack (TIA), and cerebral infarction without residual deficits
CPT/HCPCS: 36415; 80048; 80076; 80307; 83690; 83735; 84484; 85025; 93005; 96365; 96366; 96367; 96375; 99284; J1953; J2060; J3475

== ENCOUNTER 2024-09-28 09:55 | Outpatient (AMB) | payer MEDICARE, MEDICAID, SELFPAY ==
--- NOTE | 2024-09-28 10:24 | A.OFFPC_ITS ---
Vital Signs 09/28/24 10:26 Height 5 ft 2 in Weight 167 lb BMI 30.5 BP 138/70 Blood Pressure Location Lt brachial Position Sitting Pulse 85 Pulse Source Pulse Oximeter Temp 97 F Temp Source Skin Pulse Oximetry (%) 97 Oxygen Delivery Method Room Air Intake Visit Reasons: follow up Intake Note: Patient is here to follow up on HTN. 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 Accompanied by: Sister Allergies No Known Allergies Allergy (Mild, Verified 10/03/24 06:29) NOT APPLICABLE Medication List - Last Reconciled 10/03/24 by Adalberto Man MD alprazolam 1 mg PO BID PRN aspirin 81 mg PO DAILY atorvastatin 20 mg PO DAILY citalopram 20 mg PO DAILY 90 days gabapentin 100 mg PO TID levetiracetam (Keppra) 500 mg PO BID lisinopril 10 mg PO DAILY methadone 155 mg PO DAILY ropinirole 3 mg PO BEDTIME Tobacco use date assessed: 09/28/24 Dental Screening Dental Screen Date: 09/28/24 Did you have a dental visit in the last 12 months?: No Did you have a dental problem in the last 6 months where you did not have access to dental care?: No Was dental information given to patient?: No HPI follow up HPI Details 58-year-old female [facility]. She is accompanied by her sister. Patient reports that her anxiety symptoms, depression have worsened since the unexpected of her mother last month. She has been taking alprazolam up to 3 times a day. It has been only prescribed for twice a day. Patient is also taking methadone 55 mg once a day for substance use disorder. Patient lives alone and is independent. Her sister assists her with her cooking and meals. Continues to smoke large amount of tobacco. [facility] Medical History Hx of ectopic Elevated cholesterol Lab test negative for COVID-19 virus Drug abuse Seizure CVA (cerebral vascular accident) Positive colorectal cancer screening using Cologuard test Benign essential HTN Endogenous depression Surgical History H/O colonoscopy Hx of unilateral oophorectomy History of back surgery Family History Father Alive and well Mother Alive and well Social History Household Members: Family and Other Housing: House Do you presently have visiting nurse or other home services: No Alcohol intake: never Comment: seizure precations Patient Tobacco Use Status: Current everyday Tobacco user Tobacco use type: Cigarette Cigarette Packs Per Day: 0.5 Cigarettes Per Day: 6 Years Smoked: 30 e-Cigarette/Vaping Use: Never Used Second Hand Smoke Exposure: Yes Substance Use Type: Former Substance User service: No Current occupational status: disabled Cognitive needs: No Hearing needs: No Vision needs: No Questionnaire PHQ-9 Over the last 2 weeks, how often have you been bothered by any of the following problems? 1. Little interest or pleasure in doing things: not at all 2. Feeling down, depressed, or hopeless: not at all 3. Trouble falling or staying asleep, or sleeping too much: not at all 4. Feeling tired or having little energy: not at all 5. Poor appetite or overeating: not at all 6. Feeling bad about yourself - or that you are a failure or have let yourself or your family down: not at all 7. Trouble concentrating on things, such as reading the newspaper or watching television: not at all 8. Moving or speaking so slowly that other people could have noticed. Or the opposite - being so fidgety or restless that you have been moving around a lot more than usual: not at all 9. Thoughts that you would be better off or of hurting yourself in some way: not at all Total score: 0 Depression Screening Interpretation: Negative Depression Screening Done: Yes Source: Developed by Drs. Erik Rogers, Anaid Dietz, Ilan An and colleagues, with an educational tigist from [employer]. Thrive Questionnaire Date Thrive assessed: 09/28/24 I am a: Patient What is your living situation today?: I have a steady place to live Within the past 12 months, did the food you bought not last and you didn't have the money to get more?: Never true Within the past 12 months, did you worry whether your food would run out before you got money to buy more?: Never true Do you have trouble paying for medicines?: No Do you have trouble getting transportation to medical appointments?: No Do you have trouble paying your heating and electricity bill?: No Do you have trouble taking care of your child, family member or friend?: No Do you have trouble with day-to-day activities such as bathing, preparing meals, shopping, managing finances, etc.?: No Are you currently unemployed and looking for a job?: No Are you interested in more education?: No Please select the resources that you would like help with: None Currently or been in a relationship where the following occur: No concerns reported THRIVE Score: 0 AUDIT C Alcohol Use Questionnaire (AUDIT-C) 1. How often do you have a drink containing alcohol?: Never Total Score: 0 SHERI-7 AMB Questionnaire SHERI-7 Date SHERI - 7 assessed: 09/28/24 Feeling nervous, anxious, or on edge: 0 = Not at all Not being able to stop or control worryin = Not at all Worrying too much about different things: 0 = Not at all Trouble relaxin = Not at all Being so restless that it is hard to sit still: 0 = Not at all Becoming easily annoyed or irritable: 0 = Not at all Feeling afraid as if something awful might happen: 0 = Not at all Total SHERI-7 score (0-4 normal; 5-9 mild; 10-14 moderate; 15-21 severe): 0 Source: Developed by Drs. Erik Rogers, Anaid Dietz, Ilan An and colleagues, with an educational tigist from [employer]. Physical exam (Primary Care) Vital Signs: Last Vital Signs Temp 97 F 09/28/24 10:26 Pulse 85 09/28/24 10:26 BP 138/70 09/28/24 10:26 Pulse Ox 97 09/28/24 10:26 Oxygen Delivery Method Room Air 09/28/24 10:26 BMI result Body Mass Index 30.5 Tobacco/Smoking Status: Tobacco use Status Tobacco use date assessed 09/28/24 09/28/24 10:45 Patient Tobacco Use Status Current everyday Tobacco 09/28/24 10:45 Tobacco use type Cigarette 09/28/24 10:45 e-Cigarette/Vaping Use Never Used 09/28/24 10:45 PHQ-9: PHQ-9 Score PHQ-9: Total score 0 09/28/24 10:45 Depression Screening Interpretation: Negative Thrive Assessment: Date of Thrive Assessment Date Thrive assessed 09/28/24 09/28/24 10:45 Currently or been in a relationship where the following occur: No concerns reported Const General: cooperative and healthy appearing Nutritional Appearance: well nourished Orientation/consciousness: patient oriented x3 Limitations: no limitations HENMT Head: Yes normal to inspection Eyes General: appearance normal, both eyes and all related structures Neck Neck: Yes normal visual inspection Chest Chest palpation & inspection: normal palpation of entire chest wall Resp Effort & Inspection: normal respiratory effort Neuro General: patient oriented x3 Coding Level of Care Code Est Pt Level 4 (52832) Diagnoses Endogenous depression F33.2 Generalized anxiety disorder F41.1 Drug abuse F19.10 Assessment & Plan Assessment & Plan (1) Endogenous depression: Code(s): F33.2 - Major depressive disorder, recurrent severe without psychotic features Category: Medical Plan: From her physical exam and history, it is evident that her depression symptoms have gotten worse. Patient reports she does not have a therapist or a psych iatrist currently. An urgent consult with the [facility] has been requested. Patient was encouraged not to take the alprazolam more than the prescribed dosage. (2) Generalized anxiety disorder: Code(s): F41.1 - Generalized anxiety disorder Category: Medical Plan: As above (3) Drug abuse: Comment: past history-currently taking methadone Code(s): F19.10 - Other psychoactive substance abuse, uncomplicated Category: Medical Plan: Continue methadone as prescribed. Orders: Referrals Psychiatry Outpatient Consultation Service F19.10 - Other psychoactive substance abuse, uncomplicated, F33.2 - Major depressive disorder, recurrent severe without psychotic features, F41.1 - Generalized anxiety disorder Medications: Refilled alprazolam 1 mg PO BID PRN 30 tabs 0RF anxiety
[2024-09-28 10:26] VITALS: BP 138/70; PULSE 85; TEMP 36.1; O2SAT 97; BMI 30.5
--- OUTSIDE RECORDS SUMMARY | 2024-09-28 12:59 | XMS_ITS | Clinical Summary ---
Author Organization [facility] ity Address [address] [place] [address] Care Team Providers Care Vp Purchasing Name Role Phone Unavailable Primary Care Provider Unavailabl e Social History Tobacco Use Types Packs/Day Years Used Date Smoking Tobacco: Never Assessed Sex and Gender Information Value Date Recorded Sex Assigned at Not on file Gender Identity Not on file Sexual Orientation Not on file Plan of Treatment Health Maintenance Due Date Last Done Comments Breast Cancer Screening 1965 DTaP,Tdap,and Td Vaccines (1 - Tdap) 1984 Hepatitis B Vaccines (1 of 3 - 19+ 3-dose series) 1984 Cervical Cancer Screening: P ap Smear 1986 Zoster Vaccines (1 of 2) 10/31/2015 Colorectal Cancer Screening: Colonoscopy 08/02/2022 Depression Screening 08/02/2022 HIV Screening 08/02/2022 Hepatitis C Screening 08/02/2022 Social Influencers of Health Screening 08/02/2022 COVID-19 Vaccine (2023-2 5 season) 2024 Influenza Vaccine (#1) 2024 HIB Vaccines Aged Out No longer eligi ble based on patient's age to complete this topic HPV Vaccines Aged Out No longer eligi ble based on patient's age to complete this topic Hepatitis A Vaccines Aged Out No long er eligible based on patient's age to complete this topic IPV Vaccines Aged Out No longer eligi ble based on patient's age to complete this topic MMR Vaccines Aged Out No longer eligi ble based on patient's age to complete this topic Meningococcal ACWY Vaccine Aged Out N o longer eligible based on patient's age to complete this topic Pneumococcal Vaccine: Pediat rics (0 to 5 Years) and At-Risk Patients (6 to 64 Years) Aged Out No longer eligible b ased on patient's age to complete this topic RSV Immunization Patients Un chante 20 months Aged Out No longer eligible b ased on patient's age to complete this topic Varicella Vaccines Aged Out No longer eligible based on patient's age to complete this topic
== END 2024-09-28 11:32 | disposition home or self-care (01) ==
PROVIDERS: PCP Internal Medicine; Visit Provider Internal Medicine
DX: F33.2 Major depressive disorder, recurrent severe without psychotic features (principal); F41.1 Generalized anxiety disorder; F19.10 Other psychoactive substance abuse, uncomplicated

== ENCOUNTER → 2024-09-28 09:55 | Outpatient (BNVA) | payer MEDICARE, MEDICAID, SELFPAY | PROVIDERS: PCP Internal Medicine; Visit Provider Internal Medicine | DX: F33.2 Major depressive disorder, recurrent severe without psychotic features (principal); F41.1 Generalized anxiety disorder; F19.10 Other psychoactive substance abuse, uncomplicated | CPT/HCPCS: 96127; 99212 ==

== ENCOUNTER 2024-11-02 10:13 | Outpatient (AMB) | payer MEDICARE, MEDICAID, SELFPAY ==
--- NOTE | 2024-11-02 10:59 | A.OFFPSYCH_ITS ---
Intake Intake Visit Reasons: consultation Allergies No Known Allergies Allergy (Mild, Verified 10/03/24 06:29) NOT APPLICABLE Medication List - Last Reconciled 11/02/24 by Katiuska Julio APRN alprazolam 1 mg PO BID PRN aspirin 81 mg PO DAILY atorvastatin 20 mg PO DAILY citalopram 20 mg PO DAILY 90 days gabapentin 100 mg PO TID levetiracetam (Keppra) 500 mg PO BID lisinopril 10 mg PO DAILY methadone 155 mg PO DAILY ropinirole 3 mg PO BEDTIME HPI- Psychiatric Chief Complaint: consultation HPI Narrative: Pt is here with her sister. Pt referred by PCP due to depression and anxiety after her mother suddenly in July. Pt lived with mother and was home the day she . pt was very overwhelmed with the loss and still misses her. Her mother also helped take care of patient as the patient is very forgetful since her stroke in 2019. Pt has hx of seizure disorder as well which developed after the stroke. Pt has a histroy of GALILEO. pt states she develop addicition to opiates due to first strting oxycodone for pain relief; she is now on methaodne 55 mg daily from clinic associated with [facility]. Pts PHQ9= 19 and GAD7 = 6 . No SI or HI. Pt reports trouble falling asleep aat night and also reports very low appetite. She uses tobacco 6 cigarettes a day but denies any other drug use andno etoh use. Past Psychiatric History: denies psychiatry in past No IPLOC. oupt methadone treatment for many years. Subjective Subjective Subjective Medication Compliance: Yes Side effects from medications: No Review of Systems Medical Review of Systems: unchanged Mental Status Exam Mental Status Exam Patient Appearance: Well Grooomed and Appropriate Patient Orientation: Person, Place, Time and Situation Level of Consciousness: Awake and Appropriate Patient Behavior: Appropriate and Dependent Mood Description: Flat and Sad Affect Description: Flat and Sad Patient Cognition Impaired: No Ability to Follow Directions: Fair Speech Pattern: Cofabulation and Delayed Memory Description: Remote Impaired, Episodic Impaired and Recent Impaired Hallucinations: None Delusions: Not Present Thought Process: Distracted Thought Content: positive for Arley Judgement: Fair Assessment and Plan Assessment & Plan (1) Major depressive disorder, single episode with anxious distress: Status: Acute Code(s): F32.9 - Major depressive disorder, single episode, unspecified Plan start remeron 15 mg at bedtime continue xanax 1 mg bid drinkplenty of fluids may taper xab=nax in 4-8 weeks slowly by 25% dose every month until off as tolerated Medications: New mirtazapine (Remeron) 15 mg PO BEDTIME 30 tabs 2RF Refilled alprazolam 1 mg PO BID PRN 28 tabs 2RF anxiety Discontinued gabapentin Discontinued Reason: Patient no longer taking 100 mg PO TID 270 caps 1RF Counseling and coordination of Care Pt. Self Management counseling: Maintenance-social rhythm, Mod caffeine/ETOH intake, Sleep hygiene, General coping skills and Problem solving Medication management counseling: Effectiveness, Side effects, Dosing range, Du ration, Drug interaction and Adherence Details-Med Mgmt counseling: reviewed education re: meds benefits vs risks and possible side effects with patient and her sister Diagnosis and Prognosis Counseling: Accuracy of diagnosis, Prognosis over time, Impact of diagnosis on life functions, Impact of family relationship, Problem atic behaviors secondary to diagnosis and Adequacy of current interventions Details: I spent 40 minutes reviewing the record, seeing the patient and documenting in the medical record. Counseling provided to the patient/caregiver as outlined below. Addressed patient/caregiver concerns regarding current medication regime including effective adherence. Addressed patient/caregiver concerns regarding diagnosis and prognosis including accuracy of diagnosis, prognosis over time, impact of diagnosis. Addressed patient/caregiver concerns regarding impact of recent stressors. [facility] Medical History Hx of ectopic Elevated cholesterol Lab test negative for COVID-19 virus Drug abuse Seizure CVA (cerebral vascular accident) Positive colorectal cancer screening using Cologuard test Benign essential HTN Endogenous depression Surgical History H/O colonoscopy Hx of unilateral oophorectomy History of back surgery Family History Father Alive and well Mother Alive and well Social History Household Members: Family and Other Housing: House Do you presently have visiting nurse or other home services: No Alcohol intake: never Comment: seizure precations Patient Tobacco Use Status: Current everyday Tobacco user Tobacco use type: Cigarette Cigarette Packs Per Day: 0.5 Cigarettes Per Day: 6 Years Smoked: 30 e-Cigarette/Vaping Use: Never Used Second Hand Smoke Exposure: Yes Substance Use Type: Former Substance User service: No Current occupational status: disabled Cognitive needs: No Hearing needs: No Vision needs: No Social History: lives alone; loss of mother from sudden July 2024 Substance History: opiates includin heroin; now on methadone 55 mg daily Trauma History: loss of mother Coding Level of Care Code Psych Diag Eval w/Med (33863) Diagnoses Major depressive disorder, single episode with anxious distress F32.9
--- OUTSIDE RECORDS SUMMARY | 2024-11-02 12:04 | XMS_ITS | Clinical Summary ---
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 Name Role Phone Unavailable Primary Care Provider Unavailabl e Social History Tobacco Use Types Packs/Day Years Used Date Smoking Tobacco: Never Assessed Comments Unknown Sex and Gender Information Value Date Recorded Sex Assigned at Not on file Legal Sex Female 6:30 AM EST Gender Identity Not on file Sexual Orientation Not on file Plan of Treatment Health Maintenance Due Date Last Done Comments Breast Cancer Screening 1965 DTaP,Tdap,and Td Vaccines (1 - Tdap) 1984 Hepatitis B Vaccines (1 of 3 - 19+ 3-dose series) 1984 Cervical Cancer Screening: P ap Smear 1986 Pneumococcal Vaccine: 50+ Ye ars (1 of 1 - PCV) 10/31/2015 Zoster Vaccines (1 of 2) 10/31/2015 Colorectal Cancer Screening: Colonoscopy 08/02/2022 Depression Screening 08/02/2022 HIV Screening 08/02/2022 Hepatitis C Screening 08/02/2022 Social Influencers of Health Screening 08/02/2022 COVID-19 Vaccine ( - 2023-2 5 season) 2024 Influenza Vaccine (#1) 2024 [...] patient's age to complete this topic Meningococcal B Vacine Aged Out No lo nger eligible based on patient's age to complete [...]
== END 2024-11-02 11:47 | disposition home or self-care (01) ==
LOC: HO.HOP 10:13
PROVIDERS: PCP Internal Medicine; Visit Provider Clinical Nurse Specialist Psychiatric/Mental Health
DX: F32.9 Major depressive disorder, single episode, unspecified (principal)
CPT/HCPCS: 90792

== ENCOUNTER → 2024-11-02 10:13 | Outpatient (BNVA) | payer MEDICARE, MEDICAID, SELFPAY | PROVIDERS: PCP Internal Medicine; Visit Provider Clinical Nurse Specialist Psychiatric/Mental Health | DX: F32.9 Major depressive disorder, single episode, unspecified (principal); Z71.89 Other specified counseling | CPT/HCPCS: 90792 ==

== ENCOUNTER 2024-11-09 09:12 | Outpatient (AMB) | payer MEDICARE, MEDICAID, SELFPAY ==
--- NOTE | 2024-11-09 09:22 | A.OFFPC_ITS ---
Vital Signs 11/09/24 09:23 Height 5 ft 2 in Weight 170 lb BMI 31.1 BP 132/80 Blood Pressure Location Lt brachial Position Sitting Pulse 76 Pulse Source Pulse Oximeter Pulse Oximetry (%) 96 Oxygen Delivery Method Room Air Intake Visit Reasons: follow up House Superintendent Required: No Accompanied by: Sister Allergies No Known Allergies Allergy (Mild, Verified 11/09/24 09:50) NOT APPLICABLE Medication List - Last Reconciled 11/09/24 by Yamila Dai PA-C alprazolam 0.5 mg PO DAILY PRN aspirin 81 mg PO DAILY atorvastatin 20 mg PO DAILY citalopram 20 mg PO DAILY 90 days levetiracetam (Keppra) 500 mg PO BID lisinopril 10 mg PO DAILY methadone 155 mg PO DAILY mirtazapine (Remeron) 15 mg PO BEDTIME ropinirole 3 mg PO BEDTIME Tobacco use date assessed: 09/28/24 Dental Screening Dental Screen Date: 09/28/24 [facility] Medical History (Updated 11/09/24 @ 09:59 by Yamila Dai PA-C) Fall Hx of ectopic Elevated cholesterol Lab test negative for COVID-19 virus Drug abuse Seizure CVA (cerebral vascular accident) Positive colorectal cancer screening using Cologuard test Benign essential HTN Endogenous depression Surgical History H/O colonoscopy Hx of unilateral oophorectomy History of back surgery Family History Father Alive and well Mother Alive and well Social History Household Members: Family and Other Housing: House Do you presently have visiting nurse or other home services: No Alcohol intake: never Comment: seizure precations Patient Tobacco Use Status: Current everyday Tobacco user Tobacco use type: Cigarette Cigarette Packs Per Day: 0.5 Cigarettes Per Day: 6 Years Smoked: 30 e-Cigarette/Vaping Use: Never Used Second Hand Smoke Exposure: Yes Substance Use Type: Former Substance User service: No Current occupational status: disabled Cognitive needs: No Hearing needs: No Vision needs: No Questionnaire PHQ-9 Over the last 2 weeks, how often have you been bothered by any of the following problems? 1. Little interest or pleasure in doing things: not at all 2. Feeling down, depressed, or hopeless: not at all 3. Trouble falling or staying asleep, or sleeping too much: not at all 4. Feeling tired or having little energy: not at all 5. Poor appetite or overeating: not at all 6. Feeling bad about yourself - or that you are a failure or have let yourself or your family down: not at all 7. Trouble concentrating on things, such as reading the newspaper or watching television: not at all 8. Moving or speaking so slowly that other people could have noticed. Or the opposite - being so fidgety or restless that you have been moving around a lot more than usual: not at all 9. Thoughts that you would be better off or of hurting yourself in some way: not at all Total score: 0 Depression Screening Interpretation: Negative Depression Screening Done: Yes 16030 - PHQ-9 Billing: Yes Source: Developed by Drs. Erik Rogers, Anaid Dietz, Ilan An and colleagues, with an educational tigist from [employer]. Thrive Questionnaire Date Thrive assessed: 09/28/24 I am a: Patient What is your living situation today?: I have a steady place to live Within the past 12 months, did the food you bought not last and you didn't have the money to get more?: Never true Within the past 12 months, did you worry whether your food would run out before you got money to buy more?: Never true Do you have trouble paying for medicines?: No Do you have trouble getting transportation to medical appointments?: No Do you have trouble paying your heating and electricity bill?: No Do you have trouble taking care of your child, family member or friend?: No Do you have trouble with day-to-day activities such as bathing, preparing meals, shopping, managing finances, etc.?: No Are you currently unemployed and looking for a job?: No Are you interested in more education?: No Please select the resources that you would like help with: None Currently or been in a relationship where the following occur: No concerns reported THRIVE Score: 0 AUDIT C Alcohol Use Questionnaire (AUDIT-C) 1. How often do you have a drink containing alcohol?: Never Total Score: 0 Score Reviewed/Action Taken: No SHERI-7 AMB Questionnaire SHERI-7 Date SHERI - 7 assessed: 11/09/24 Feeling nervous, anxious, or on edge: 0 = Not at all Not being able to stop or control worryin = Not at all Worrying too much about different things: 0 = Not at all Trouble relaxin = Not at all Being so restless that it is hard to sit still: 0 = Not at all Becoming easily annoyed or irritable: 0 = Not at all Feeling afraid as if something awful might happen: 0 = Not at all Total SHERI-7 score (0-4 normal; 5-9 mild; 10-14 moderate; 15-21 severe): 0 Source: Developed by Drs. Erik Rogers, Anaid Dietz, Ilan An and colleagues, with an educational tigist from [employer]. SHERI-7 Assessment Billing SHERI-7 Assessment Tool: SHERI-7 Assessment 41552 Physical exam (Primary Care) Vital Signs: Last Vital Signs Pulse 76 11/09/24 09:23 BP 132/80 11/09/24 09:23 Pulse Ox 96 11/09/24 09:23 Oxygen Delivery Method Room Air 11/09/24 09:23 Care Plan Goal for BP management: <130/80 at goal BMI result Body Mass Index 31.1 BMI Assessment/Plan discussion: High BMI High, discussed plan: lifestyle, weight reduction, dietary, physical activity and alcohol moderation Tobacco/Smoking Status: Tobacco use Status Tobacco use date assessed 09/28/24 11/09/24 09:28 Patient Tobacco Use Status Current everyday Tobacco 11/09/24 09:28 Tobacco use type Cigarette 11/09/24 09:28 e-Cigarette/Vaping Use Never Used 11/09/24 09:28 PHQ-9: PHQ-9 Score PHQ-9: Total score 0 11/09/24 09:28 Depression Screening Interpretation: Negative Thrive Assessment: Date of Thrive Assessment Date Thrive assessed 09/28/24 11/09/24 09:28 Currently or been in a relationship where the following occur: No concerns reported Coding Level of Care Code Est Pt Level 4 (91389) Complex EM visit Add On G2211 Diagnoses Major depressive disorder, single episode with anxious distress F32.9 Obesity (BMI 30.0-34.9) E66.9 Drug abuse F19.10 CVA (cerebral vascular accident) I63.9 Benign essential HTN I10 Generalized anxiety disorder F41.1 Seizure R56.9 Elevated cholesterol E78.00 Endogenous depression F33.2 Fall W19.XXXA Additional Codes PHQ-9 - 33891 - PHQ-9 Billing: Yes ([id number]) SHERI-7 Assessment Billing - SHERI-7 Assessment Tool: SHERI-7 Assessment 37575 ([id number]) Assessment & Plan Assessment & Plan (1) Major depressive disorder, single episode with anxious distress: Code(s): F32.9 - Major depressive disorder, single episode, unspecified Category: Medical Plan: In light of her recent bereavement and ongoing depression, the patient has started Remeron (Mirtazapine) at 15 mg nightly, which has improved her appetite. I advised continued engagement with her therapist to further manage her depressive symptoms. The patient accepted this approach. (2) Obesity (BMI 30.0-34.9): Code(s): E66.9 - Obesity, unspecified Category: Medical Plan: patient to improve her diet and exercise regimen. Condition is chronic and stable continue to monitor. (3) Drug abuse: Comment: past history-currently taking methadone Code(s): F19.10 - Other psychoactive substance abuse, uncomplicated Category: Medical Plan: Patient to continue methadone 55 mg daily. Condition is chronic and stable continue to monitor. (4) CVA (cerebral vascular accident): Comment: 03/2019-residual right arm weakness Code(s): I63.9 - Cerebral infarction, unspecified Category: Medical Plan: Patient to continue aspirin 81 mg daily, atorvastatin 20 mg daily, lisinopril 10 mg daily. Condition is chronic and stable continue to monitor. (5) Benign essential HTN: Code(s): I10 - Essential (primary) hypertension Category: Medical Plan: Patient to continue lisinopril 10 mg daily. Condition is chronic and stable continue to monitor (6) Generalized anxiety disorder: Code(s): F41.1 - Generalized anxiety disorder Category: Medical Plan: patient to continue the Remeron she just started this week 15 mg at bedtime. Patient to continue citalopram 20 mg daily. Patient alprazolam will be decreased from 1 mg b.i.d. to 0.5 mg daily/ p.r.n.. Condition is chronic and stable continue to monitor. (7) Seizure: Comment: X2-once post CVA and once 07/2020-hospitalized at [facility] Code(s): R56.9 - Unspecified convulsions Category: Medical Plan: Patient to continue Keppra 500 mg p.o. b.i.d.. Condition is chronic and stable continue to monitor. (8) Elevated cholesterol: Code(s): E78.00 - Pure hypercholesterolemia, unspecified Category: Medical Plan: Patient to continue atorvastatin 20 mg daily. Condition is chronic and stable continue to monitor. 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 Patient to continue citalopram 20 mg daily. Patient alprazolam will be decreased from 1 mg b.i.d. to 0.5 mg daily/ p.r.n.. Condition is chronic and stable continue to monitor. (10) Fall: Code(s): W19.XXXA - Unspecified fall, initial encounter Category: Medical Plan: Patient with recent mechanical fall she slipped on ice impacted her chin and sustained a superficial laceration. Laceration is healing well. No complications no signs of infection will continue to monitor. Plan Plan Patient was informed and verbally consented to the use of an ambient scribe for clinic note documentation during this visit. 1. Seizure Disorder Ongoing seizure management was confirmed, and the patient experiences leg pain managed with Ropinirol. Her therapy will continue to be monitored. Follow-up will provide an opportunity to address the efficacy and requirements of her current seizure treatment. 2. Major Depressive Disorder In light of her recent bereavement and ongoing depression, the patient has started Remeron (Mirtazapine) at 15 mg nightly, which has improved her appetite. I advised continued engagement with her therapist to further manage her depressive symptoms. The patient accepted this approach. 3. Elevated Cholesterol The patient's elevated cholesterol level is under monitoring, with regular treatment and management practices to be evaluated during follow-up visits or as required. 4. Recent Fall With Minor chin injury The patient's fall on ice led to a minor chin injury; this was self-managed with antiseptic cleaning and butterfly stitches. Recovery seems appropriate, with the wound beginning to close. She reported no loss of consciousness or subsequent falls. 5. Leg Pain The patient experiences leg pain, managed with Ropinirol, which appears to be effective. She reports no new or worsening symptoms. Continual monitoring and management of leg pain will be maintained, with further evaluation at the next appointment. 6. Memory Loss Secondary To Alprazolam Memory loss associated with Alprazolam usage was discussed with the patient and her sister. They agreed to a gradual reduction of Alprazolam, beginning with a reduction to 0.5 mg daily to start today, to mitigate potential withdrawal symptoms. Regular follow-up will assess her response to this adjustment, and she was advised to contact us should any significant changes occur. 7. Essential Hypertension Continuation of the current antihypertensive regimen except on weekends. I recommended the patient continue current management of 55 mg methadone daily. Discussion Notes During the visit, we discussed the patient's chronic medical conditions, including essential hypertension, seizures, and major depressive disorder, within the context of her recent bereavement. The initiation of Remeron (Mirtazapine) 15 mg at night for depression and associated symptoms was confirmed, along with the continuation of Ropinirol for leg pain and alprazolam for anxiety. Given the associated risk of memory loss with long-term use of Alprazolam, I recommended starting to wean her off the medication to mitigate potential adverse effects on cognitive functions. Starting the taper today was decided upon, with a further reduction planned two months after that. The patient and her sister agreed with this approach. We discussed that the gradual reduction of Alprazolam was essential to avoid withdrawal symptoms. The patient was instructed to monitor for any significant changes and to contact the clinic if necessary. Regular use of Remeron is advised to manage depression and support memory improvement. Medications: Discontinued alprazolam Discontinued Reason: Doctor's Order 1 mg PO BID PRN 28 tabs 2RF anxiety Patient Instructions: Patient Instructions - Continue taking all current medications as discussed, including Remeron 15 mg at bedtime, Ropinirol for leg pain daily. - Begin the process of gradually reducing alprazolam to 0.5 mg daily starttoday, following up with me or Dr. Jean for ongoing management. - Monitor and report any significant changes in symptoms or new side effects as soon as possible. - Continue attending therapy sessions regularly to support emotional well-being. - No additional medications or refills are needed at this time. - Continue with daily administration of methadone 55 mg. - No additional medical equipment needed at home at present. - Return for a follow-up visit in two months to assess progress and adjust medications as necessary. - Ensure there is an adequate supply of Remeron at home; it should have been filled with two refills available. Contact the clinic for an earlier appointment if concerns or significant changes arise. Scribe Plan - Not visible on output: History of Present Illness The patient is a 59-year-old female presenting for a follow-up visit regarding her chronic medical conditions. Her medical history includes elevated cholesterol, managed previously, ongoing seizures, a history of cerebrovascular accident, essential hypertension, for which she is taking medications daily, major depressive disorder, and leg pain. The patient recently experienced a fall on the ice but did not seek immediate medical attention. She treated her resulting chin wound with butterfly stitches at home. Social History - Recently experienced the passing of her mother, which has impacted her emotional well-being. - Reports that her sister, who is also her caregiver, assists in daily living activities and visits regularly. - Under the care of a psychiatrist and a therapist. - Currently using Remeron (Mirtazapine) initiated a week prior to the visit. - Takes Ropinirol for leg pain and Alprazolam for anxiety, with concerns about its necessity from her sister. Review of Systems - Appears to have improved appetite since starting Remeron. - Described sleep pattern as four to five hours per night. although takes naps during the day frequently. - No reported issues with leg swelling. - Denies loss of consciousness during recent fall. Physical Exam Appearance: Alert. Oriented. No acute distress. Head: Normal external exam. Normocephalic. Atraumatic. Eyes: Pupils are equal, round, and reactive to light. Extraocular movements intact. Conjunctiva and sclera normal. Eyelids normal. Ears: External auditory canal normal. Tympanic membranes normal. Throat: Pharynx normal. Uvula midline. Moist mucous membranes. Neck: Normal inspection. Neck supple. Full range of motion. Cardiovascular: Normal heart rate and rhythm. Heart sound normal. No murmurs noted. Pulses normal throughout. Respiratory: No respiratory distress. Painless inspiration. Breath sounds normal. No wheezes/rales/rhonchi noted. Chest nontender. No accessory muscle usage noted or decreased air movement noted. Abdomen: Soft and nontender. No distention noted. No organomegaly noted. Back: Full range of motion noted. Skin: Skin warm and dry. Normal skin color. Normal skin turgor. to the patient's chin she has a well-healing laceration with scab overlying. There is no signs of infection. No additional rashes/lesions/lacerations noted. Extremities: No lower extremity edema. Extremities exhibit normal range of motion. Extremities nontender. Neuro: Oriented. Normal steady gait.
[2024-11-09 09:23] VITALS: BP 132/80; PULSE 76; O2SAT 96; BMI 31.1
--- OUTSIDE RECORDS SUMMARY | 2024-11-09 10:37 | XMS_ITS | Clinical Summary ---
Author Organization [facility] ity Address [address] [place] [address] Care Team Providers Care Cat Skinner Name Role Phone Unavailable Primary Care Provider [...]
== END 2024-11-09 09:46 | disposition home or self-care (01) ==
LOC: HO.HMCH 09:12
PROVIDERS: PCP Internal Medicine; Visit Provider Physician Assistant Medical
DX: R56.9 Unspecified convulsions (principal); F19.10 Other psychoactive substance abuse, uncomplicated; I69.351 Hemiplegia and hemiparesis following cerebral infarction affecting right dominant side; F33.2 Major depressive disorder, recurrent severe without psychotic features; F32.9 Major depressive disorder, single episode, unspecified; E66.9 Obesity, unspecified; Z68.31 Body mass index [BMI] 31.0-31.9, adult; I10 Essential (primary) hypertension; F41.1 Generalized anxiety disorder; E78.00 Pure hypercholesterolemia, unspecified; W19.XXXA Unspecified fall, initial encounter

== ENCOUNTER → 2024-11-09 09:12 | Outpatient (BNVA) | payer MEDICARE, MEDICAID, SELFPAY | PROVIDERS: PCP Internal Medicine; Visit Provider Physician Assistant Medical | DX: F32.9 Major depressive disorder, single episode, unspecified (principal); E66.9 Obesity, unspecified; F19.10 Other psychoactive substance abuse, uncomplicated; I63.9 Cerebral infarction, unspecified; I10 Essential (primary) hypertension; F41.1 Generalized anxiety disorder; E78.00 Pure hypercholesterolemia, unspecified; R56.9 Unspecified convulsions | CPT/HCPCS: 96127; 99212 ==

== ENCOUNTER 2025-01-11 09:52 | Outpatient (AMB) | payer MEDICARE, MEDICAID, SELFPAY ==
[2025-01-11 09:58] VITALS: BP 138/88; PULSE 66; TEMP 36.3; O2SAT 96; BMI 28.7
--- NOTE | 2025-01-11 09:58 | MHC.PC.OV ---
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 Accompanied by: Sister Allergies No Known Allergies Allergy (Mild, Verified 01/11/25 10:21) NOT APPLICABLE Medication List - Last Reconciled 01/11/25 by Yamila Dai PA-C alprazolam 0.5 mg PO BID PRN 2 weeks aspirin 81 mg PO DAILY atorvastatin 20 mg PO DAILY citalopram 20 mg PO DAILY 90 days levetiracetam (Keppra) 500 mg PO BID lisinopril 10 mg PO DAILY methadone 155 mg PO DAILY mirtazapine (Remeron) 15 mg PO BEDTIME ropinirole 3 mg PO BEDTIME Tobacco use date assessed: 09/28/24 Dental Screening Dental Screen Date: 01/11/25 Did you have a dental visit in the last 12 months?: Yes Did you have a dental problem in the last 6 months where you did not have access to dental care?: No Was dental information given to patient?: Patient has dentist HPI f/u HPI Details The patient is a 59-year-old female who presents for a follow-up visit, primarily concerning her essential hypertension and ongoing management of anxiety disorder with alprazolam dosage reduction. Her blood pressure readings were slightly elevated today, which will be closely monitored. She is in the process of tapering her alprazolam dosage from an initial four times daily down to twice daily. This reduction strategy has succeeded so far without any adverse effects, and she has reported an increase in alertness and improved memory. Notably, she has experienced no emergent psychological symptoms such as hallucinations or significant confusion during this reduction. Her chronic condition management includes Keppra for epilepsy, without any recent seizure activity reported. The discussion also encompassed her other medications for hyperlipidemia, hypertension, and depression. Blood work requisition is planned for April, including metabolic panels and a mammogram. Appearing well-groomed and mentally sharp, the patient is maintaining her health regimen effectively with minimal complaints. Social History - Reports no falls, planned travel, or issues with mobility. - Compliance with a medication regimen, involving alprazolam reduction. - The patient is alert and exhibits improved cognitive function. [facility] Medical History Fall Hx of ectopic Elevated cholesterol Lab test negative for COVID-19 virus Drug abuse Seizure CVA (cerebral vascular accident) Positive colorectal cancer screening using Cologuard test Benign essential HTN Endogenous depression Surgical History H/O colonoscopy (~10/13/20) Hx of unilateral oophorectomy History of back surgery Family History Father Alive and well Mother Alive and well Social History Household Members: Family and Other Housing: House Do you presently have visiting nurse or other home services: No Alcohol intake: never Comment: seizure precations Patient Tobacco Use Status: Current everyday Tobacco user Tobacco use type: Cigarette Cigarette Packs Per Day: 0.5 Cigarettes Per Day: 6 Years Smoked: 30 e-Cigarette/Vaping Use: Never Used Second Hand Smoke Exposure: Yes Substance Use Type: Former Substance User service: No Current occupational status: disabled Cognitive needs: No Hearing needs: No Vision needs: No Questionnaire PHQ-9 Over the last 2 weeks, how often have you been bothered by any of the following problems? 1. Little interest or pleasure in doing things: not at all 2. Feeling down, depressed, or hopeless: not at all 3. Trouble falling or staying asleep, or sleeping too much: several days 4. Feeling tired or having little energy: not at all 5. Poor appetite or overeating: not at all 6. Feeling bad about yourself - or that you are a failure or have let yourself or your family down: not at all 7. Trouble concentrating on things, such as reading the newspaper or watching television: not at all 8. Moving or speaking so slowly that other people could have noticed. Or the opposite - being so fidgety or restless that you have been moving around a lot more than usual: not at all 9. Thoughts that you would be better off or of hurting yourself in some way: not at all Total score: 1 Depression Screening Interpretation: Negative Depression Screening Done: Yes 77836 - PHQ-9 Billing: Yes Source: Developed by Drs. Erik Rogers, Anaid Dietz, Ilan An and colleagues, with an educational tigist from [employer]. Thrive Questionnaire Date Thrive assessed: 09/28/24 I am a: Patient What is your living situation today?: I have a steady place to live Within the past 12 months, did the food you bought not last and you didn't have the money to get more?: Never true Within the past 12 months, did you worry whether your food would run out before you got money to buy more?: Never true Do you have trouble paying for medicines?: No Do you have trouble getting transportation to medical appointments?: No Do you have trouble paying your heating and electricity bill?: No Do you have trouble taking care of your child, family member or friend?: No Do you have trouble with day-to-day activities such as bathing, preparing meals, shopping, managing finances, etc.?: No Are you currently unemployed and looking for a job?: No Are you interested in more education?: No Please select the resources that you would like help with: None Currently or been in a relationship where the following occur: No concerns reported THRIVE Score: 0 AUDIT C Alcohol Use Questionnaire (AUDIT-C) 1. How often do you have a drink containing alcohol?: Never Total Score: 0 Score Reviewed/Action Taken: No SHERI-7 AMB Questionnaire SHERI-7 Date SHERI - 7 assessed: 11/09/24 Feeling nervous, anxious, or on edge: 0 = Not at all Not being able to stop or control worryin = Not at all Worrying too much about different things: 0 = Not at all Trouble relaxin = Several days Being so restless that it is hard to sit still: 1 = Several days Becoming easily annoyed or irritable: 1 = Several days Feeling afraid as if something awful might happen: 0 = Not at all Total SHERI-7 score (0-4 normal; 5-9 mild; 10-14 moderate; 15-21 severe): 3 Source: Developed by Drs. Erik Rogers, Ilan Talley and colleagues, with an educational tigist from [employer]. SHERI-7 Assessment Billing SHERI-7 Assessment Tool: SHERI-7 Assessment 98757 Review of Systems Const Details: - Cardiovascular: Reports elevated sightly blood pressure today. - Neurological: Denies any recent seizures. - Psychiatric: Denies hallucinations, confusion, and significant mood disturbances. - Musculoskeletal: Denies recent falls; mobility appears stable. Physical exam (Primary Care) Vital Signs: Last Vital Signs Temp 97.3 F 01/11/25 09:58 Pulse 66 01/11/25 09:58 BP 158/88 H 01/11/25 09:58 Pulse Ox 96 01/11/25 09:58 Oxygen Delivery Method Room Air 01/11/25 09:58 Care Plan Goal for BP management: <130/90 at Goal BMI result Body Mass Index 28.7 BMI Assessment/Plan discussion: High BMI High, discussed plan: lifestyle, weight reduction, dietary, physical activity and alcohol moderation Tobacco/Smoking Status: Tobacco use Status Tobacco use date assessed 09/28/24 01/11/25 10:03 Patient Tobacco Use Status Current everyday Tobacco 01/11/25 10:03 Tobacco use type Cigarette 01/11/25 10:03 e-Cigarette/Vaping Use Never Used 01/11/25 10:03 PHQ-9: PHQ-9 Score PHQ-9: Total score 1 01/11/25 10:03 Depression Screening Interpretation: Negative Thrive Assessment: Date of Thrive Assessment Date Thrive assessed 09/28/24 01/11/25 10:03 Currently or been in a relationship where the following occur: No concerns reported Const Other: Appearance: Alert. Oriented X3. No acute distress. Head: Normal external exam. Normocephalic. Atraumatic. Eyes: Pupils are equal, round, and reactive to light. Extraocular movements intact. Conjunctiva and sclera normal. Eyelids normal. Ears: External auditory canal normal. Tympanic membranes normal. Neck: Normal inspection. Neck supple. Full range of motion. Cardiovascular: Normal heart rate and rhythm. Heart sound normal. No murmurs noted. Pulses normal throughout. Respiratory: No respiratory distress. Painless inspiration. Breath sounds normal. No wheezes/rales/rhonchi noted. Chest nontender. No accessory muscle usage noted or decreased air movement noted. Abdomen: Soft and nontender. Back: No costovertebral angle tenderness. Full range of motion noted. Skin: Skin warm and dry. Normal skin color. Normal skin turgor. No rashes/lesions/lacerations noted. Extremities: No lower extremity edema. Extremities exhibit normal range of motion. Extremities nontender. Neuro: Oriented X 3. No motor deficit. No sensory deficit. Reflexes normal. Results Reviewed Results Reviewed: - Labs scheduled include CBC, basic metabolic panel, lipid panel, thyroid function tests, and urinalysis. - Imaging: Upcoming mammogram appointment has not been scheduled yet. Coding Level of Care Code Est Pt Level 4 (07675) Complex EM visit Add On G2211 Diagnoses Seizure R56.9 Benign essential HTN I10 Drug abuse F19.10 CVA (cerebral vascular accident) I63.9 Generalized anxiety disorder F41.1 Additional Codes PHQ-9 - 50220 - PHQ-9 Billing: Yes ([id number]) SHERI-7 Assessment Billing - SHERI-7 Assessment Tool: SHERI-7 Assessment 78186 ([id number]) Assessment & Plan Assessment & Plan (1) Seizure: Comment: X2-once post CVA and once 07/2020-hospitalized at [facility] Code(s): R56.9 - Unspecified convulsions Category: Medical Plan: Seizure-free on the current regimen of Keppra with no current changes to treatment. Condition is chronic and stable will continue to monitor. (2) Benign essential HTN: Code(s): I10 - Essential (primary) hypertension Category: Medical Plan: Blood pressure slightly elevated with a plan to recheck and continue treatment with lisinopril. Monitor adaptations in renal function and potentially adjust dosage based on future findings. Condition is chronic and stable continue to monitor. (3) Drug abuse: Comment: past history-currently taking methadone Code(s): F19.10 - Other psychoactive substance abuse, uncomplicated Category: Medical Plan: Patient to continue methadone 155 mg daily. Condition is chronic and stable continue to monitor. (4) CVA (cerebral vascular accident): Comment: 03/2019-residual right arm weakness Code(s): I63.9 - Cerebral infarction, unspecified Category: Medical Plan: Patient to continue aspirin 81 mg, atorvastatin 20 mg, lisinopril 10 mg. Patient denies any new neuro symptoms is at baseline. Condition is chronic and stable will continue to monitor. (5) Generalized anxiety disorder: Code(s): F41.1 - Generalized anxiety disorder Category: Medical Plan: Progressive alprazolam reduction from four doses to two daily, with the next step aiming for one daily, to minimize dependency without adverse effects. Condition is chronic and stable continue to monitor. Plan Plan Patient was informed and verbally consented to the use of an ambient scribe for clinic note documentation during this visit. 1. Essential Hypertension Blood pressure slightly elevated with a plan to recheck and continue treatment with lisinopril. Monitor adaptations in renal function and potentially adjust dosage based on future findings. 2. Anxiety Disorder Progressive alprazolam reduction from four doses to two daily, with the next step aiming for one daily, to minimize dependency without adverse effects. 3. Epilepsy Seizure-free on the current regimen of Keppra with no current changes to treatment. 4. Hyperlipidemia Maintenance with atorvastatin supported by scheduled lipid panel in April. During today's visit, I reviewed the patient's progress in reducing the dosage of alprazolam for anxiety disorder, noting improved alertness and no adverse effects. We discussed continuing lisinopril for essential hypertension, with recommendations to monitor and recheck the patient's blood pressure. I emphasized the importance of adhering to current seizure control with Keppra and encouraged routine follow-up blood work, scheduled for later this year, to assess her overall metabolic health and support comprehensive chronic disease management. Specific instructions were provided to eventually reduce alprazolam to one tablet daily to minimize dependency further. I also highlighted the importance of attending her upcoming blood work and mammogram appointments as a preventive measure. Orders: Orders TSH reflex Free T4 Today Z00.00 - Encounter for general adult medical examination without abnormal findings Vitamin D 25-OH Total Today Z00.00 - Encounter for general adult medical examination without abnormal findings Hemoglobin A1c Today Z00.00 - Encounter for general adult medical examination without abnormal findings Vitamin B12 and Folate Today Z00.00 - Encounter for general adult medical examination without abnormal findings Medications: Changed From alprazolam 0.5 mg PO TID PRN 42 tabs 2RF anxiety To alprazolam 0.5 mg PO BID 2 weeks PRN 14 tabs 2RF anxiety Refilled alprazolam 0.5 mg PO BID 2 weeks PRN 28 tabs 2RF anxiety Patient Instructions: - Continue taking prescribed medications, including Keppra, lisinopril, atorvastatin, citalopram, and other listed drugs. - Gradually reduce alprazolam to one tablet daily as planned. - Schedule blood work and mammogram appointments. - Monitor blood pressure regularly and report any significant changes. - Maintain regular follow-up visits, the next one set for three months, with accompanying blood work. - Seek medical care or call the clinic if you experience any new or worsening symptoms.
--- OUTSIDE RECORDS SUMMARY | 2025-01-11 10:46 | XMS_ITS | Clinical Summary ---
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
== END 2025-01-11 10:19 | disposition home or self-care (01) ==
LOC: HO.HMCH 09:53
PROVIDERS: PCP Internal Medicine; Visit Provider Physician Assistant Medical
DX: R56.9 Unspecified convulsions (principal); I10 Essential (primary) hypertension; F19.10 Other psychoactive substance abuse, uncomplicated; I63.9 Cerebral infarction, unspecified; F41.1 Generalized anxiety disorder

== ENCOUNTER → 2025-01-11 09:52 | Outpatient (BNVA) | payer MEDICARE, MEDICAID, SELFPAY | PROVIDERS: PCP Internal Medicine; Visit Provider Physician Assistant Medical | DX: I10 Essential (primary) hypertension (principal); R56.9 Unspecified convulsions; F19.10 Other psychoactive substance abuse, uncomplicated; F41.1 Generalized anxiety disorder; Z86.73 Personal history of transient ischemic attack (TIA), and cerebral infarction without residual deficits | CPT/HCPCS: 96127; 99212 ==

== ENCOUNTER 2025-05-03 09:40 | Outpatient (AMB) | payer MEDICARE, MEDICAID, SELFPAY ==
--- NOTE | 2025-05-03 09:52 | MHC.PC.OV ---
Vital Signs 05/03/25 09:54 Height 5 ft 2 in Weight 167 lb 2 oz BMI 30.6 BP 138/86 Blood Pressure Location Lt brachial Position Sitting Pulse 83 Pulse Source Pulse Oximeter Temp 97.1 F Temp Source Temporal Artery Scan Pulse Oximetry (%) 97 Oxygen Delivery Method Room Air Intake Visit Reasons: 3 month f/u - see comments Intake Note: Patient is here to follow up on HTN. 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 Gasateria Attendant: Present Accompanied by: Sister Allergies No Known Allergies Allergy (Mild, Verified 05/03/25 09:54) NOT APPLICABLE Tobacco use date assessed: 05/03/25 Dental Screening Dental Screen Date: 01/11/25 [facility] Medical History Fall Hx of ectopic Elevated cholesterol Lab test negative for COVID-19 virus Drug abuse Seizure CVA (cerebral vascular accident) Positive colorectal cancer screening using Cologuard test Benign essential HTN Endogenous depression Surgical History H/O colonoscopy (~10/13/20) Hx of unilateral oophorectomy History of back surgery Family History Father Alive and well Mother Alive and well Social History (Updated 05/03/25 @ 09:57 by ANTONELLA Beasley) Household Members: Family and Other Housing: House Do you presently have visiting nurse or other home services: No Alcohol intake: never Comment: seizure precations Patient Tobacco Use Status: Current everyday Tobacco user Tobacco use type: Cigarette Cigarette Packs Per Day: 1 Cigarettes Per Day: 20 Years Smoked: 30 e-Cigarette/Vaping Use: Never Used Second Hand Smoke Exposure: Yes Substance Use Type: Former Substance User service: No Current occupational status: disabled Cognitive needs: No Hearing needs: No Vision needs: No Questionnaire Thrive Questionnaire Date Thrive assessed: 01/11/25 I am a: Patient What is your living situation today?: I have a steady place to live Within the past 12 months, did the food you bought not last and you didn't have the money to get more?: Never true Within the past 12 months, did you worry whether your food would run out before you got money to buy more?: Never true Do you have trouble paying for medicines?: No Do you have trouble getting transportation to medical appointments?: No Do you have trouble paying your heating and electricity bill?: No Do you have trouble taking care of your child, family member or friend?: No Do you have trouble with day-to-day activities such as bathing, preparing meals, shopping, managing finances, etc.?: No Are you currently unemployed and looking for a job?: No Are you interested in more education?: No Please select the resources that you would like help with: None Currently or been in a relationship where the following occur: No concerns reported THRIVE Score: 0 SHERI-7 AMB Questionnaire SHERI-7 Date SHERI - 7 assessed: 11/09/24 Source: Developed by Drs. Erik Rogers, Anaid Dietz, Ilan An and colleagues, with an educational tigist from [employer]. Physical exam (Primary Care) Vital Signs: Last Vital Signs Temp 97.1 F 05/03/25 09:54 Pulse 83 05/03/25 09:54 BP 138/86 05/03/25 09:54 Pulse Ox 97 05/03/25 09:54 Oxygen Delivery Method Room Air 05/03/25 09:54 BMI result Body Mass Index 30.6 Tobacco/Smoking Status: Tobacco use Status Tobacco use date assessed 05/03/25 05/03/25 09:58 Patient Tobacco Use Status Current everyday Tobacco 05/03/25 09:58 Tobacco use type Cigarette 05/03/25 09:58 e-Cigarette/Vaping Use Never Used 05/03/25 09:58 Thrive Assessment: Date of Thrive Assessment Date Thrive assessed 01/11/25 05/03/25 09:58 Currently or been in a relationship where the following occur: No concerns reported Coding Level of Care Code Est Pt Level 4 (16296) Complex EM visit Add On G2211 Diagnoses Generalized anxiety disorder F41.1 Assessment & Plan Assessment & Plan (1) Generalized anxiety disorder: Code(s): F41.1 - Generalized anxiety disorder Category: Medical Plan: Patient wishes to stay on the alprazolam. Risks with methadone explained. She reports she needs a small dose to keep her anxiety at bay Plan History of Present Illness - The patient is a 59-year-old female presenting with medication management concerns. - Methadone use: The patient receives methadone from a clinic and there have been no recent changes in dosage. - Alprazolam use: The patient takes alprazolam at night to aid with relaxation and sleep. She reports that without it, she experiences difficulty sleeping and increased anxiety. - History of stroke: The patient has a history of stroke, which is an old condition. Social History Review of Systems - Neurological: Reports difficulty sleeping and increased anxiety without alprazolam. Physical Exam General: Cooperative and healthy appearing Nutritional Appearance: Well nourished Orientation/consciousness: Patient oriented x3 Limitations: No limitations Head: Normal to inspection General: Appearance normal, both eyes and all related structures Neck: Normal visual inspection Chest: Normal palpation of entire chest wall Respiratory: N ormal respiratory effort Neurology: Patient oriented x3, history of stroke Results Plan 1. Methadone Use - Continue current methadone regimen as prescribed by the clinic. 2. Alprazolam Use - Continue alprazolam for sleep and anxiety management, despite concerns from the methadone clinic. 3. History Of Stroke - No specific interventions discussed for stroke history during this visit. Discussion Notes During the visit, we discussed the interaction concerns between methadone and alprazolam as raised by the methadone clinic. Despite these concerns, the decision was made to continue alprazolam due to its benefits in managing the patient's sleep and anxiety. The patient was advised to monitor for any adverse effects and to follow up in three months. Patient Instructions - Continue taking methadone as prescribed by the clinic. - Continue taking alprazolam at night for sleep and anxiety management. - Schedule a follow-up appointment in three months. Medications: Refilled alprazolam 0.5 mg PO DAILY PRN 14 tabs 0RF anxiety 2 weeks
[2025-05-03 09:54] VITALS: BP 138/86; PULSE 83; TEMP 36.2; O2SAT 97; BMI 30.6
--- OUTSIDE RECORDS SUMMARY | 2025-05-03 10:32 | XMS_ITS | Clinical Summary ---
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
== END 2025-05-03 10:33 | disposition home or self-care (01) ==
LOC: HO.HMCH 09:41
PROVIDERS: PCP Internal Medicine; Visit Provider Internal Medicine
DX: F41.1 Generalized anxiety disorder (principal)

== ENCOUNTER → 2025-05-03 09:40 | Outpatient (BNVA) | payer MEDICARE, MEDICAID, SELFPAY | PROVIDERS: PCP Internal Medicine; Visit Provider Internal Medicine | DX: I10 Essential (primary) hypertension (principal); F41.1 Generalized anxiety disorder; F11.20 Opioid dependence, uncomplicated; Z86.73 Personal history of transient ischemic attack (TIA), and cerebral infarction without residual deficits; Z79.899 Other long term (current) drug therapy | CPT/HCPCS: 99212 ==

== ENCOUNTER 2025-08-01 06:56 | Inpatient (IN) | payer MEDICARE, MEDICAID, SELFPAY ==
[2025-08-01] VITALS (7 sets, daily range): BP systolic 104–179; BP diastolic 58–99; PULSE 48–73; RESP 15–77; TEMP 36.1–38.2; O2SAT 95–100; BMI 28.5
--- NOTE | ~2025-08-01 | XR_ITS ---
EXAMINATION: XR CHEST 1 VIEW HISTORY: likely hip fx, surg anticipated COMPARISON: Comparison is made with the prior examination dated 08/26/2020. FINDINGS: A single AP portable view of the chest performed at 9:37 AM is submitted. The lungs are expanded and clear. There is no pleural effusion, pneumothorax, or pulmonary vascular congestion. The heart is normal in size given technique. There is degenerative disc disease of the spine. There are multiple old healed right rib fractures. XR/XR chest 1V IMPRESSION: No acute cardiopulmonary abnormality. Electronically signed by: Erik García MD 08/01/2025 09:45 AM KALEE
--- NOTE | ~2025-08-01 | XR_ITS ---
EXAMINATION: XR HIP, RIGHT CLINICAL INFORMATION: fall, R hip pain, shortening/rotation COMPARISON: None available. TECHNIQUE: Two views of the right hip and single view of the pelvis. FINDINGS: Comminuted displaced intratrochanteric right femoral fracture with shortening. Femoral head remains well seated within the acetabulum. No additional fracture is identified in the remainder pelvis. Sacroiliac joints, left hip and symphysis pubis are congruent. Hardware in the lower lumbar spine. Multiple clips project over the sacrum. Intravesical tube catheter is present. XR/XR hip RT w PEL1V IMPRESSION: Comminuted displaced intertrochanteric femoral fracture with shortening. No dislocation of the right hip joint. Electronically signed by: Nicola Estrada MD 08/01/2025 09:48 AM [facility]ALEE
--- NOTE | ~2025-08-01 | FL_ITS ---
EXAMINATION: FL GUIDANCE ONLY HISTORY: IM nail, right COMPARISON: Correlation is made to plain films of the right hip dated 08/01/2025. TECHNIQUE: Fluoroscopy time: 31 seconds. Cumulative Dose: 8.60 mGy. DAP: 1543.80 mGycm2 Images: 4. FINDINGS: Fluoroscopic spot films of the right hip demonstrate internal fixation of the previously noted intertrochanteric fracture with a compression screw and intramedullary randall. FL/FL guidance in OR IMPRESSION: Fluoroscopy during procedure. Please see procedure report for additional information. Electronically signed by: Erik García MD 08/02/2025 02:16 PM KALEE
--- NOTE | 2025-08-01 06:56 | ED.GENADULT ---
HPI - General Adult General Chief complaint: Fall Stated complaint: R Broken hip Source: patient, EMS, RN notes reviewed and old records reviewed Mode of arrival: ambulatory Limitations: physical limitation History of Present Illness ED Provider: Tawanna SYED narrative: Patient is a 59-year-old female with past medical history of CVA with subsequent right-sided deficits, seizures on Keppra, HTN, drug use, anxiety, depression presenting to the emergency department with complaint of right hip pain after a trip and fall. Patient states that she tripped while walking. Denies any dizziness or lightheadedness prior to fall. Denies head strike or loss of consciousness. She is not anticoagulated. States she did not take her seizure medication this morning prior to the fall. Rates her right hip pain at 06/08. MD complaint: hip pain Related Data Home Medications ?Medication ?Instructions ?Recorded ?Confirmed aspirin 81 mg tablet,delayed 81 mg PO DAILY 08/26/20 01/11/25 release methadone 10 mg/mL oral concentrate 155 mg PO DAILY 05/13/22 01/11/25 Previous Rx's ?Medication ?Instructions ?Recorded atorvastatin 20 mg tablet 20 mg PO DAILY #90 tabs 02/07/23 citalopram 20 mg tablet 20 mg PO DAILY 90 days #90 tabs 05/15/24 levetiracetam 500 mg tablet 500 mg PO BID #60 tabs 05/18/24 (Keppra) lisinopril 10 mg tablet 10 mg PO DAILY #90 tabs 05/02/25 ropinirole 3 mg tablet 3 mg PO BEDTIME #90 tabs 05/15/25 mirtazapine 15 mg tablet (Remeron) 15 mg PO BEDTIME #30 tabs 06/20/25 alprazolam 0.5 mg tablet 0.5 mg PO DAILY 14 days #14 tabs 07/18/25 Allergies Allergy/AdvReac Type Severity Reaction Status Date / Time No Known Allergies Allergy Mild NOT Verified 08/01/25 07:03 APPLICABLE Review of Systems Review of Systems: As per HPI Yes all other systems are reviewed and are negative Constitutional: Constitutional: Reports as per HPI [facility] Past Medical History Medical History Fall Hx of ectopic Elevated cholesterol Lab test negative for COVID-19 virus Drug abuse Seizure CVA (cerebral vascular accident) Positive colorectal cancer screening using Cologuard test Benign essential HTN Endogenous depression Surgical History H/O colonoscopy (~10/13/20) Hx of unilateral oophorectomy History of back surgery Family History Family History Father Alive and well Mother Alive and well Social History Social History (Updated 05/03/25 @ 09:57 by ANTONELLA Beasley) Household Members: Family and Other Housing: House Do you presently have visiting nurse or other home services: No Alcohol intake: never Comment: seizure precations Patient Tobacco Use Status: Current everyday Tobacco user Tobacco use type: Cigarette Cigarette Packs Per Day: 1 Cigarettes Per Day: 20 Years Smoked: 30 e-Cigarette/Vaping Use: Never Used Second Hand Smoke Exposure: Yes Substance Use Type: Former Substance User Advance Directives: No Advance Directives Information Provided: Yes Do you have a plan to hurt others: No Plan service: No Current occupational status: disabled Cognitive needs: No Hearing needs: No Vision needs: No Physical Exam ED Vital Signs: Vital Signs - 24 hr 08/01/25 06:57 08/01/25 08:00 08/01/25 10:07 Temperature 98.0 F 98.1 F Pulse Rate 52 69 68 Respiratory Rate 16 77 H 16 Blood Pressure 172/68 H 179/99 H 168/87 H Pulse Oximetry 98 98 98 Oxygen Delivery Method Room Air Room Air Room Air BMI result Body Mass Index 28.5 Vital signs have been reviewed and appear to be correct. Blood pressure elevated. Heart rate normal. Respiratory rate normal. Temperature normal. Oxygen saturation normal. Const General: cooperative and no acute distress Orientation/consciousness: oriented to person, oriented to place, oriented to time and patient oriented x3 HENMT Head: Yes normocephalic and Yes atraumatic Ears: external ears normal General nose exam: Normal external nose present Face and sinus: Yes face symmetric Mouth: oropharynx normal and moist mucous membranes Throat: Yes uvula midline Eyes Pupils: Equal, round and reactive pupils present Neck Neck: Yes normal visual inspection and Yes supple Resp Effort & Inspection: normal respiratory effort and able to speak in complete sentences Auscultation: clear to auscultation bilaterally Cardio Rate: regular rate Rhythm: regular rhythm Heart sounds: S1 normal heart sound present and S2 normal heart sound present GI Palpation (GI): Soft to palpation and nontender Auscultation: normoactive bowel sounds General: Yes no CVA tenderness Back/Spine/Pelvis Back: no CVA tenderness Skin General skin exam: elasticity normal and turgor normal Neuro General: oriented to person, oriented to place, oriented to time, patient oriented x3 and CN's II-XI intact bilaterally Cranial nerves: Yes Equal, round and reactive pupils present Cognition (Neuro): normal cognition Extrem General: Yes no pedal edema and Yes no calf tenderness Right upper extremity: abnormal to inspection (contracted) Right lower extremity: hip/thigh Details: tenderness (right leg shortened, externally rotated) Location: of the hip Psych Mental Status: mental status grossly normal Affect: normal affect Thought process: Normal thought process present Medications Administered Discontinued Medications Generic Name Dose Route Start Last Admin Trade Name Freq PRN Reason Stop Dose Admin Diazepam 2.5 mg 08/01/25 07:07 08/01/25 07:21 Diazepam 10 Mg/2 Ml Cartridge IVPUSH 08/01/25 07:08 2.5 mg STAT STA Administration Hydromorphone HCl 1 mg 08/01/25 08:20 08/01/25 08:26 Hydromorphone Hcl 1 Mg/Ml Syringe IVPUSH 08/01/25 08:21 1 mg ONCE ONE Administration Protocol Ketamine HCl 10 mg 08/01/25 09:14 08/01/25 09:21 Ketamine Hcl/Ns 50 Mg/5 Ml Syringe IVPUSH 08/01/25 09:15 10 mg ONCE ONE Administration Levetiracetam 500 mg 08/01/25 07:07 08/01/25 07:20 Levetiracetam 500 Mg Tablet PO 08/01/25 07:08 500 mg ONCE ONE Administration Morphine Sulfate 4 mg 08/01/25 07:45 08/01/25 07:40 Morphine Sulfate 2 Mg/Ml Cartridge IVPUSH 08/01/25 07:46 4 mg ONCE ONE Administration Protocol Ondansetron HCl 4 mg 08/01/25 07:07 08/01/25 07:20 Ondansetron Hcl 4 Mg/2 Ml Vial IVPUSH 08/01/25 07:08 4 mg ONCE ONE Administration Medical Decision Making Medical Decision Making MDM Narrative: Patient is a 59-year-old female with past medical history of CVA with subsequent right-sided deficits, seizures on Keppra, HTN, drug use, anxiety, depression presenting to the emergency department with complaint of right hip pain after a trip and fall. On exam patient is awake, A+Ox3, BP elevated likely due to pain, VS otherwise WNL, afebrile, normal neurological exam without focal deficits, physical exam findings as above. Given reported symptoms and physical exam findings, initial differential includes but is not limited to right hip fracture, dislocation, contusion. Labs notable for slight thrombocytopenia, hyperglycemia without anion gap. Patient medicated with fentanyl [employer] and reporting 10/10 pain, morphine and valium ordered. Patient denies any relief of pain from morphine and valium, will try dilaudid. Patient denies any relief of pain from dilaudid, images still not taken due to pain level. Patient has history of substance use, case discussed with my attending, Dr. Eason, will try pain dose ketamine. X-ray right hip notable for comminuted displaced intertrochanteric femoral fracture. Chest x-ray is without any acute abnormality. My interpretation is in agreement with the radiologist's interpretation. Case discussed with Selin trinidad who advises NPO after midnight, surgery likely tomorrow. Admission to medicine accepted by NORMA Connolly. Differential Diagnosis Differential Diagnoses: The differential diagnosis associated with the presentation includes as per [facility] Admission/Observation Consideration of admission/observation: Escalation of care including admission/observation considered Consult Healthcare Provider Management of the patient was discussed with: Hospitalist and Household Appliance Repairer (amos Smallwood) Lab Data [facility] Lab Attestation statement: I reviewed the patient's lab results. as per [facility] 08/01/25 07:15 08/01/25 07:16 Labs: Lab Results 08/01/25 08/01/25 Range/Units 07:15 07:16 WBC 10.6 (4.8-10.8) X10*3/uL RBC 3.81 L (4.20-5.50) X10*6/uL Hgb 12.0 (12.0-16.0) g/dl Hct 36.3 L (37.0-47.0) % MCV 95.3 (80.0-98.0) fL MCH 31.5 (27.0-33.0) pg MCHC 33.1 (31.0-35.0) g/dl RDW 12.6 (11.0-16.0) % Plt Count 153 L (160-400) X10*3/uL MPV 10.0 (9.4-12.3) fL Immature Gran % (Auto) 1.1 H (0.0-0.4) % Neut % (Auto) 82.3 H (45-73) % Lymph % (Auto) 13.4 L (20-40) % [place] % (Auto) 2.4 (2-11) % Eos % (Auto) 0.6 (0-4) % Baso % (Auto) 0.2 (0-2) % Lymph # (Auto) 1.4 (1.2-4.9) X10*3/uL [place] # (Auto) 0.3 (0.1-1.2) X10*3/uL Eos # (Auto) 0.1 (0.0-0.4) X10*3/uL Baso # (Auto) 0.0 (0.0-0.2) X10*3/uL Abs Immat Gran (auto) 0.12 H (0.00-0.03) X10*3/uL Absolute Neuts (auto) 8.7 H (2.0-8.3) x10*3/uL Absolute Nucleated RBC 0.000 (0.0-0.012) X10*3/uL Nucleated RBC % (auto) 0.0 (0.0-0.2) /100WBC PT 11.8 (11.2-13.5) SEC INR 1.0 (0.9-1.1) Sodium 140 (135-145) mmol/L Potassium 3.4 (3.3-5.1) mmol/L Chloride 104 (96-108) mmol/L Carbon Dioxide 25 (22-29) mmol/L Anion Gap 14 (12-20) BUN 12 (9-16) mg/dL Creatinine 0.84 (0.5-1.4) mg/dL Estim Creat Clear Calc 66.4 Estimated GFR > 60 Random Glucose 208 H (60-115) mg/dL Calcium 9.2 (8.4-10.2) mg/dL Total Bilirubin 0.3 (0.0-1.0) mg/dL AST 17 (5-31) U/L ALT 6 (0-31) U/L Alkaline Phosphatase 97 (39-117) U/L Total Protein 7.2 (6.5-8.0) g/dL Albumin 4.0 (3.5-5.0) g/dL Independent Interpretation I performed an independent interpretation of an: Plain X-Ray Radiology Impression Discussion of test interpretation with radiology: I have reviewed the radiologist's reading. Radiologist Impression: XR/XR hip RT w [id number] IMPRESSION: Comminuted displaced intertrochanteric femoral fracture with shortening. No dislocation of the right hip joint. Electronically signed by: Nicola Estrada MD 08/01/2025 09:48 AM [facility] FINDINGS: A single AP portable view of the chest performed at 9:37 AM is submitted. The lungs are expanded and clear. There is no pleural effusion, pneumothorax, or pulmonary vascular congestion. The heart is normal in size given technique. There is degenerative disc disease of the spine. There are multiple old healed right rib fractures. XR/XR chest 1V IMPRESSION: No acute cardiopulmonary abnormality. External Record Review External record reviewed: Inpatient record, Office record and Outpatient record Critical Care Time Critical Care Time Critical Care Time: Yes Total Critical Care Time: 67 Attestation: I have personally provided critical care time exclusive of time spent on separately billable procedures. Time includes review of lab data, radiology results, discussion with consultants, and monitoring for potential decompensation. Intervention performed as documented. Discharge Plan Discharge Print Language: Guinean
--- NOTE | 2025-08-01 07:07 | ECG_ITS ---
Test Reason : FALL Blood Pressure : */* mmHG Vent. Rate : 64 BPM Atrial Rate : 64 BPM P-R Int : 146 ms QRS Dur : 76 ms QT Int : * ms P-R-T Axes : 46 -5 36 degrees QTcB Int : * ms Artifact in tracing Normal sinus rhythm with sinus arrhythmia Nonspecific ST and T wave abnormality Abnormal ECG When compared with ECG of 18-May-2024 11:08, No significant changes seen Referred By: Claire Stacy Electronically Signed By: BERTIN SOOD
[2025-08-01 07:19] LABS: MANUAL DIFF FLAG NO
[2025-08-01 07:20] LABS: Hematocrit 36.3 % (37.0-47.0); Hemoglobin 12.0 g/dl (12.0-16.0); Imm Gran Abs Auto 0.12 X10*3/uL (0.00-0.03); Imm Gran Pct Auto 1.1 % (0.0-0.4); Lymphocytes Absolute Auto 1.4 X10*3/uL (1.2-4.9); Mean Corpuscular HGB Conc 33.1 g/dl (31.0-35.0); Mean Corpuscular Hemoglobin 31.5 pg (27.0-33.0); Mean Corpuscular Volume 95.3 fL (80.0-98.0); NRBC Abs Auto 0.000 X10*3/uL (0.0-0.012); NRBC Pct Auto 0.0 /100WBC (0.0-0.2); Platelet Count 153 X10*3/uL (160-400); Red Blood Count 3.81 X10*6/uL (4.20-5.50); White Blood Count 10.6 X10*3/uL (4.8-10.8)
[2025-08-01] MEDS: diazePAM 10 MG/2 ML CARTRIDGE 2.5 MG IVPUSH (07:21)
[2025-08-01 07:28] LABS: INTERNATIONAL NORM RATIO 1.0 (0.9-1.1); Prothrombin Time 11.8 SEC (11.2-13.5)
[2025-08-01 07:42] LABS: Alanine Aminotransferase 6 U/L (0-31); Albumin Level 4.0 g/dL (3.5-5.0); Alkaline Phosphatase 97 U/L (39-117); Anion Gap 14 (12-20); Aspartate Amino Transferase 17 U/L (5-31); Blood Urea Nitrogen 12 mg/dL (9-16); Calcium 9.2 mg/dL (8.4-10.2); Carbon Dioxide 25 mmol/L (22-29); Chloride 104 mmol/L (96-108); Creatinine Clr Calc Pharmacy 66.4; Estimated Glomerular Filt Rate > 60; Potassium 3.4 mmol/L (3.3-5.1); Sodium 140 mmol/L (135-145); Total Protein 7.2 g/dL (6.5-8.0)
--- OUTSIDE RECORDS SUMMARY | 2025-08-01 08:09 | XMS_ITS | Clinical Summary ---
Author Organization [facility] ity Address [address] [place] [address] Care Team Providers Care Trade Promotion Analyst Name Role Phone Unavailable Primary Care Provider [...] Depression Screening 08/30/2024 COVID-19 Vaccine ( - 2024-2 6 season) 2025 Influenza Vaccine (#1) 2025 RSV [...]
[2025-08-01] MEDS: Ketamine HCl/NS 50 MG/5 ML SYRINGE 10 MG IVPUSH (09:21)
--- NOTE | 2025-08-01 10:22 | P.CONOP_ITS ---
History of Present Illness HPI Consult date: 08/01/25 Chief complaint: R Broken hip Narrative: Ms. Schroeder is a 59-year-old female with past medical history of CVA with subsequent right-sided deficits, seizures on Keppra, HTN, drug use, anxiety, depression presenting to the emergency department with complaint of right hip pain after a mechanical fall. She reports that she is ambulatory at baseline. She does not use a walker or can to assist with ambulation. She reports that she lives alone. She denies any currently drug or alcohol use. She smokes roughly 1/2 ppd. X-rays obtained in the ED were significant for a right intertrochanteric hip fracture. The patient was admitted to the medicine service with orthopedic consult for further evaluation and treatment. Review of Systems 2 Review of Systems: Yes all other systems are reviewed and are negative [facility] Past Medical History Medical History Fall Hx of ectopic Elevated cholesterol Lab test negative for COVID-19 virus Drug abuse Seizure CVA (cerebral vascular accident) Positive colorectal cancer screening using Cologuard test Benign essential HTN Endogenous depression Family History Family History Father Alive and well Mother Alive and well Surgical History Surgical History H/O colonoscopy (~10/13/20) Hx of unilateral oophorectomy History of back surgery Social History Social History (Updated 05/03/25 @ 09:57 by ANTONELLA Beasley) Household Members: Family and Other Housing: House Do you presently have visiting nurse or other home services: No Alcohol intake: never Comment: seizure precations Patient Tobacco Use Status: Current everyday Tobacco user Tobacco use type: Cigarette Cigarette Packs Per Day: 1 Cigarettes Per Day: 20 Years Smoked: 30 e-Cigarette/Vaping Use: Never Used Second Hand Smoke Exposure: Yes Substance Use Type: Former Substance User Advance Directives: No Advance Directives Information Provided: Yes Do you have a plan to hurt others: No Plan service: No Current occupational status: disabled Cognitive needs: No Hearing needs: No Vision needs: No Meds Allergies Allergy/AdvReac Type Severity Reaction Status Date / Time No Known Allergies Allergy Mild NOT Verified 08/01/25 07:03 APPLICABLE Home Medications ?Medication ?Instructions ?Recorded ?Confirmed ?Last Taken ?Type aspirin 81 mg tablet,delayed 81 mg PO DAILY 08/26/20 0 01/11/25 Unknown History release methadone 10 mg/mL oral concentrate 155 mg PO DAILY 01/11/25 05/17/24 History Physical Exam 2 Vital Signs: Vital Signs: Last Vital Signs Temp 98.1 F 08/01/25 10:07 Pulse 68 08/01/25 10:07 Resp 16 08/01/25 10:07 BP 168/87 H 08/01/25 10:07 Pulse Ox 98 08/01/25 10:07 O2 Del Method Room Air 08/01/25 10:07 BMI result Body Mass Index 28.5 Const: General: cooperative, healthy appearing and no acute distress Resp: Effort & Inspection: normal respiratory effort and able to speak in complete sentences Extrem: Other: RLE: shortened and externally rotated. Pain with any attempt of motion. Able to dorsi/plantar flex. Psych: Appearance: grossly normal Mental Status: mental status grossly normal Attitude: cooperative Results Labs 08/01/25 07:15 08/01/25 07:16 Labs: Abnormal lab results 08/01/25 08/01/25 Range/Units 07:15 07:16 RBC 3.81 L (4.20-5.50) X10*6/uL Hct 36.3 L (37.0-47.0) % Plt Count 153 L (160-400) X10*3/uL Immature Gran % (Auto) 1.1 H (0.0-0.4) % Neut % (Auto) 82.3 H (45-73) % Lymph % (Auto) 13.4 L (20-40) % Abs Immat Gran (auto) 0.12 H (0.00-0.03) X10*3/uL Absolute Neuts (auto) 8.7 H (2.0-8.3) x10*3/uL Random Glucose 208 H (60-115) mg/dL H & H 08/01/25 Range/Units 07:15 Hgb 12.0 (12.0-16.0) g/dl Hct 36.3 L (37.0-47.0) % Coagulation 12/03/25 Range/Units 07:15 INR 1.0 (0.9-1.1) All other labs normal. Assessment and Plan (1) Closed intertrochanteric fracture of right hip: Status: Acute Plan The risks, benefits, and alternatives of?operative fixation of the femur were discussed with the patient. Benefits include stabilization of the?fracture, yarsanism of length and alignment, and the potential for earlier mobilization and weight-bearing with high rates of union. Risks include infection, bleeding or transfusion, neurovascular injury, fat embolism, DVT/PE, malalignment or leg length discrepancy, nonunion or delayed union that may require further surgery, hardware-related complications, and?hip?or knee pain related to the nail entry site, as well as standard anesthesia risks. Alternatives include nonoperative management such as traction or bracing (with higher rates of malunion, nonunion, and immobility-related complications), plate fixation in select cases, or external fixation as temporary or definitive treatment. The patient voiced understanding and agreed to proceed with operative fixation of the right femur with Dr. Jay. The patient will be admitted to the medicine service. Medical clearance to be obtained. The patient will be NPO aftermidnight. Procedures Date of Service Date of Service: 08/01/25
--- NOTE | 2025-08-01 11:06 | P.HPHOSP_ITS ---
History of Present Illness Date of Service: 08/01/25 Chief Complaint: Mechanical fall Patient is a 59-year-old female with PMH notable for prior CVA with residual right-sided deficits, generalized seizure with Keppra dose (did skip the dose this a.m.), HTN, drug use, anxiety, depression who presented with a stated tripping and falling and sustained a right hip fracture. She denied any syncopal or presyncopal episodes, chest pain shortness of breath or any lightheadedness. Denied any anticoagulation or any recent drug use. Was seen by Orthopedics in the ED and is to undergo open reduction internal fixation of the right hip tomorrow a.m.. ED course-she had to receive Valium 2.5 mg, Dilaudid 1 mg IVP, ketamine 10 mg IVP, morphine 4 mg IVP just to get her to be able to get an x-ray of her hip. When I examined the patient in the ED-she appeared to be calm, was in Trendelenburg position, vitals WNL EKG QTC prolongation, gave her a dose of magnesium 2 g IV We will repeat EKG Being admitted under medical service and Orthopedics to consult. Review of Systems 2 Review of Systems: Yes all other systems are reviewed and are negative [facility] Medical History Fall Hx of ectopic Elevated cholesterol Lab test negative for COVID-19 virus Drug abuse Seizure CVA (cerebral vascular accident) Positive colorectal cancer screening using Cologuard test Benign essential HTN Endogenous depression Family History Father Alive and well Mother Alive and well Surgical History H/O colonoscopy (~10/13/20) Hx of unilateral oophorectomy History of back surgery Social History Household Members: None Housing: Apartment Do you presently have visiting nurse or other home services: No Alcohol intake: never Comment: seizure precations Patient Tobacco Use Status: Current everyday Tobacco user Tobacco use type: Cigarette Cigarette Packs Per Day: 1 Cigarettes Per Day: 6 Years Smoked: 30 e-Cigarette/Vaping Use: Never Used Patient Interested in Nicotine Replacement: Yes Patient Given Instructions on How to Stop Smoking: Yes Date Education Initiated: 08/01/25 Second Hand Smoke Exposure: Yes Substance Use Type: Former Substance User Have you been hit, kicked, punched, or otherwise hurt by someone within the past year? If so, by whom?: No Is there a partner from a previous relationship who is making you feel unsafe now?: No Are you made to feel afraid or neglected: No [facility] Practices: yazidi Advance Directives: No Advance Directives Information Provided: Yes Do you have a plan to hurt others: No Plan Recently lost weight without trying: No How much weight loss: Not applicable Nutrition Risks: No Nutritional Risk Patient : No : No service: No Current occupational status: disabled Cognitive needs: No Hearing needs: No Vision needs: No Meds Allergies Allergy/AdvReac Type Severity Reaction Status Date / Time No Known Allergies Allergy Mild NOT Verified 08/01/25 07:03 APPLICABLE Active Medications: Current Medications Cefazolin Sodium/Dextrose (Ancef) 2 gm in 50 mls @ 100 mls/hr IV PREOP ONE Stop: 08/02/25 13:29 Home Medications ?Medication ?Instructions ?Recorded ?Confirmed ?Last Taken ?Type aspirin 81 mg tablet,delayed 81 mg PO DAILY 08/26/20 1 10/02/24 07/31/25 History release methadone 10 mg/mL oral concentrate 155 mg PO DAILY 01/11/25 05/17/24 History Physical Exam 2 Vital Signs and Narrative: Vital Signs: Last Vital Signs Temp 98.1 F 08/01/25 10:07 Pulse 68 08/01/25 10:07 Resp 16 08/01/25 10:07 BP 168/87 H 08/01/25 10:07 Pulse Ox 98 08/01/25 10:07 O2 Del Method Room Air 08/01/25 10:07 BMI result Body Mass Index 28.5 General: AOx3, no acute distress Resp: CTA bilaterally CVS: S1, S2, RRR GI: +BS, NT, no distention Neuro: Right leg neurovascularly intact Results Labs 08/01/25 07:15 08/01/25 07:16 Labs: Laboratory Results - last 24 hr 08/01/25 08/01/25 07:15 07:16 MCV 95.3 MCH 31.5 MCHC 33.1 RDW 12.6 Plt Count 153 L MPV 10.0 Immature Gran % (Auto) 1.1 H Neut % (Auto) 82.3 H Lymph % (Auto) 13.4 L [place] % (Auto) 2.4 Eos % (Auto) 0.6 Baso % (Auto) 0.2 Lymph # (Auto) 1.4 [place] # (Auto) 0.3 Eos # (Auto) 0.1 Baso # (Auto) 0.0 Abs Immat Gran (auto) 0.12 H Absolute Neuts (auto) 8.7 H Absolute Nucleated RBC 0.000 Nucleated RBC % (auto) 0.0 PT 11.8 INR 1.0 Anion Gap 14 Estim Creat Clear Calc 66.4 Estimated GFR > 60 Random Glucose 208 H Calcium 9.2 Total Bilirubin 0.3 AST 17 ALT 6 Alkaline Phosphatase 97 Total Protein 7.2 Albumin 4.0 Imaging Radiologist's Impressions: Impressions Hip/Pelvis X-Ray 08/01/25 09:30 IMPRESSION: Comminuted displaced intertrochanteric femoral fracture with shortening. No dislocation of the right hip joint. Electronically signed by: Nicola Estrada MD 08/01/2025 09:48 AM EST RP Chest X-Ray 08/01/25 09:37 IMPRESSION: No acute cardiopulmonary abnormality. Electronically signed by: Erik García MD 08/01/2025 09:45 AM EST RP Assessment and Plan (1) Closed intertrochanteric fracture of right femur: Status: Acute Patient is a 59-year-old female with PMH notable for prior CVA with residual right-sided deficits, generalized seizure with Keppra dose (did skip the dose this a.m.), HTN, S UD on methadone, anxiety, depression who presented with a stated tripping and falling and sustained a right hip fracture. Patient being admitted for ORIF of the right hip Mechanical fall right hip fracture Mechanical fall causing right-sided acute subcapital fracture of the right hip with varus deformity Pain control with Tylenol, oxycodone, Dilaudid, Robaxin, lidocaine patch NPO from midnight Factor protocol Type and screen Electrolytes WNL Not hypoglycemic Tele PT Orthopedic consulted by ED DVT prophylaxis with the SCD boots in the anticipation of surgical management in the a.m. Post surgery we will initiate her on Lovenox GQWL-tevk-ko-moderate risk for surgery QTC prolongation-status post magnesium Check EKG in the a.m. Prior CVA residual side effects PT Generealized seisure cont Keppra seizure precautions GALILEO Confirm methadone dose and cont Utox and Etoh Anxiety and depressin Cont home meds Plan Patient is a 59-year-old female with PMH notable for prior CVA with residual right-sided deficits, generalized seizure with Keppra dose (did skip the dose this a.m.), HTN, S UD on methadone, anxiety, depression who presented with a stated tripping and falling and sustained a right hip fracture. Patient being admitted for ORIF of the right hip Mechanical fall right hip fracture Mechanical fall causing right-sided acute subcapital fracture of the right hip with varus deformity Pain control with Tylenol, oxycodone, Dilaudid, Robaxin, lidocaine patch NPO from midnight Factor protocol Type and screen Electrolytes WNL Not hypoglycemic Tele PT Orthopedic consulted by ED DVT prophylaxis with the SCD boots in the anticipation of surgical management in the a.m. Post surgery we will initiate her on Lovenox JVIP-jjhm-fg-moderate risk for surgery QTC prolongation-status post magnesium Check EKG in the a.m. Prior CVA residual side effects PT Generealized seisure cont Keppra seizure precautions GALILEO Confirm methadone dose and cont Utox and Etoh Anxiety and depressin Cont home meds DVT px- scd boots This note is constructed using voice recognition software. While every effort has been made to ensure accuracy, adult live in caregiver errors may have been included. Quality Stroke Does the patient have a stroke diagnosis?: No VTE Prior VTE?: No VTE Risk Level:: Medical - moderate - high VTE Device Contraindication: N/A - Device Ordered VTE Drug Contraindication: N/A - Med Ordered
--- NOTE | 2025-08-01 12:47 | PHA.MEDREC ---
Addendum entered by Malik Sears RP 08/01/25 13:29: Reviewed by [facility] - 3 meds filled at [facility] were Lisinopril, mirtazapine, and ropinirole. will communicate with provider we could not find claims for Lipitor, Celexa, and Keppra, but pt states she is on. Original Note: Pharmacy Consult ? Medication Reconciliation Pharmacy has completed the medication reconciliation. Spoke with pt and she confirmed her medications. Pt confirmed she takes Atorvastatin 20mg once daily, Citalopram 20mg once a day and Levetiracetam (Keepra) 500mg BID and that she is filling those at [facility] along with her other meds. I called [facility] and they have no claims for Atorvastatin being filled for at least 2+yrs from them, they got a script back in April 2024 for Citalopram that the pt never picked up and that script is now and pt last got Levetiracetam from [facility] 04/2024 and nothing since, I called [facility] (pt got 3 meds from them 07/20/2025) to see if they have claims and they have no history of Ator, Cital or Leve being filled with them and then I called [facility] to see if they have claims for those meds and again pt has not filled meds at their facility since 08/2023 and they did not see anything for Ator, Cital or Leve being filled with them. PT confirmed her Methadone, confirming she takes 100mg daily of that and took that last yesterday (07/31) along with her other medications.
[2025-08-01] MEDS: Magnesium Sulfate/H2O 2 GM/50 ML PIGGYBACK IV (13:56)
[2025-08-01 13:58] LABS: Troponin-I High Sensitivity < 2.7 ng/L (<3.5-17.0)
[2025-08-01 14:06] LABS: Thyroid Stimulating Hormone 1.98 uIU/mL (0.32-4.0)
--- NOTE | 2025-08-01 16:54 | HO.NURTONUR ---
Pt is a 59yo F coming from home s/p ground level mechanical fall. Denies LOC. Neg headstrike. Obv deformity to rt hip. XR shows rt femoral head fx. Ortho to take pt to OR 08/02. NPO at midnight. Pt with hx of polysubstance use disorder, seizure, CVA, depression. Pt reports going to [facility] methadone clinic in [place]. Pt received morphine, dilaudid with no relief, and ultimately ketamine IV given with relief. Pt has been resting quietly. 20gLFA. Purewick in place. Takes pills whole. NSR on the monitor. VSS.
--- NOTE | 2025-08-01 17:06 | PC.NURSE ---
attempted x2 to call methadone clinic pt reports going to. [facility] does not have any records of patient.
--- NOTE | 2025-08-01 17:15 | MHC.RECOVRN ---
Consult to Addiction Medicine received for methadone verification. Pt reports attending [facility] on [facility], however [facility] does not have a clinic on [facility], nor do they have a record of the pt. Call placed to [facility] and message left, since they are located on [facility]. Awaiting return call.
[2025-08-01 17:55] LABS: NT Pro B Type Natriuretic Pept 229.5 pg/mL (<300)
--- NOTE | 2025-08-01 18:18 | MHC.RECOVRN ---
methadone confirmed with [facility] [phone] per Jennifer RN; Last dose was 07/31/25, 175mg @ 0700 Verification delivered to pharmacy
--- NOTE | 2025-08-01 18:38 | HE.PHANOTE ---
RE: METHADONE DOSING Last dose of methadone 175 mg was given on 07/31/25@0700 at [facility] [phone] per EMILIANO Rodriguez.
[2025-08-01 19:07] LABS: Appearance Urine Clear; Glucose Urine UA Negative (Negative); PH 6.5 (5.0-9.0); Specific Gravity - Urine 1.020 (1.005-1.025); UMIC TRIGGER UACC YES
[2025-08-01 19:11] LABS: Cannabinoid Screen Urine Not Detected (Not Detect)
[2025-08-01] MEDS: oxyCODONE HCl ER 10 MG TAB.ER.12H 20 MG PO (20:14)
--- NOTE | 2025-08-01 23:02 | PC.NURSE ---
Notified by obiee report developer tech that patients heart rate was SINUS ABRAHAM RANGING FROM 45-50. Patient asleep in room. Lucy Anton notified. Told to notify her if patients heart rate decreases to 35.
[2025-08-02] VITALS (24 sets, daily range): BP systolic 106–186; BP diastolic 40–83; PULSE 46–78; RESP 12–24; TEMP 36.1–37.3; O2SAT 95–100
--- NOTE | 2025-08-02 | ECG_ITS ---
Test Reason : QTC CHECK Blood Pressure : */* mmHG Vent. Rate : 48 BPM Atrial Rate : 48 BPM P-R Int : 142 ms QRS Dur : 76 ms QT Int : 566 ms P-R-T Axes : 43 -1 71 degrees QTcB Int : 505 ms Sinus bradycardia Nonspecific T wave abnormality Abnormal ECG When compared with ECG of 01-Aug-2025 07:27, No significant change was found Referred By: Karina Mustafa Electronically Signed By: BERTIN SOOD
[2025-08-02 06:18] LABS: MANUAL DIFF FLAG NO
[2025-08-02 06:38] LABS: Hematocrit 29.7 % (37.0-47.0); Hemoglobin 9.5 g/dl (12.0-16.0); Imm Gran Abs Auto 0.02 X10*3/uL (0.00-0.03); Imm Gran Pct Auto 0.4 % (0.0-0.4); Lymphocytes Absolute Auto 1.4 X10*3/uL (1.2-4.9); Mean Corpuscular HGB Conc 32.0 g/dl (31.0-35.0); Mean Corpuscular Hemoglobin 30.5 pg (27.0-33.0); Mean Corpuscular Volume 95.5 fL (80.0-98.0); NRBC Abs Auto 0.000 X10*3/uL (0.0-0.012); NRBC Pct Auto 0.0 /100WBC (0.0-0.2); Platelet Count 156 X10*3/uL (160-400); Red Blood Count 3.11 X10*6/uL (4.20-5.50); White Blood Count 5.4 X10*3/uL (4.8-10.8)
[2025-08-02 06:49] LABS: Alanine Aminotransferase < 6 U/L (0-31); Albumin Level 3.1 g/dL (3.5-5.0); Alkaline Phosphatase 70 U/L (39-117); Anion Gap 11 (12-20); Aspartate Amino Transferase 19 U/L (5-31); Blood Urea Nitrogen 12 mg/dL (9-16); Calcium 8.4 mg/dL (8.4-10.2); Carbon Dioxide 25 mmol/L (22-29); Chloride 105 mmol/L (96-108); Creatinine Clr Calc Pharmacy 62.6; Estimated Glomerular Filt Rate > 60; Magnesium 2.3 mg/dL (1.6-2.6); Potassium 3.6 mmol/L (3.3-5.1); Sodium 137 mmol/L (135-145); Total Protein 5.8 g/dL (6.5-8.0)
[2025-08-02] MEDS: oxyCODONE HCl ER 10 MG TAB.ER.12H 20 MG PO (08:46)
[2025-08-02] MEDS: Lidocaine 4 % Patch ADH..PATCH 2 PATCH TRANSDERMA (08:46)
[2025-08-02] MEDS: Potassium Chloride Packet 20 MEQ PACKET PO (10:17)
--- NOTE | 2025-08-02 10:28 | HO.ADDICT_ITS ---
History of Present Illness Date of Service: 08/02/2025 Chief Complaint: R hip fracture Reason for Consult: methadone Sources of Information: patient interviewed and chart reviewed HPI Narrative: Patient is a 59 year old female with history of CVA, seizure disorder and OUD in sustained remission Presented to [facility] ED via ambulance after a fall at home, which resulted in right hip fracture. Scheduled for surgery today. Consult requested initially to confirm methadone dose-however this was done by nurse. Methadone dose 175mg last dose 07/31 administered at . This morning, patient seen in room 386. She is awake, alert, pleasant and engaged in interview. Reports she has been at current methadone for over a year, however reported that dose to be 100mg QD Denies any opioid use--states that it has been approx 5 years Today she denies any withdrawal sx, as she did not receive methadone dose yesterday 08/01, or yet today. She is c/o hip pain. Denies chills, joint pain, nausea, diaphoresis. Denies dizziness Currently, HR is 48 and BP 111/59. Denies any history of bradycardia or any other cardiac issues impacting methadone dosing Labs and EKG reviewed UDS+ fentanyl--however patient was given fentanyl in ambulance prior to coming to ED Past Psychiatric History: denies psychiatry in past No IPLOC. oupt methadone treatment for many years. Medical Evaluation Reviewed: Yes Review of Systems Constitutional: Reports as per HPI and Reports no additional constitutional complaints Diagnostics Vital Signs (24Hr): Vital Signs - 24 hr 08/01/25 12:56 08/01/25 18:06 08/01/25 19:39 Temperature 100.8 F H 97.1 F Pulse Rate 73 50 65 Respiratory Rate 16 16 15 Blood Pressure 157/79 H 165/81 H 147/71 H Pulse Oximetry 98 95 97 Oxygen Delivery Method Room Air Room Air Room Air 08/01/25 23:42 08/02/25 03:47 08/02/25 07:57 Temperature 96.9 F 97.3 F 97.0 F Pulse Rate 48 L 46 L 48 L Respiratory Rate 15 15 12 Blood Pressure 104/58 L 109/54 L 106/55 L Pulse Oximetry 98 97 96 Oxygen Delivery Method Room Air Room Air Room Air BMI result Body Mass Index 28.5 Labs 08/02/25 05:48 08/02/25 05:48 Labs: Laboratory Results - last 48 hr 08/01/25 08/01/25 08/01/25 07:15 07:16 18:40 WBC 10.6 RBC 3.81 L Hgb 12.0 Hct 36.3 L MCV 95.3 MCH 31.5 MCHC 33.1 RDW 12.6 Plt Count 153 L MPV 10.0 Immature Gran % (Auto) 1.1 H Neut % (Auto) 82.3 H Lymph % (Auto) 13.4 L [place] % (Auto) 2.4 Eos % (Auto) 0.6 Baso % (Auto) 0.2 Lymph # (Auto) 1.4 [place] # (Auto) 0.3 Eos # (Auto) 0.1 Baso # (Auto) 0.0 Abs Immat Gran (auto) 0.12 H Absolute Neuts (auto) 8.7 H Absolute Nucleated RBC 0.000 Nucleated RBC % (auto) 0.0 PT 11.8 INR 1.0 Sodium 140 Potassium 3.4 Chloride 104 Carbon Dioxide 25 Anion Gap 14 BUN 12 Creatinine 0.84 Estim Creat Clear Calc 66.4 Estimated GFR > 60 Random Glucose 208 H Calcium 9.2 Magnesium Total Bilirubin 0.3 AST 17 ALT 6 Alkaline Phosphatase 97 Troponin I High Sens < 2.7 NT-Pro-B Natriuret Pep 229.5 Total Protein 7.2 Albumin 4.0 TSH 1.98 Urine Color Yellow Urine Appearance Clear Urine pH 6.5 Ur Specific [place] 1.020 Urine Protein Trace Urine Glucose (UA) Negative Urine Ketones Negative Urine Blood Trace H Urine Nitrite Negative Ur Leukocyte Esterase Negative Urine RBC 6-10 H Urine WBC 0-5 Ur Squamous Epith Cells 0-2 Urine Bacteria None Seen Hyaline Casts 0-2 Urine Opiates Screen POSITIVE H Ur Buprenorphine Scrn Not Detected Ur Oxycodone Screen Not Detected Urine Methadone Screen Positive H Urine Fentanyl Screen POSITIVE H Ur Barbiturates Screen Not Detected Ur Phencyclidine Scrn Not Detected Ur Amphetamines Screen Not Detected U Benzodiazepines Scrn Not Detected Urine Cocaine Screen Not Detected U Marijuana (THC) Screen Not Detected Ethyl Alcohol < 10 08/02/25 05:48 WBC 5.4 RBC 3.11 L Hgb 9.5 L D Hct 29.7 L MCV 95.5 MCH 30.5 MCHC 32.0 RDW 12.8 Plt Count 156 L MPV 10.6 Immature Gran % (Auto) 0.4 Neut % (Auto) 64.8 Lymph % (Auto) 26.7 [place] % (Auto) 7.0 Eos % (Auto) 0.7 Baso % (Auto) 0.4 Lymph # (Auto) 1.4 [place] # (Auto) 0.4 Eos # (Auto) 0.0 Baso # (Auto) 0.0 Abs Immat Gran (auto) 0.02 Absolute Neuts (auto) 3.5 Absolute Nucleated RBC 0.000 Nucleated RBC % (auto) 0.0 PT INR Sodium 137 Potassium 3.6 Chloride 105 Carbon Dioxide 25 Anion Gap 11 L BUN 12 Creatinine 0.89 Estim Creat Clear Calc 62.6 Estimated GFR > 60 Random Glucose 124 H Calcium 8.4 D Magnesium 2.3 Total Bilirubin 0.4 AST 19 ALT < 6 Alkaline Phosphatase 70 Troponin I High Sens NT-Pro-B Natriuret Pep Total Protein 5.8 L Albumin 3.1 L TSH Urine Color Urine Appearance Urine pH Ur Specific [place] Urine Protein Urine Glucose (UA) Urine Ketones Urine Blood Urine Nitrite Ur Leukocyte Esterase Urine RBC Urine WBC Ur Squamous Epith Cells Urine Bacteria Hyaline Casts Urine Opiates Screen Ur Buprenorphine Scrn Ur Oxycodone Screen Urine Methadone Screen Urine Fentanyl Screen Ur Barbiturates Screen Ur Phencyclidine Scrn Ur Amphetamines Screen U Benzodiazepines Scrn Urine Cocaine Screen U Marijuana (THC) Screen Ethyl Alcohol Imaging Radiology Impressions: ITS Impressions Hip/Pelvis X-Ray 08/01/25 09:30 IMPRESSION: Comminuted displaced intertrochanteric femoral fracture with shortening. No dislocation of the right hip joint. Electronically signed by: Nicola Estrada MD 08/01/2025 09:48 AM EST RP Chest X-Ray 08/01/25 09:37 IMPRESSION: No acute cardiopulmonary abnormality. Electronically signed by: Erik García MD 08/01/2025 09:45 AM EST RP Mental Status Exam Mental Status Exam Patient Appearance: Appropriate Level of Consciousness: Awake, Appropriate and Alert Patient Behavior: Appropriate and Cooperative Affect Description: Calm Speech Pattern: Clear Thought Process: Intact Thought Content: positive for Intact Judgement: Good Medications Medications Current Medications Acetaminophen (Acetaminophen 325 Mg Tablet) 975 mg PO Q6H MARIEL Last Admin: 08/02/25 10:18 Dose: Not Given Aspirin (Aspirin Enteric Coated 81 Mg Tablet.) 81 mg PO DAILY [facility] On Hold: 08/02/25 09:00 Last Admin: 08/02/25 07:10 Dose: Not Given Atorvastatin Calcium (Atorvastatin Calcium 40 Mg Tablet) 40 mg PO DAILY [facility] Last Admin: 08/02/25 08:46 Dose: 40 mg Enoxaparin Sodium (Enoxaparin Sodium 40 Mg/0.4 Ml Syringe) 40 mg SUBCUT Q12H [facility] Last Admin: 08/02/25 07:10 Dose: Not Given Escitalopram Oxalate (Escitalopram Oxalate 10 Mg Tablet) 10 mg PO DAILY [facility] Last Admin: 08/02/25 08:46 Dose: 10 mg Hydromorphone HCl (Hydromorphone Hcl 1 Mg/Ml Syringe) 1 mg IVPUSH Q4H PRN; Protocol PRN Reason: Pain, Severe (Pain Scale 7-10) Last Admin: 08/02/25 09:12 Dose: 1 mg Cefazolin Sodium/Dextrose (Ancef) 2 gm in 50 mls @ 100 mls/hr IV PREOP ONE Stop: 08/02/25 13:29 Levetiracetam (Levetiracetam 500 Mg Tablet) 500 mg PO BID [facility] Last Admin: 08/02/25 08:46 Dose: 500 mg Lidocaine (Lidocaine 4 % Patch Adh..Patch) 2 patch TRANSDERMA DAILY [facility]; Protocol Last Admin: 08/02/25 08:46 Dose: 1 patch Lisinopril (Lisinopril 10 Mg Tablet) 10 mg PO DAILY [facility]; Protocol Last Admin: 08/02/25 09:03 Dose: Not Given Magnesium Oxide (Magnesium Oxide 400 Mg Tablet) 400 mg PO BIDPC [facility] Last Admin: 08/02/25 08:46 Dose: 400 mg Methocarbamol (Methocarbamol 500 Mg Tablet) 500 mg PO QID [facility] Last Admin: 08/02/25 08:46 Dose: 500 mg Mirtazapine (Mirtazapine 15 Mg Tablet) 15 mg PO BEDTIME [facility] Last Admin: 08/01/25 20:14 Dose: 15 mg Oxycodone HCl (Oxycodone Hcl Er 10 Mg Tab.Er.12h) 20 mg PO BID [facility] Last Admin: 08/02/25 08:46 Dose: 20 mg Oxycodone HCl (Oxycodone Hcl Immed Release 5 Mg Tablet) 10 mg PO Q6H PRN PRN Reason: Pain, Moderate(Pain Scale 4-6) Ropinirole HCl (Ropinirole Hcl 1 Mg Tablet) 3 mg PO BEDTIME MARIEL Last Admin: 08/01/25 20:13 Dose: 3 mg Allergies Allergies Allergy/AdvReac Type Severity Reaction Status Date / Time No Known Allergies Allergy Mild NOT Verified 08/01/25 07:03 APPLICABLE Assessment & Plan Assessment & Plan (1) Opioid use disorder, moderate, in sustained remission: Status: Acute Code(s): F11.21 - Opioid dependence, in remission Assessment and Plan: * methadone 75mg X1 due to bradycardia. At this time, no concern for withdrawal * will add PRN doses of methadone for today and resume home dose in AM * consider d/c of scheduled ER oxycodone, as this may be contributing to HR * will likely require higher doses of pain medications following surgery given opiate tolerance Total time managing care of this patient today __35__ minutes. [facility] Past Medical History Medical History Fall Hx of ectopic Elevated cholesterol Lab test negative for COVID-19 virus Drug abuse Seizure CVA (cerebral vascular accident) Positive colorectal cancer screening using Cologuard test Benign essential HTN Endogenous depression Family History Family History Father Alive and well Mother Alive and well Surgical History Surgical History H/O colonoscopy (~10/13/20) Hx of unilateral oophorectomy History of back surgery Social History Social History Household Members: None Housing: Apartment Do you presently have visiting nurse or other home services: No Alcohol intake: never Comment: seizure precations Patient Tobacco Use Status: Current everyday Tobacco user Tobacco use type: Cigarette Cigarette Packs Per Day: 1 Cigarettes Per Day: 6 Years Smoked: 30 e-Cigarette/Vaping Use: Never Used Second Hand Smoke Exposure: Yes Substance Use Type: Former Substance User service: No Current occupational status: disabled Cognitive needs: No Hearing needs: No Vision needs: No
[2025-08-02] MEDS: methADONE HCl 20 MG/2 ML ORAL.CONC 75 MG PO (12:17)
--- NOTE | 2025-08-02 12:45 | P.CONAN_ITS ---
HPI - Anesthesia Eval Consult details Narrative: 59 yo F presenting for right femur IM nail. On methadone. Hx of CVA with residual RUE weakness/contracture. PMFSH Active Problems Active Problems: All Active Problems Opioid use disorder, moderate, in sustained remission (Acute) Fall from standing (Acute) Closed intertrochanteric fracture of right femur (Acute) Closed intertrochanteric fracture of right hip (Acute) Fall (Acute) Seizure (Acute) Major depressive disorder, single episode with anxious distress (Acute) Obesity (BMI 30.0-34.9) (Acute) Endogenous depression (Acute) Elevated cholesterol (Acute) Drug abuse (Acute) CVA (cerebral vascular accident) (Acute) Generalized anxiety disorder (Acute) Benign essential HTN (Acute) Screening for colon cancer (Acute) Past Medical History Medical History Fall Hx of ectopic Elevated cholesterol Lab test negative for COVID-19 virus Drug abuse Seizure CVA (cerebral vascular accident) Positive colorectal cancer screening using Cologuard test Benign essential HTN Endogenous depression Family History Family History Father Alive and well Mother Alive and well Family history of problems with anesthesia: No Surgical History Surgical History H/O colonoscopy (~10/13/20) Hx of unilateral oophorectomy History of back surgery History of Problems with Anesthesia: No Social History Social History Household Members: None Housing: Apartment Do you presently have visiting nurse or other home services: No Alcohol intake: never Comment: seizure precations Patient Tobacco Use Status: Current everyday Tobacco user Tobacco use type: Cigarette Cigarette Packs Per Day: 1 Cigarettes Per Day: 6 Years Smoked: 30 e-Cigarette/Vaping Use: Never Used Second Hand Smoke Exposure: Yes Substance Use Type: Former Substance User service: No Current occupational status: disabled Cognitive needs: No Hearing needs: No Vision needs: No Meds Allergies Allergy/AdvReac Type Severity Reaction Status Date / Time No Known Allergies Allergy Mild NOT Verified 08/01/25 07:03 APPLICABLE Active Medications: Current Medications Acetaminophen (Acetaminophen 325 Mg Tablet) 975 mg PO Q6H [facility] Last Admin: 08/02/25 10:18 Dose: Not Given Aspirin (Aspirin Enteric Coated 81 Mg Tablet.Dr) 81 mg PO DAILY [facility] On Hold: 08/02/25 09:00 Last Admin: 08/02/25 07:10 Dose: Not Given Atorvastatin Calcium (Atorvastatin Calcium 40 Mg Tablet) 40 mg PO DAILY [facility] Last Admin: 08/02/25 08:46 Dose: 40 mg Enoxaparin Sodium (Enoxaparin Sodium 40 Mg/0.4 Ml Syringe) 40 mg SUBCUT Q12H [facility] Last Admin: 08/02/25 07:10 Dose: Not Given Escitalopram Oxalate (Escitalopram Oxalate 10 Mg Tablet) 10 mg PO DAILY [facility] Last Admin: 08/02/25 08:46 Dose: 10 mg Hydromorphone HCl (Hydromorphone Hcl 1 Mg/Ml Syringe) 1 mg IVPUSH Q4H PRN; Protocol PRN Reason: Pain, Severe (Pain Scale 7-10) Last Admin: 08/02/25 09:12 Dose: 1 mg Levetiracetam (Levetiracetam 500 Mg Tablet) 500 mg PO BID [facility] Last Admin: 08/02/25 08:46 Dose: 500 mg Lidocaine (Lidocaine 4 % Patch Adh..Patch) 2 patch TRANSDERMA DAILY [facility]; Protocol Last Admin: 08/02/25 08:46 Dose: 1 patch Lisinopril (Lisinopril 10 Mg Tablet) 10 mg PO DAILY [facility]; Protocol Last Admin: 08/02/25 09:03 Dose: Not Given Magnesium Oxide (Magnesium Oxide 400 Mg Tablet) 400 mg PO BIDPC [facility] Last Admin: 08/02/25 08:46 Dose: 400 mg Methocarbamol (Methocarbamol 500 Mg Tablet) 500 mg PO QID [facility] Last Admin: 08/02/25 08:46 Dose: 500 mg Mirtazapine (Mirtazapine 15 Mg Tablet) 15 mg PO BEDTIME [facility] Last Admin: 08/01/25 20:14 Dose: 15 mg Oxycodone HCl (Oxycodone Hcl Immed Release 5 Mg Tablet) 10 mg PO Q6H PRN PRN Reason: Pain, Moderate(Pain Scale 4-6) Ropinirole HCl (Ropinirole Hcl 1 Mg Tablet) 3 mg PO BEDTIME [facility] Last Admin: 08/01/25 20:13 Dose: 3 mg Home Medications ?Medication ?Instructions ?Recorded ?Confirmed ?Last Taken ?Type aspirin 81 mg tablet,delayed 81 mg PO DAILY 08/26/20 1 10/02/24 07/31/25 History release methadone 10 mg/mL oral concentrate 175 mg PO DAILY 08/01/25 07/31/25 07:00 History Exam Exam Date and Time: 08/02/25 1245 Height,Weight and Vital Signs: Height 5 ft 2 in Weight 70.7 kg Last Vital Signs Temp 97.4 F 08/02/25 12:54 Pulse 55 08/02/25 12:54 Resp 16 08/02/25 12:54 BP 135/55 L 08/02/25 12:54 Pulse Ox 95 08/02/25 12:54 O2 Del Method Room Air 08/02/25 12:54 Pertinent Lab Results Pertinent Lab Results: Laboratory Tests 08/01/25 08/01/25 08/01/25 07:15 07:16 18:40 WBC 10.6 RBC 3.81 L Hgb 12.0 Hct 36.3 L MCV 95.3 MCH 31.5 MCHC 33.1 RDW 12.6 Plt Count 153 L MPV 10.0 Immature Gran % (Auto) 1.1 H Neut % (Auto) 82.3 H Lymph % (Auto) 13.4 L [place] % (Auto) 2.4 Eos % (Auto) 0.6 Baso % (Auto) 0.2 Lymph # (Auto) 1.4 [place] # (Auto) 0.3 Eos # (Auto) 0.1 Baso # (Auto) 0.0 Abs Immat Gran (auto) 0.12 H Absolute Neuts (auto) 8.7 H Absolute Nucleated RBC 0.000 Nucleated RBC % (auto) 0.0 PT 11.8 INR 1.0 Sodium 140 Potassium 3.4 Chloride 104 Carbon Dioxide 25 Anion Gap 14 BUN 12 Creatinine 0.84 Estim Creat Clear Calc 66.4 Estimated GFR > 60 Random Glucose 208 H Calcium 9.2 Magnesium Total Bilirubin 0.3 AST 17 ALT 6 Alkaline Phosphatase 97 Troponin I High Sens < 2.7 NT-Pro-B Natriuret Pep 229.5 Total Protein 7.2 Albumin 4.0 TSH 1.98 Urine Color Yellow Urine Appearance Clear Urine pH 6.5 Ur Specific [place] 1.020 Urine Protein Trace Urine Glucose (UA) Negative Urine Ketones Negative Urine Blood Trace H Urine Nitrite Negative Ur Leukocyte Esterase Negative Urine RBC 6-10 H Urine WBC 0-5 Ur Squamous Epith Cells 0-2 Urine Bacteria None Seen Hyaline Casts 0-2 Urine Opiates Screen POSITIVE H Ur Buprenorphine Scrn Not Detected Ur Oxycodone Screen Not Detected Urine Methadone Screen Positive H Urine Fentanyl Screen POSITIVE H Ur Barbiturates Screen Not Detected Ur Phencyclidine Scrn Not Detected Ur Amphetamines Screen Not Detected U Benzodiazepines Scrn Not Detected Urine Cocaine Screen Not Detected U Marijuana (THC) Screen Not Detected Ethyl Alcohol < 10 Blood Type Antibody Screen 08/02/25 08/02/25 05:48 09:29 WBC 5.4 RBC 3.11 L Hgb 9.5 L D Hct 29.7 L MCV 95.5 MCH 30.5 MCHC 32.0 RDW 12.8 Plt Count 156 L MPV 10.6 Immature Gran % (Auto) 0.4 Neut % (Auto) 64.8 Lymph % (Auto) 26.7 [place] % (Auto) 7.0 Eos % (Auto) 0.7 Baso % (Auto) 0.4 Lymph # (Auto) 1.4 [place] # (Auto) 0.4 Eos # (Auto) 0.0 Baso # (Auto) 0.0 Abs Immat Gran (auto) 0.02 Absolute Neuts (auto) 3.5 Absolute Nucleated RBC 0.000 Nucleated RBC % (auto) 0.0 PT INR Sodium 137 Potassium 3.6 Chloride 105 Carbon Dioxide 25 Anion Gap 11 L BUN 12 Creatinine 0.89 Estim Creat Clear Calc 62.6 Estimated GFR > 60 Random Glucose 124 H Calcium 8.4 D Magnesium 2.3 Total Bilirubin 0.4 AST 19 ALT < 6 Alkaline Phosphatase 70 Troponin I High Sens NT-Pro-B Natriuret Pep Total Protein 5.8 L Albumin 3.1 L TSH Urine Color Urine Appearance Urine pH Ur Specific [place] Urine Protein Urine Glucose (UA) Urine Ketones Urine Blood Urine Nitrite Ur Leukocyte Esterase Urine RBC Urine WBC Ur Squamous Epith Cells Urine Bacteria Hyaline Casts Urine Opiates Screen Ur Buprenorphine Scrn Ur Oxycodone Screen Urine Methadone Screen Urine Fentanyl Screen Ur Barbiturates Screen Ur Phencyclidine Scrn Ur Amphetamines Screen U Benzodiazepines Scrn Urine Cocaine Screen U Marijuana (THC) Screen Ethyl Alcohol Blood Type AB Positive Antibody Screen NEGATIVE Airway Mallampati Class: II TM Dist: <=3cm Neck ROM: Full Loose/Missing/Broken Teeth: Yes (multiple missing teeth) Heart: S1S2 Lungs: Bilateral crackles Assessment and Plan Assessment Anesthesia Assessment: Anesthesia Plan Discussed and Chart Reviewed Final Anesthetic Review Family History of Problems with Anesthesia: No History of Problems with Anesthesia: No NPO: Yes ASA Class: III Final Preanesthetic Review: No Changes in Pt Med Stat, Meds/Allgs Chart Reviewed, Consent Obtained/Reviewed and Anes Risks/Benef Reviewed Patient Risk: Intermediate Procedure Risk: Intermediate Anesthetic Plan Anesthetic Plan: GA and Agree w/ Assess. and Plan Disposition: Standard PACU
--- NOTE | 2025-08-02 12:51 | MHC.SHP ---
Pre-Procedural Eval Section A - 24 Hr Update-Section A only Date of Service: 08/02/25 The patient is an INPATIENT: Yes Changes since office visit: No Cold of Flu in the past 2 weeks, No New Medical Problems, No Changes in Medication and No Patient answered all questions The patient has been examined within 24 hours of the surgical procedure. The History & Physical has been completed within 30 days and I have reviewed it.: Yes Section B - Complete if H&P > 30 days Chief Complaint: R hip fracture Allergies: Allergies Allergy/AdvReac Type Severity Reaction Status Date / Time No Known Allergies Allergy Mild NOT Verified 08/01/25 07:03 APPLICABLE Plan I have reviewed the history and physical and performed a pertinent physical examination on my patient. No changes have occurred unless specified. Time Spent With Patient Time: Total time managing care of this patient today ____ minutes.
--- NOTE | 2025-08-02 13:07 | MHC.RECOVRN ---
ALFONSO called [facility] to confirm last dose. Per Ismael @ [facility], last dose of methadone was 07/31/25 @ 0700, 175mg
--- NOTE | 2025-08-02 14:38 | MHC.CM.PN ---
Attempted CM assessment. Patient off unit for procedure.
[2025-08-02] MEDS: Lactated Ringers 1,000 ML 100 ML IVCONT (15:38)
[2025-08-02] MEDS: 0.9 % Sodium Chloride Flush 3 ML SYRINGE IVFLUSH (15:41)
--- NOTE | 2025-08-02 16:27 | P.PNIM_ITS ---
Subjective Subjective Date of Service: 08/02/25 Interval History: seen and examined this morning follow up for fracture plan for surgery today pt awake, alert; denies cp, sob, dizziness, nause and vomiting Review of Systems Review of Systems: Yes all other systems are reviewed and are negative Constitutional Constitutional: Denies chills and Denies fever(s) Cardiovascular Cardiovascular: Denies chest pain, Denies claudication and Denies dyspnea Respiratory Respiratory: Denies dyspnea Gastrointestinal Gastrointestinal: Denies abdominal pain, Denies nausea and Denies vomiting Physical Exam 2 Vital Signs: Vital Signs: Last Vital Signs Temp 97.8 F 08/02/25 16:00 Pulse 61 08/02/25 16:00 Resp 19 08/02/25 16:00 BP 177/83 H 08/02/25 16:00 Pulse Ox 95 08/02/25 16:00 O2 Del Method Room Air 08/02/25 16:00 O2 Flow Rate 6 08/02/25 14:00 BMI result Body Mass Index 28.5 Objective Data Active Medications Acetaminophen (Acetaminophen 325 Mg Tablet) 975 mg PO Q6H [facility] Last Admin: 08/02/25 10:18 Dose: Not Given Documented By: FARZANEH Non-Admin Reason: max dose exceeded Atorvastatin Calcium (Atorvastatin Calcium 40 Mg Tablet) 40 mg PO DAILY [facility] Last Admin: 08/02/25 08:46 Dose: 40 mg Documented By: FARZANEH Enoxaparin Sodium (Enoxaparin Sodium 40 Mg/0.4 Ml Syringe) 40 mg SUBCUT Q24H [facility] Escitalopram Oxalate (Escitalopram Oxalate 10 Mg Tablet) 10 mg PO DAILY [facility] Last Admin: 08/02/25 08:46 Dose: 10 mg Documented By: FARZANEH Hydromorphone HCl (Hydromorphone Hcl 1 Mg/Ml Syringe) 1 mg IVPUSH Q4H PRN; Protocol PRN Reason: Pain, Severe (Pain Scale 7-10) Last Admin: 08/02/25 09:12 Dose: 1 mg Documented By: FARZANEH Lactated Ringer's (Lr) 1,000 mls @ 100 mls/hr IVCONT .Q10H [facility] Stop: 08/03/25 15:00 Last Admin: 08/02/25 15:38 Dose: 100 mls/hr Documented By: FARZANEH Cefazolin Sodium/Dextrose (Ancef) 2 gm in 50 mls @ 100 mls/hr IV POSTOP@1900 ONE Stop: 08/02/25 19:29 Levetiracetam (Levetiracetam 500 Mg Tablet) 500 mg PO BID [facility] Last Admin: 08/02/25 08:46 Dose: 500 mg Documented By: FARZANEH Lidocaine (Lidocaine 4 % Patch Adh..Patch) 2 patch TRANSDERMA DAILY [facility]; Protocol Last Admin: 08/02/25 08:46 Dose: 1 patch Documented By: FARZANEH Comments: pt requested just 1 patch Lisinopril (Lisinopril 10 Mg Tablet) 10 mg PO DAILY [facility]; Protocol Last Admin: 08/02/25 09:03 Dose: Not Given Documented By: FARZANEH Non-Admin Reason: surgery Magnesium Oxide (Magnesium Oxide 400 Mg Tablet) 400 mg PO BIDPC [facility] Last Admin: 08/02/25 08:46 Dose: 400 mg Documented By: FARZANEH Methadone HCl (Methadone Hcl 20 Mg/2 Ml Oral.Conc) 175 mg PO DAILY@0800 [facility] Methocarbamol (Methocarbamol 500 Mg Tablet) 500 mg PO QID [facility] Last Admin: 08/02/25 15:37 Dose: Not Given Documented By: FARZANEH Non-Admin Reason: in or Mirtazapine (Mirtazapine 15 Mg Tablet) 15 mg PO BEDTIME [facility] Last Admin: 08/01/25 20:14 Dose: 15 mg Documented By: ADAN Oxycodone HCl (Oxycodone Hcl Immed Release 5 Mg Tablet) 10 mg PO Q6H PRN PRN Reason: Pain, Moderate(Pain Scale 4-6) Ropinirole HCl (Ropinirole Hcl 1 Mg Tablet) 3 mg PO BEDTIME [facility] Last Admin: 08/01/25 20:13 Dose: 3 mg Documented By: ADAN Sodium Chloride (0.9 % Sodium Chloride Flush 3 Ml Syringe) 3 ml IVFLUSH QSHIFT [facility] Last Admin: 08/02/25 15:41 Dose: 3 ml Documented By: FARZANEH Labs 08/02/25 05:48 08/02/25 05:48 Labs: Laboratory Results - last 24 hr 08/01/25 08/01/25 08/02/25 07:16 18:40 05:48 MCV 95.5 MCH 30.5 MCHC 32.0 RDW 12.8 Plt Count 156 L MPV 10.6 Immature Gran % (Auto) 0.4 Neut % (Auto) 64.8 Lymph % (Auto) 26.7 [place] % (Auto) 7.0 Eos % (Auto) 0.7 Baso % (Auto) 0.4 Lymph # (Auto) 1.4 [place] # (Auto) 0.4 Eos # (Auto) 0.0 Baso # (Auto) 0.0 Abs Immat Gran (auto) 0.02 Absolute Neuts (auto) 3.5 Absolute Nucleated RBC 0.000 Nucleated RBC % (auto) 0.0 Anion Gap 11 L Estim Creat Clear Calc 62.6 Estimated GFR > 60 Random Glucose 124 H Calcium 8.4 D Magnesium 2.3 Total Bilirubin 0.4 AST 19 ALT < 6 Alkaline Phosphatase 70 NT-Pro-B Natriuret Pep 229.5 Total Protein 5.8 L Albumin 3.1 L Urine Color Yellow Urine Appearance Clear Urine pH 6.5 Ur Specific [place] 1.020 Urine Protein Trace Urine Glucose (UA) Negative Urine Ketones Negative Urine Blood Trace H Urine Nitrite Negative Ur Leukocyte Esterase Negative Urine RBC 6-10 H Urine WBC 0-5 Ur Squamous Epith Cells 0-2 Urine Bacteria None Seen Hyaline Casts 0-2 Urine Opiates Screen POSITIVE H Ur Buprenorphine Scrn Not Detected Ur Oxycodone Screen Not Detected Urine Methadone Screen Positive H Urine Fentanyl Screen POSITIVE H Ur Barbiturates Screen Not Detected Ur Phencyclidine Scrn Not Detected Ur Amphetamines Screen Not Detected U Benzodiazepines Scrn Not Detected Urine Cocaine Screen Not Detected U Marijuana (THC) Screen Not Detected Ethyl Alcohol < 10 Blood Type Antibody Screen 08/02/25 09:29 MCV MCH MCHC RDW Plt Count MPV Immature Gran % (Auto) Neut % (Auto) Lymph % (Auto) [place] % (Auto) Eos % (Auto) Baso % (Auto) Lymph # (Auto) [place] # (Auto) Eos # (Auto) Baso # (Auto) Abs Immat Gran (auto) Absolute Neuts (auto) Absolute Nucleated RBC Nucleated RBC % (auto) Anion Gap Estim Creat Clear Calc Estimated GFR Random Glucose Calcium Magnesium Total Bilirubin AST ALT Alkaline Phosphatase NT-Pro-B Natriuret Pep Total Protein Albumin Urine Color Urine Appearance Urine pH Ur Specific [place] Urine Protein Urine Glucose (UA) Urine Ketones Urine Blood Urine Nitrite Ur Leukocyte Esterase Urine RBC Urine WBC Ur Squamous Epith Cells Urine Bacteria Hyaline Casts Urine Opiates Screen Ur Buprenorphine Scrn Ur Oxycodone Screen Urine Methadone Screen Urine Fentanyl Screen Ur Barbiturates Screen Ur Phencyclidine Scrn Ur Amphetamines Screen U Benzodiazepines Scrn Urine Cocaine Screen U Marijuana (THC) Screen Ethyl Alcohol Blood Type AB Positive Antibody Screen NEGATIVE Assessment and Plan (1) Closed intertrochanteric fracture of right hip: Status: Acute Plan This is a 59-year-old female with PMH of prior CVA with residual right-sided deficits, generalized seizure on keppra, HTN, GALILEO on methadone, anxiety, depression who presented after mechanical fall found to have right hip fracture. Mechanical fall causing right-sided acute subcapital fracture of the right hip ortho following, plan for surgery today Pain control DVT prophylaxis with the SCD boots in the anticipation of surgical management in the a.m. [id number]-moderate risk for surgery QTC prolongation-status post magnesium repeat EKG with qtc around 500 appears somewhat chronic likely due to methadone sinus bradycardia likely due to methadone monitor closely bp stable and pt asymptomatic acute anemia likely combination of dilution from IVF and some blood loss from acute fracture follow CBC Prior CVA residual right arm weakness continue statin ASA d/c for planned procedure, will need to be resumed when safe from medical perspective seizure disorder continue Keppra seizure precautions GALILEO seen by addiction medicine, received partial dose of methadone today due to bradycardia; resume baseline dose in am Utox +for methadone and fentanyl (got fentanyl in ambulance car [employer]) no drug use in several years Anxiety and depressin Cont home meds DVT px- scd boots This note is constructed using voice recognition software. While every effort has been made to ensure accuracy, computer aided design technician errors may have been included. Quality Stroke Does the patient have a stroke diagnosis?: No VTE Prior VTE?: No VTE Risk Level:: Medical - moderate - high VTE Device Contraindication: N/A - Device Ordered VTE Drug Contraindication: N/A - Med Ordered
[2025-08-02] MEDS: oxyCODONE HCl Immed Release 5 MG TABLET 10 MG PO ×2 (16:32→23:15)
[2025-08-03] VITALS (9 sets, daily range): BP systolic 103–156; BP diastolic 48–67; PULSE 53–83; RESP 15–18; TEMP 36–36.3; O2SAT 94–996
[2025-08-03] MEDS: Lactated Ringers 1,000 ML 100 ML IVCONT ×2 (01:50→10:33)
[2025-08-03 06:16] LABS: MANUAL DIFF FLAG NO
[2025-08-03 06:22] LABS: Hematocrit 25.9 % (37.0-47.0); Hemoglobin 8.4 g/dl (12.0-16.0); Imm Gran Abs Auto 0.02 X10*3/uL (0.00-0.03); Imm Gran Pct Auto 0.3 % (0.0-0.4); Lymphocytes Absolute Auto 1.2 X10*3/uL (1.2-4.9); Mean Corpuscular HGB Conc 32.4 g/dl (31.0-35.0); Mean Corpuscular Hemoglobin 30.5 pg (27.0-33.0); Mean Corpuscular Volume 94.2 fL (80.0-98.0); NRBC Abs Auto 0.000 X10*3/uL (0.0-0.012); NRBC Pct Auto 0.0 /100WBC (0.0-0.2); Platelet Count 155 X10*3/uL (160-400); Red Blood Count 2.75 X10*6/uL (4.20-5.50); White Blood Count 6.1 X10*3/uL (4.8-10.8)
[2025-08-03 06:37] LABS: Alanine Aminotransferase < 6 U/L (0-31); Albumin Level 3.1 g/dL (3.5-5.0); Alkaline Phosphatase 68 U/L (39-117); Anion Gap 10 (12-20); Aspartate Amino Transferase 19 U/L (5-31); Blood Urea Nitrogen 11 mg/dL (9-16); Calcium 8.4 mg/dL (8.4-10.2); Carbon Dioxide 24 mmol/L (22-29); Chloride 107 mmol/L (96-108); Creatinine Clr Calc Pharmacy 74.4; Estimated Glomerular Filt Rate > 60; Magnesium 2.0 mg/dL (1.6-2.6); Potassium 4.3 mmol/L (3.3-5.1); Sodium 137 mmol/L (135-145); Total Protein 5.9 g/dL (6.5-8.0)
[2025-08-03] MEDS: oxyCODONE HCl Immed Release 5 MG TABLET 10 MG PO ×5 (07:24→23:17)
[2025-08-03] MEDS: Lidocaine 4 % Patch ADH..PATCH 2 PATCH TRANSDERMA (07:25)
[2025-08-03] MEDS: methADONE HCl 20 MG/2 ML ORAL.CONC 175 MG PO (07:34)
--- NOTE | 2025-08-03 08:43 | HO.POSTANES ---
Post Anesthesia Evaluation Post Anesthesia Evaluation Date of Service: 08/03/25 Vital Signs: Vital Signs Temp Pulse Resp BP Pulse Ox O2 Del Method 08/03/25 07:00 97.0 F 60 16 126/58 L 95 Room Air 08/03/25 03:00 97 F 59 16 132/62 95 Room Air 08/02/25 23:13 97.1 F 71 17 132/64 95 Room Air 08/02/25 22:00 97.0 F 78 19 125/75 95 Room Air Anesthesia: General Mental Status: Awake Pain Control: Satisfactory Nausea/Vomiting: None Hydration: Adequate Anesthesia-Related Issues: No Anes. Related Issues
--- NOTE | 2025-08-03 10:11 | PM.PNORT ---
Subjective Subjective Date of Service: 08/03/25 Interval history: Postop day 1 status post right hip IM nail Patient resting comfortably in bed this morning Pain well managed No acute events overnight No other acute complaints or concerns at this time Physical Exam Vital Signs: Vital Signs: Last Vital Signs Temp 97.0 F 08/03/25 07:00 Pulse 60 08/03/25 09:07 Resp 16 08/03/25 07:00 BP 126/58 L 08/03/25 09:07 Pulse Ox 95 08/03/25 09:07 O2 Del Method Room Air 08/03/25 07:00 O2 Flow Rate 6 08/02/25 14:00 BMI result Body Mass Index 28.5 Extrem: Other: Dressing on right hip clean, dry, intact No evidence of surrounding erythema, ecchymosis No evidence of infection Patient is able to flex and extend the digits of the left foot without difficulty Compartments soft, nontender Distal sensation intact Capillary refill brisk Procedures Date of Service Date of Service: 08/03/25 Progress Note: A&P Assessment and plan (1) Closed intertrochanteric fracture of right femur: Status: Acute Plan 1. Status post right hip IM nail DOS 08/02/2025 Continue pain management Begin Lovenox for DVT prophylaxis, total duration of 6 weeks Patient's H&H this morning 8.4/25.9, continue monitoring for need for potential transfusion PT/OT eval pending Dispo planning-medical clearance, PT/OT eval, likely rehab placement Time Spent With Patient Time: Total time managing care of this patient today ____ minutes. Quality Stroke Does the patient have a stroke diagnosis?: No VTE Prior VTE?: No VTE Risk Level:: Medical - moderate - high VTE Device Contraindication: N/A - Device Ordered VTE Drug Contraindication: N/A - Med Ordered
--- NOTE | 2025-08-03 15:17 | PC.NURSE ---
Took over care of patient. Patient sitting up in chair, eyes closed, unlabored breathing. IV fluids running LR at 100mL/hr. Chair alarm on, call kiran within reach.
--- NOTE | 2025-08-03 15:40 | HO.PM.IMPN ---
Subjective Subjective Date of Service: 08/03/25 Interval History: seen and examined this morning follow up for fall, right hip fracture no overnight events Review of Systems Review of Systems: Yes all other systems are reviewed and are negative Constitutional Constitutional: Denies chills and Reports fever(s) Cardiovascular Cardiovascular: Denies chest pain and Denies palpitations Endocrine Endocrine: Denies palpitations Physical Exam Vital Signs: Vital Signs: Last Vital Signs Temp 96.8 F 08/03/25 11:00 Pulse 56 08/03/25 11:00 Resp 18 08/03/25 11:00 BP 104/54 L 08/03/25 11:00 Pulse Ox 96 08/03/25 11:00 O2 Del Method Room Air 08/03/25 11:00 O2 Flow Rate 6 08/02/25 14:00 BMI result Body Mass Index 28.5 Const: General: cooperative, comfortable, alert and awake Nutritional Appearance: average body habitus Orientation/consciousness: patient oriented x3 Resp: Effort & Inspection: normal respiratory effort, able to speak in complete sentences, no respiratory distress and no use of accessory muscles Cardio: Rate: regular rate GI: Inspection: No distended Palpation (GI): Soft to palpation and nontender Neuro: General: patient oriented x3, moves all extremities and CN's II-XI intact bilaterally Objective Data Active Medications Acetaminophen (Acetaminophen 325 Mg Tablet) 975 mg PO Q6H [facility] Last Admin: 08/03/25 10:32 Dose: 975 mg Documented By: CINDY Atorvastatin Calcium (Atorvastatin Calcium 40 Mg Tablet) 40 mg PO DAILY [facility] Last Admin: 08/03/25 07:25 Dose: 40 mg Documented By: CINDY Enoxaparin Sodium (Enoxaparin Sodium 40 Mg/0.4 Ml Syringe) 40 mg SUBCUT Q24H [facility] Last Admin: 08/03/25 14:26 Dose: 40 mg Documented By: CINDY Escitalopram Oxalate (Escitalopram Oxalate 10 Mg Tablet) 10 mg PO DAILY [facility] Last Admin: 08/03/25 07:25 Dose: 10 mg Documented By: CINDY Hydromorphone HCl (Hydromorphone Hcl 1 Mg/Ml Syringe) 1 mg IVPUSH Q4H PRN; Protocol PRN Reason: Pain, Severe (Pain Scale 7-10) Last Admin: 08/03/25 09:38 Dose: 1 mg Documented By: CINDY Levetiracetam (Levetiracetam 500 Mg Tablet) 500 mg PO BID [facility] Last Admin: 08/03/25 07:25 Dose: 500 mg Documented By: CINDY Lidocaine (Lidocaine 4 % Patch Adh..Patch) 2 patch TRANSDERMA DAILY [facility]; Protocol Last Admin: 08/03/25 07:25 Dose: 1 patch Documented By: CINDY Lisinopril (Lisinopril 10 Mg Tablet) 10 mg PO DAILY [facility]; Protocol Last Admin: 08/03/25 07:25 Dose: 10 mg Documented By: CINDY Magnesium Oxide (Magnesium Oxide 400 Mg Tablet) 400 mg PO BIDPC [facility] Last Admin: 08/03/25 07:25 Dose: 400 mg Documented By: CINDY Methadone HCl (Methadone Hcl 20 Mg/2 Ml Oral.Conc) 175 mg PO DAILY@0800 [facility] Last Admin: 08/03/25 07:34 Dose: 175 mg Documented By: CINDY Co-signed By: JAMMIE Mirtazapine (Mirtazapine 15 Mg Tablet) 15 mg PO BEDTIME [facility] Last Admin: 08/02/25 20:31 Dose: 15 mg Documented By: ADAN Oxycodone HCl (Oxycodone Hcl Immed Release 5 Mg Tablet) 10 mg PO Q4H PRN PRN Reason: Pain, Moderate(Pain Scale 4-6) Last Admin: 08/03/25 14:26 Dose: 10 mg Documented By: CINDY Ropinirole HCl (Ropinirole Hcl 1 Mg Tablet) 3 mg PO BEDTIME [facility] Last Admin: 08/02/25 20:31 Dose: 3 mg Documented By: ADAN Sodium Chloride (0.9 % Sodium Chloride Flush 3 Ml Syringe) 3 ml IVFLUSH QSHIFT [facility] Last Admin: 08/03/25 07:37 Dose: Not Given Documented By: CINDY Non-Admin Reason: IV Running Labs 08/03/25 05:59 08/03/25 05:59 Labs: Laboratory Results - last 24 hr 08/03/25 05:59 MCV 94.2 MCH 30.5 MCHC 32.4 RDW 12.4 Plt Count 155 L MPV 10.4 Immature Gran % (Auto) 0.3 Neut % (Auto) 73.4 H Lymph % (Auto) 19.0 L [place] % (Auto) 6.9 Eos % (Auto) 0.2 Baso % (Auto) 0.2 Lymph # (Auto) 1.2 [place] # (Auto) 0.4 Eos # (Auto) 0.0 Baso # (Auto) 0.0 Abs Immat Gran (auto) 0.02 Absolute Neuts (auto) 4.5 Absolute Nucleated RBC 0.000 Nucleated RBC % (auto) 0.0 Anion Gap 10 L Estim Creat Clear Calc 74.4 Estimated GFR > 60 Random Glucose 116 H Fasting Glucose 116 H Calcium 8.4 Magnesium 2.0 Total Bilirubin 0.3 AST 19 ALT < 6 Alkaline Phosphatase 68 Total Protein 5.9 L Albumin 3.1 L Assessment and Plan (1) Closed intertrochanteric fracture of right hip: Status: Acute Plan This is a 59-year-old female with PMH of prior CVA with residual right-sided deficits, generalized seizure on keppra, HTN, GALILEO on methadone, anxiety, depression who presented after mechanical fall found to have right hip fracture. Mechanical fall causing right-sided acute subcapital fracture of the right hip POD #1 s/p right hip IM nail continue pain control DVT prophylaxis lovenox PT rec STR QTC prolongation-status post magnesium repeat EKG with qtc around 500 appears somewhat chronic likely due to methadone sinus bradycardia HR improved likely due to methadone bp stable and pt asymptomatic acute anemia likely combination of dilution from IVF and some blood loss from acute fracture no indication for blood transfusion at this time trend CBC thrombocytopenia platelets stable for now follow levels Prior CVA residual right arm weakness continue statin ASA d/c for planned procedure, will need to be resumed when safe from medical perspective seizure disorder continue Keppra seizure precautions GALILEO seen by addiction medicine, received partial dose of methadone 12/ due to bradycardia; resumed on baseline dose today Utox +for methadone and fentanyl (got fentanyl in ambulance [employer]) no drug use in several years Mood Cont home meds DVT px- lovenox dispo: STR patient will likely require 2 midnight stay in the hospital for management of hip fracture, close monitoring of anemia with potential need for blood transfusion, postoperative care, safe disposition Quality Stroke Does the patient have a stroke diagnosis?: No VTE Prior VTE?: No VTE Risk Level:: Medical - moderate - high VTE Device Contraindication: N/A - Device Ordered VTE Drug Contraindication: N/A - Med Ordered
--- NOTE | 2025-08-03 16:18 | MHC.CM.PN ---
Addendum entered by Mihceline Hammond 08/04/25 13:23: STR RECOMMENDED PT AGREEABLE REFERRALS MADE Original Note: PT REPORTS SHE LIVES ALONE AND IS INDEPENDENT WITH CARE SHE HAS NO SERVICES OR DME AT BASELINE COPY OF HCP REQUESTED, PT REPORTS HER SISTER IS HER AGENT PCP: FLAVIO REAVES [facility] DELIVERED DCP TBD PENDING PT EVAL LIKELY STR
[2025-08-03] MEDS: Ferrous Sulfate 324 MG TABLET.DR PO (19:01)
[2025-08-03] MEDS: 0.9 % Sodium Chloride Flush 3 ML SYRINGE IVFLUSH (21:02)
[2025-08-04] VITALS (13 sets, daily range): BP systolic 107–180; BP diastolic 53–79; PULSE 57–98; RESP 18; TEMP 36.2–37.1; O2SAT 94–98
--- NOTE | 2025-08-04 | ECG_ITS ---
Test Reason : Prolonged QTc Blood Pressure : */* mmHG Vent. Rate : 57 BPM Atrial Rate : 57 BPM P-R Int : 144 ms QRS Dur : 74 ms QT Int : 548 ms P-R-T Axes : 73 18 93 degrees QTcB Int : 533 ms Sinus bradycardia Anterior infarct , age undetermined Prolonged QT Abnormal ECG When compared with ECG of 02-Aug-2025 08:15, No significant change was found Referred By: Wily Connolly Electronically Signed By: BERTIN SOOD
[2025-08-04 05:52] LABS: MANUAL DIFF FLAG NO
[2025-08-04 05:56] LABS: Hematocrit 23.5 % (37.0-47.0); Hemoglobin 7.8 g/dl (12.0-16.0); Imm Gran Abs Auto 0.02 X10*3/uL (0.00-0.03); Imm Gran Pct Auto 0.4 % (0.0-0.4); Lymphocytes Absolute Auto 1.5 X10*3/uL (1.2-4.9); Mean Corpuscular HGB Conc 33.2 g/dl (31.0-35.0); Mean Corpuscular Hemoglobin 31.5 pg (27.0-33.0); Mean Corpuscular Volume 94.8 fL (80.0-98.0); NRBC Abs Auto 0.000 X10*3/uL (0.0-0.012); NRBC Pct Auto 0.0 /100WBC (0.0-0.2); Platelet Count 129 X10*3/uL (160-400); Red Blood Count 2.48 X10*6/uL (4.20-5.50); White Blood Count 4.8 X10*3/uL (4.8-10.8)
[2025-08-04 06:14] LABS: Anion Gap 9 (12-20); Blood Urea Nitrogen 13 mg/dL (9-16); Calcium 8.1 mg/dL (8.4-10.2); Carbon Dioxide 24 mmol/L (22-29); Chloride 109 mmol/L (96-108); Creatinine Clr Calc Pharmacy 72.4; Estimated Glomerular Filt Rate > 60; Potassium 3.9 mmol/L (3.3-5.1); Sodium 138 mmol/L (135-145)
[2025-08-04] MEDS: Ferrous Sulfate 324 MG TABLET.DR PO ×2 (08:35→17:31)
[2025-08-04] MEDS: Lidocaine 4 % Patch ADH..PATCH 2 PATCH TRANSDERMA (08:36)
[2025-08-04] MEDS: methADONE HCl 20 MG/2 ML ORAL.CONC 175 MG PO (08:39)
[2025-08-04] MEDS: 0.9 % Sodium Chloride Flush 3 ML SYRINGE IVFLUSH ×3 (08:42→23:40)
--- NOTE | 2025-08-04 09:50 | HO.PM.IMPN ---
Subjective Subjective Date of Service: 08/04/25 Interval History: Pain not well controlled Complains of right hip pain extending above and below No numbness or tingling in extremities Pt had episode of vomiting after breakfast Denies any abdominal pain Review of Systems Review of Systems: Yes all other systems are reviewed and are negative Physical Exam Exam: Exam: General: AOx3, no acute distress Resp: CTA bilaterally CVS: S1, S2, RRR GI: +BS, NT, no distention Skin: Warm, dry Neuro: Cranial nerves II-XII grossly intact bilaterally. Motor grossly intact bilaterally Extremities: No edema. Right hip with appropriate tenderness at surgical sites. Surgical incision covered with clean and dry dressing. Pt capable of moving her toes. Limited mobility of RUE due to previous CVA. Psych: Appropriate affect Vital Signs: Vital Signs: Last Vital Signs Temp 98.8 F 08/04/25 07:00 Pulse 66 08/04/25 09:09 Resp 18 08/04/25 07:00 BP 167/72 H 08/04/25 09:09 Pulse Ox 97 08/04/25 07:00 O2 Del Method Room Air 08/04/25 07:00 O2 Flow Rate 6 08/02/25 14:00 BMI result Body Mass Index 28.5 Objective Data Active Medications Acetaminophen (Acetaminophen 325 Mg Tablet) 975 mg PO Q6H [facility] Last Admin: 08/04/25 06:04 Dose: 975 mg Documented By: LIT Ascorbic Acid (Ascorbic Acid 250 Mg Tablet) 250 mg PO DAILY [facility] Last Admin: 08/04/25 08:34 Dose: 250 mg Documented By: HERB Atorvastatin Calcium (Atorvastatin Calcium 40 Mg Tablet) 40 mg PO DAILY [facility] Last Admin: 08/04/25 08:34 Dose: 40 mg Documented By: HERB Enoxaparin Sodium (Enoxaparin Sodium 40 Mg/0.4 Ml Syringe) 40 mg SUBCUT Q24H [facility] Last Admin: 08/03/25 14:26 Dose: 40 mg Documented By: CINDY Escitalopram Oxalate (Escitalopram Oxalate 10 Mg Tablet) 10 mg PO DAILY [facility] Last Admin: 08/04/25 08:34 Dose: 10 mg Documented By: HERB Ferrous Sulfate (Ferrous Sulfate 324 Mg Tablet.) 324 mg PO BIDWM [facility] Last Admin: 08/04/25 08:35 Dose: 324 mg Documented By: HERB Hydromorphone HCl (Hydromorphone Hcl 1 Mg/Ml Syringe) 1 mg IVPUSH Q4H PRN; Protocol PRN Reason: Pain, Severe (Pain Scale 7-10) Last Admin: 08/04/25 07:27 Dose: 1 mg Documented By: HERB Levetiracetam (Levetiracetam 500 Mg Tablet) 500 mg PO BID [facility] Last Admin: 08/04/25 08:34 Dose: 500 mg Documented By: HERB Lidocaine (Lidocaine 4 % Patch Adh..Patch) 2 patch TRANSDERMA DAILY [facility]; Protocol Last Admin: 08/04/25 08:36 Dose: 2 patch Documented By: HERB Lisinopril (Lisinopril 10 Mg Tablet) 10 mg PO DAILY [facility]; Protocol On Hold: 08/03/25 16:12 Last Admin: 08/03/25 07:25 Dose: 10 mg Documented By: CINDY Magnesium Oxide (Magnesium Oxide 400 Mg Tablet) 400 mg PO BIDPC [facility] Last Admin: 08/04/25 08:35 Dose: 400 mg Documented By: HERB Methadone HCl (Methadone Hcl 20 Mg/2 Ml Oral.Conc) 175 mg PO DAILY@0800 [facility] Last Admin: 08/04/25 08:39 Dose: 175 mg Documented By: HERB Co-signed By: JUAN F Mirtazapine (Mirtazapine 15 Mg Tablet) 15 mg PO BEDTIME [facility] Last Admin: 08/03/25 20:48 Dose: 15 mg Documented By: LIT Oxycodone HCl (Oxycodone Hcl Immed Release 5 Mg Tablet) 10 mg PO Q4H PRN PRN Reason: Pain, Moderate(Pain Scale 4-6) Last Admin: 08/03/25 23:17 Dose: 10 mg Documented By: LIT Ropinirole HCl (Ropinirole Hcl 1 Mg Tablet) 3 mg PO BEDTIME [facility] Last Admin: 08/03/25 20:48 Dose: 3 mg Documented By: LIT Sodium Chloride (0.9 % Sodium Chloride Flush 3 Ml Syringe) [facility] Last Admin: 08/04/25 08:42 Dose: 3 ml Documented By: HERB Labs 08/04/25 05:44 08/04/25 05:44 Labs: Laboratory Results - last 24 hr 08/04/25 05:44 MCV 94.8 MCH 31.5 MCHC 33.2 RDW 12.5 Plt Count 129 L MPV 10.3 Immature Gran % (Auto) 0.4 Neut % (Auto) 61.5 Lymph % (Auto) 30.6 [place] % (Auto) 5.4 Eos % (Auto) 1.9 Baso % (Auto) 0.2 Lymph # (Auto) 1.5 [place] # (Auto) 0.3 Eos # (Auto) 0.1 Baso # (Auto) 0.0 Abs Immat Gran (auto) 0.02 Absolute Neuts (auto) 3.0 Absolute Nucleated RBC 0.000 Nucleated RBC % (auto) 0.0 Anion Gap 9 L Estim Creat Clear Calc 72.4 Estimated GFR > 60 Fasting Glucose 123 H Calcium 8.1 L Assessment and Plan (1) Closed intertrochanteric fracture of right hip: Status: Acute Plan This is a 59-year-old female with PMH of prior CVA with residual right-sided deficits, generalized seizure on keppra, HTN, GALILEO on methadone, anxiety, depression who presented after mechanical fall found to have right hip fracture. Mechanical fall causing right-sided acute subcapital fracture of the right hip POD #1 s/p right hip IM nail pain not well controlled; will increase pain meds DVT prophylaxis lovenox PT rec STR QTC prolongation-status post magnesium EKG on 08/02 with qtc around 500 appears somewhat chronic Repeat EKG 08/04 with QTc 512 Avoid QT-prolonging agents likely due to methadone sinus bradycardia HR improved likely due to methadone bp stable and pt asymptomatic acute anemia likely combination of dilution from IVF and some blood loss from acute fracture H&H dropped to 7.8/23.5 today, though no indication for blood transfusion at this time trend CBC thrombocytopenia platelets stable for now follow levels Prior CVA residual right arm weakness continue statin ASA d/c for planned procedure, will need to be resumed when safe from medical perspective seizure disorder continue Keppra seizure precautions GALILEO seen by addiction medicine, received partial dose of methadone 08/02 due to bradycardia; resumed on baseline dose today Utox +for methadone and fentanyl (got fentanyl in ambulance [employer]) no drug use in several years Mood Cont home meds DVT px- lovenox dispo: STR Pt requires continued hospitalization for management of hip fracture s/p surgical repair requiring IV pain medication and close monitoring. pt is awaiting short-term rehab placement for safe disposition. Quality Stroke Does the patient have a stroke diagnosis?: No VTE Prior VTE?: No VTE Risk Level:: Medical - moderate - high VTE Device Contraindication: N/A - Device Ordered VTE Drug Contraindication: N/A - Med Ordered
[2025-08-04] MEDS: oxyCODONE HCl Immed Release 5 MG TABLET 10 MG PO ×2 (10:34→20:19)
--- NOTE | 2025-08-04 10:55 | PM.PNORT ---
Subjective Subjective Date of Service: 08/04/25 Interval history: Postop day 2 status post right hip IM nail Patient resting comfortably in bed this morning Pain well managed No acute events overnight No other acute complaints or concerns at this time Physical Exam Vital Signs: Vital Signs: Last Vital Signs Temp 98.8 F 08/04/25 07:00 Pulse 66 08/04/25 09:09 Resp 18 08/04/25 07:00 BP 167/72 H 08/04/25 09:09 Pulse Ox 97 08/04/25 07:00 O2 Del Method Room Air 08/04/25 07:00 O2 Flow Rate 6 08/02/25 14:00 BMI result Body Mass Index 28.5 Extrem: Other: Dressings on right hip clean, dry, intact No evidence of surrounding erythema, ecchymosis No evidence of infection Patient is able to flex and extend the digits of the right foot without difficulty Compartments soft, nontender Distal sensation intact Capillary refill brisk Procedures Date of Service Date of Service: 08/04/25 Progress Note: A&P Assessment and plan (1) Closed intertrochanteric fracture of right femur: Status: Acute Plan 1. Status post right hip IM nail DOS 08/02/2025 Continue pain management Begin Lovenox for DVT prophylaxis, total duration of 6 weeks Patient's H&H this morning 7.8/23.5, this is discussed with the hospitalist for need for potential transfusion, final recommendations pending PT/OT eval complete: Recommend a short-term rehab upon discharge Dispo planning-medical clearance, PT/OT eval, rehab placement Time Spent With Patient Time: Total time managing care of this patient today ____ minutes. Quality Stroke Does the patient have a stroke diagnosis?: No VTE Prior VTE?: No VTE Risk Level:: Medical - moderate - high VTE Device Contraindication: N/A - Device Ordered VTE Drug Contraindication: N/A - Med Ordered
--- NOTE | 2025-08-04 11:07 | MHC.CLN ---
NUTRITION ALERTED BY PROVIDER THAT PATIENT WITH POOR PO. ADDING ENSURE TID TO PROMOTE NUTRITIONAL INTAKE. RD TO FOLLOW UP FOR PO INTAKE.
[2025-08-04 11:17] LABS: Albumin Level 3.0 g/dL (3.5-5.0); Magnesium 1.9 mg/dL (1.6-2.6)
--- NOTE | 2025-08-04 14:58 | MHC.RECOVRN ---
Met w/pt in f/u. Pt resting in bed calmly. Stated she is feeling much improved but continues to endorse back pain 04/08. PRN and scheduled med options reviewed. Pt has agreed to go to STR. Methadone dosing is sufficient and pt feels good in terms of that. She states she's just bummed that she is here and cannot resume her holiday shopping. In terms of mental health she is denying both depression and anxiety no I'm okay in terms of mental health pt stated.
--- NOTE | 2025-08-04 16:20 | MHC.CM.PN ---
Addendum entered by Micheline Hammond 08/06/25 16:09: PLEASE UPDATE PTS SISTER AT DC, SHE WILL BRING PTS CLOTHES TOMORROW MORNING Addendum entered by Micheline Hammond 08/06/25 14:15: CM SPOKE TO LIZABETH AT [facility] SHE PROVIDED A FAX NUMBER OF [phone] [place] FOR [facility] [place] [facility] SENT SHE STATES SHE WILL FOLLOW UP WITH [facility] CM SHE IS AWARE CM IS PLANNING DC FOR LATE TOMORROW PENDING GUEST DOSING Addendum entered by Micheline Hammond 08/06/25 13:24: [facility] RESCINDED BED OFFER AFTER REGIONAL OFFICE REVIEWED PT AWARE SHE WILL HAVE TO GO TO [place] OR [facility] RELEASES FOR METHADONE ARRANGEMENTS SIGNED AND SCANNED INTO [employer] MESSAGE LEFT FOR PTS CLINICIAN AT [facility], LIZABETH [phone] REQUESTING A RETURN CALL AND THAT GUEST DOSING ARRANGEMENTS BE INITIATED Original Note: PT WILL NEED STR AND IS ON METHADONE, HOWEVER REPORTS SOBRIETY FOR >5 YEARS [facility] WILLING TO ACCEPT PENDING CONFIRMATION OF SOBRIETY, TAKE HOMES, AND DOSING WITH [facility] PT STATES SHE WOULD PREFER [facility] DESPITE SUSTAINED SOBRIETY, SHE ONLY HAS 6 TAKE HOMES BECAUSE SHE IS ON A [place], SNF INFORMED
[2025-08-05] VITALS (12 sets, daily range): BP systolic 94–151; BP diastolic 50–70; PULSE 49–84; RESP 12–18; TEMP 36.2–36.8; O2SAT 93–99
[2025-08-05 06:01] LABS: MANUAL DIFF FLAG NO
[2025-08-05 06:21] LABS: Anion Gap 10 (12-20); Blood Urea Nitrogen 11 mg/dL (9-16); Calcium 8.4 mg/dL (8.4-10.2); Carbon Dioxide 24 mmol/L (22-29); Chloride 108 mmol/L (96-108); Creatinine Clr Calc Pharmacy 87.1; Estimated Glomerular Filt Rate > 60; Potassium 4.3 mmol/L (3.3-5.1); Sodium 138 mmol/L (135-145)
[2025-08-05 06:28] LABS: Hematocrit 24.3 % (37.0-47.0); Hemoglobin 7.8 g/dl (12.0-16.0); Imm Gran Abs Auto 0.01 X10*3/uL (0.00-0.03); Imm Gran Pct Auto 0.2 % (0.0-0.4); Lymphocytes Absolute Auto 1.2 X10*3/uL (1.2-4.9); Mean Corpuscular HGB Conc 32.1 g/dl (31.0-35.0); Mean Corpuscular Hemoglobin 30.8 pg (27.0-33.0); Mean Corpuscular Volume 96.0 fL (80.0-98.0); NRBC Abs Auto 0.000 X10*3/uL (0.0-0.012); NRBC Pct Auto 0.0 /100WBC (0.0-0.2); Platelet Count 145 X10*3/uL (160-400); Red Blood Count 2.53 X10*6/uL (4.20-5.50); White Blood Count 4.3 X10*3/uL (4.8-10.8)
[2025-08-05] MEDS: Ferrous Sulfate 324 MG TABLET.DR PO ×2 (08:15→16:27)
[2025-08-05] MEDS: Lidocaine 4 % Patch ADH..PATCH 2 PATCH TRANSDERMA (08:16)
[2025-08-05] MEDS: methADONE HCl 20 MG/2 ML ORAL.CONC 175 MG PO (08:19)
[2025-08-05] MEDS: 0.9 % Sodium Chloride Flush 3 ML SYRINGE IVFLUSH ×3 (08:24→21:16)
--- NOTE | 2025-08-05 08:43 | PM.PNORT ---
Subjective Subjective Date of Service: 08/05/25 Interval history: Postop day 3 status post right hip IM nail Patient resting comfortably in bed this morning Pain well managed No acute events overnight No other acute complaints or concerns at this time Physical Exam Vital Signs: Vital Signs: Last Vital Signs Temp 98 F 08/05/25 06:54 Pulse 62 08/05/25 06:54 Resp 17 08/05/25 06:54 BP 151/70 H 08/05/25 06:54 Pulse Ox 95 08/05/25 06:54 O2 Del Method Room Air 08/05/25 06:54 O2 Flow Rate 6 08/02/25 14:00 BMI result Body Mass Index 28.5 Extrem: Other: Proximal Dressings on right hip clean, dry, intact Most distal dressing has started to roll up No evidence of surrounding erythema, ecchymosis No evidence of infection Patient is able to flex and extend the digits of the right foot without difficulty Compartments soft, nontender Distal sensation intact Capillary refill brisk Procedures Date of Service Date of Service: 08/05/25 Progress Note: A&P Assessment and plan (1) Closed intertrochanteric fracture of right femur: Status: Acute Plan 1. Status post right hip IM nail DOS 08/02/2025 Continue pain management Continue Lovenox for DVT prophylaxis, total duration of 6 weeks Patient's H&H this morning 7.8/24.2, appears stable from yesterday PT/OT eval complete: Recommend a short-term rehab upon discharge Dispo planning-medical clearance, PT/OT eval, rehab placement Time Spent With Patient Time: Total time managing care of this patient today ____ minutes. Quality Stroke Does the patient have a stroke diagnosis?: No VTE Prior VTE?: No VTE Risk Level:: Medical - moderate - high VTE Device Contraindication: N/A - Device Ordered VTE Drug Contraindication: N/A - Med Ordered
[2025-08-05] MEDS: oxyCODONE HCl Immed Release 5 MG TABLET 10 MG PO (16:26)
[2025-08-06] VITALS (7 sets, daily range): BP systolic 114–136; BP diastolic 53–61; PULSE 50–57; RESP 14–18; TEMP 36.1–36.8; O2SAT 95–99
--- NOTE | 2025-08-06 | ECG_ITS ---
Test Reason : CHECK QTC Blood Pressure : */* mmHG Vent. Rate : 54 BPM Atrial Rate : 54 BPM P-R Int : 136 ms QRS Dur : 78 ms QT Int : 400 ms P-R-T Axes : 33 -9 115 degrees QTcB Int : 379 ms Sinus bradycardia Nonspecific T wave abnormality Abnormal ECG When compared with ECG of 04-Aug-2025 10:19, Criteria for Anterior infarct are no longer Present QT has shortened Referred By: Salena Cortes Electronically Signed By: ESME CROCKER MD
[2025-08-06] MEDS: oxyCODONE HCl Immed Release 5 MG TABLET 10 MG PO ×5 (03:19→18:38)
[2025-08-06 06:18] LABS: MANUAL DIFF FLAG NO
[2025-08-06 06:27] LABS: Hematocrit 23.0 % (37.0-47.0); Hemoglobin 7.4 g/dl (12.0-16.0); Imm Gran Abs Auto 0.01 X10*3/uL (0.00-0.03); Imm Gran Pct Auto 0.3 % (0.0-0.4); Lymphocytes Absolute Auto 1.0 X10*3/uL (1.2-4.9); Mean Corpuscular HGB Conc 32.2 g/dl (31.0-35.0); Mean Corpuscular Hemoglobin 31.2 pg (27.0-33.0); Mean Corpuscular Volume 97.0 fL (80.0-98.0); NRBC Abs Auto 0.000 X10*3/uL (0.0-0.012); NRBC Pct Auto 0.0 /100WBC (0.0-0.2); Platelet Count 143 X10*3/uL (160-400); Red Blood Count 2.37 X10*6/uL (4.20-5.50); White Blood Count 3.4 X10*3/uL (4.8-10.8)
[2025-08-06 06:44] LABS: Anion Gap 10 (12-20); Blood Urea Nitrogen 15 mg/dL (9-16); Calcium 8.0 mg/dL (8.4-10.2); Carbon Dioxide 24 mmol/L (22-29); Chloride 108 mmol/L (96-108); Creatinine Clr Calc Pharmacy 85.8; Estimated Glomerular Filt Rate > 60; Potassium 4.0 mmol/L (3.3-5.1); Sodium 138 mmol/L (135-145)
[2025-08-06] MEDS: Ferrous Sulfate 324 MG TABLET.DR PO ×2 (07:22→16:41)
--- NOTE | 2025-08-06 07:24 | P.PNIM_ITS ---
Subjective Subjective Date of Service: 08/06/25 Interval History: Pain optimally control-explained to the patient that we can not achieve full remission-patient agreeable PTOT Short-term rehab We will monitor H&H closely Voiding trials Review of Systems Review of Systems: Yes all other systems are reviewed and are negative Physical Exam 2 Exam: Exam: General: AOx3, no acute distress Resp: CTA bilaterally CVS: S1, S2, RRR GI: +BS, NT, no distention Neuro: Motor grossly intact bilaterally Extremities: Right hip with appropriate tenderness at surgical sites. Surgical incision covered with clean and dry dressing. Pt capable of moving her toes. Limited mobility of RUE due to previous CVA. Vital Signs: Vital Signs: Last Vital Signs Temp 97.1 F 08/06/25 03:21 Pulse 50 08/06/25 03:21 Resp 16 08/06/25 03:21 BP 119/56 L 08/06/25 03:21 Pulse Ox 97 08/06/25 03:21 O2 Del Method Room Air 08/06/25 03:21 O2 Flow Rate 6 08/02/25 14:00 BMI result Body Mass Index 28.5 Objective Data Active Medications Acetaminophen (Acetaminophen 325 Mg Tablet) 975 mg PO Q6H [facility] Last Admin: 08/06/25 05:24 Dose: 975 mg Documented By: JOCE Ascorbic Acid (Ascorbic Acid 250 Mg Tablet) 250 mg PO DAILY [facility] Last Admin: 08/06/25 07:22 Dose: 250 mg Documented By: CINDY Atorvastatin Calcium (Atorvastatin Calcium 40 Mg Tablet) 40 mg PO DAILY [facility] Last Admin: 08/06/25 07:22 Dose: 40 mg Documented By: CINDY Docusate Sodium (Docusate Sodium 100 Mg Capsule) 100 mg PO BID [facility] Stop: 08/07/25 09:09 Last Admin: 08/06/25 07:22 Dose: 100 mg Documented By: CINDY Enoxaparin Sodium (Enoxaparin Sodium 40 Mg/0.4 Ml Syringe) 40 mg SUBCUT Q24H [facility] Last Admin: 08/05/25 13:12 Dose: 40 mg Documented By: HERB Escitalopram Oxalate (Escitalopram Oxalate 10 Mg Tablet) 10 mg PO DAILY [facility] Last Admin: 08/06/25 07:22 Dose: 10 mg Documented By: CINDY Ferrous Sulfate (Ferrous Sulfate 324 Mg Tablet.Dr) 324 mg PO BIDWM [facility] Last Admin: 08/06/25 07:22 Dose: 324 mg Documented By: CINDY Hydromorphone HCl (Hydromorphone Hcl 1 Mg/Ml Syringe) 1.5 mg IVPUSH Q3H PRN; Protocol PRN Reason: Pain, Severe (Pain Scale 7-10) Last Admin: 08/06/25 00:08 Dose: 1.5 mg Documented By: JOCE Levetiracetam (Levetiracetam 500 Mg Tablet) 500 mg PO BID [facility] Last Admin: 08/06/25 07:22 Dose: 500 mg Documented By: CINDY Lidocaine (Lidocaine 4 % Patch Adh..Patch) 2 patch TRANSDERMA DAILY [facility]; Protocol Last Admin: 08/06/25 07:22 Dose: Not Given Documented By: CINDY Non-Admin Reason: Patient Refused Lisinopril (Lisinopril 10 Mg Tablet) 10 mg PO DAILY [facility]; Protocol On Hold: 08/03/25 16:12 Last Admin: 08/03/25 07:25 Dose: 10 mg Documented By: CINDY Magnesium Oxide (Magnesium Oxide 400 Mg Tablet) 400 mg PO BIDPC [facility] Last Admin: 08/06/25 07:22 Dose: 400 mg Documented By: CINDY Methadone HCl (Methadone Hcl 20 Mg/2 Ml Oral.Conc) 175 mg PO DAILY@0800 [facility] Last Admin: 08/05/25 08:19 Dose: 175 mg Documented By: HERB Co-signed By: CHANTEL Mirtazapine (Mirtazapine 15 Mg Tablet) 15 mg PO BEDTIME [facility] Last Admin: 08/05/25 21:10 Dose: 15 mg Documented By: JOCE Oxycodone HCl (Oxycodone Hcl Immed Release 5 Mg Tablet) 10 mg PO Q4H PRN PRN Reason: Pain, Moderate(Pain Scale 4-6) Last Admin: 08/06/25 07:21 Dose: 10 mg Documented By: CINDY Ropinirole HCl (Ropinirole Hcl 1 Mg Tablet) 3 mg PO BEDTIME [facility] Last Admin: 08/05/25 21:10 Dose: 3 mg Documented By: JOCE Sodium Chloride (0.9 % Sodium Chloride Flush 3 Ml Syringe) 3 ml IVFLUSH QSHIFT [facility] Last Admin: 08/05/25 21:16 Dose: 3 ml Documented By: JOCE Labs 08/06/25 06:02 08/06/25 06:02 Labs: Laboratory Results - last 24 hr 08/06/25 06:02 MCV 97.0 MCH 31.2 MCHC 32.2 RDW 12.6 Plt Count 143 L MPV 10.3 Immature Gran % (Auto) 0.3 Neut % (Auto) 61.4 Lymph % (Auto) 29.3 [place] % (Auto) 6.3 Eos % (Auto) 2.4 Baso % (Auto) 0.3 Lymph # (Auto) 1.0 L [place] # (Auto) 0.2 Eos # (Auto) 0.1 Baso # (Auto) 0.0 Abs Immat Gran (auto) 0.01 Absolute Neuts (auto) 2.1 Absolute Nucleated RBC 0.000 Nucleated RBC % (auto) 0.0 Anion Gap 10 L Estim Creat Clear Calc 85.8 Estimated GFR > 60 Fasting Glucose 219 H Calcium 8.0 L Assessment and Plan (1) Closed intertrochanteric fracture of right hip: Status: Acute Plan This is a 59-year-old female with PMH of prior CVA with residual right-sided deficits, generalized seizure on keppra, HTN, GALILEO on methadone, anxiety, depression who presented after mechanical fall found to have right hip fracture/ s/p ORIF, awaiting STR Mechanical fall causing right-sided acute subcapital fracture of the right hip POD #2 s/p R hip ORIF pain suboptimally controlled; will increase pain meds DVT prophylaxis lovenox PT rec STR - awating placement QTC prolongation-status post magnesium EKG repeatedly with qtc >500 appears somewhat chronic (likely methadone related) Avoid QT-prolonging agents sinus bradycardia - asymptomatic HR improved likely due to methadone no wilbert blocking agents acute anemia expected from ORIF + BM suppression H&H dropped to 7.8/23.5 today, though no indication for blood transfusion at this time trend CBC pancytopenia Likely BM suppression daily labs Prior CVA residual right arm weakness continue statin ASA resumed post procedure seizure disorder continue Keppra seizure precautions GALILEO on methadone Cont home methadone Utox +for methadone and fentanyl (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 Quality Stroke Does the patient have a stroke diagnosis?: No VTE Prior VTE?: No VTE Risk Level:: Medical - moderate - high VTE Device Contraindication: N/A - Device Ordered VTE Drug Contraindication: N/A - Med Ordered
[2025-08-06] MEDS: methADONE HCl 20 MG/2 ML ORAL.CONC 175 MG PO (08:02)
--- NOTE | 2025-08-06 10:18 | PC.NURSE ---
ok to dc ciwa scale and orthostatic vitals per Dr Cortes
[2025-08-06] MEDS: 0.9 % Sodium Chloride Flush 3 ML SYRINGE IVFLUSH ×2 (15:48→21:14)
[2025-08-07] VITALS (8 sets, daily range): BP systolic 110–146; BP diastolic 58–69; PULSE 55–115; RESP 14–18; TEMP 36–36.6; O2SAT 96–97
--- NOTE | 2025-08-07 04:15 | PC.NURSE ---
Crow Catheter was removed on this patient previous shift 1300, therefore, patient due to void between [id number]. Out of bed to commode with no void at 1930 and bladder scan revealed 146ml. Patient denied any bladder pain or pressure. Assisted to commode using Luis Alberto walker at 2330 and still unable to void. Bladder scan amount now 309ml and pt still continued to say no bladder pain or pressure, she didn't want to be catheterized and asking for more time. Due to the amount, more time allowed to monitor output. Assisted to commode at 0345 and able to void 500ml dark yellow urine and PVR scan showed 22ml. Back to bed and medicated for right hip and leg pain with good effect, refer to MAR. Telemetry rhythm SR-SB, SB, SB, VSS, will continue to monitor.
[2025-08-07 06:33] LABS: MANUAL DIFF FLAG NO
[2025-08-07 06:37] LABS: Hematocrit 23.9 % (37.0-47.0); Hemoglobin 7.6 g/dl (12.0-16.0); Imm Gran Abs Auto 0.02 X10*3/uL (0.00-0.03); Imm Gran Pct Auto 0.5 % (0.0-0.4); Lymphocytes Absolute Auto 1.2 X10*3/uL (1.2-4.9); Mean Corpuscular HGB Conc 31.8 g/dl (31.0-35.0); Mean Corpuscular Hemoglobin 30.5 pg (27.0-33.0); Mean Corpuscular Volume 96.0 fL (80.0-98.0); NRBC Abs Auto 0.000 X10*3/uL (0.0-0.012); NRBC Pct Auto 0.0 /100WBC (0.0-0.2); Platelet Count 166 X10*3/uL (160-400); Red Blood Count 2.49 X10*6/uL (4.20-5.50); White Blood Count 4.1 X10*3/uL (4.8-10.8)
[2025-08-07] MEDS: Ferrous Sulfate 324 MG TABLET.DR PO ×2 (07:32→16:03)
[2025-08-07] MEDS: methADONE HCl 20 MG/2 ML ORAL.CONC 175 MG PO (07:33)
[2025-08-07] MEDS: Lidocaine 4 % Patch ADH..PATCH 2 PATCH TRANSDERMA (07:33)
[2025-08-07] MEDS: 0.9 % Sodium Chloride Flush 3 ML SYRINGE IVFLUSH ×2 (07:34→13:59)
--- NOTE | 2025-08-07 07:39 | P.PNOP_ITS ---
Subjective Subjective Date of Service: 08/07/25 Interval history: Postop day 5 status post right hip IM nail Patient resting comfortably in bed this morning Pain well managed No acute events overnight No other acute complaints or concerns at this time Physical Exam Vital Signs: Vital Signs: Last Vital Signs Temp 97.3 F 08/07/25 07:23 Pulse 60 08/07/25 07:23 Resp 16 08/07/25 07:23 BP 117/58 L 08/07/25 07:23 Pulse Ox 96 08/07/25 07:23 O2 Del Method Room Air 08/07/25 07:23 O2 Flow Rate 6 08/02/25 14:00 BMI result Body Mass Index 28.5 Extrem: Other: Proximal Dressings on right hip clean, dry, intact Patient is able to flex and extend the digits of the right foot without di fficulty Compartments soft, nontender Distal sensation intact Capillary refill brisk Procedures Date of Service Date of Service: 08/07/25 Progress Note: A&P Assessment and plan (1) Closed intertrochanteric fracture of right femur: Status: Acute Plan 1. Status post right hip IM nail DOS 08/02/2025 Continue pain management Continue Lovenox for DVT prophylaxis, total duration of 6 weeks PT/OT eval complete: Recommend a short-term rehab upon discharge Dispo planning-medical clearance, PT/OT eval, rehab placement Time Spent With Patient Time: Total time managing care of this patient today ____ minutes. Quality Stroke Does the patient have a stroke diagnosis?: No VTE Prior VTE?: No VTE Risk Level:: Medical - moderate - high VTE Device Contraindication: N/A - Device Ordered VTE Drug Contraindication: N/A - Med Ordered
--- NOTE | 2025-08-07 14:39 | MHC.CM.PN ---
MESSAGE RECEIVED FROM ZARINA CAPONE THAT ALL [facility] PPW HAS BEEN SENT TO [facility] IN [place]. MULTIPLE ATTEMPTS TO SPEAK WITH SOMEONE AT [facility] TO CONFIRM GUEST DOSING WITHOUT SUCCESS. [facility] SEEKING AUTH FROM [facility], CONTINUE TO AWAIT INSURANCE APPROVAL.
[2025-08-07] MEDS: oxyCODONE HCl Immed Release 5 MG TABLET 10 MG PO (16:02)
--- NOTE | 2025-08-07 17:19 | HO.PM.IMPN ---
Subjective Subjective Date of Service: 08/07/25 Interval History: Still awaiting placement Review of Systems Review of Systems: Yes all other systems are reviewed and are negative Physical Exam Vital Signs: Vital Signs: Last Vital Signs Temp 97.8 F 08/07/25 15:15 Pulse 55 08/07/25 15:15 Resp 18 08/07/25 15:15 BP 128/60 08/07/25 15:15 Pulse Ox 97 08/07/25 15:15 O2 Del Method Room Air 08/07/25 15:15 O2 Flow Rate 6 08/02/25 14:00 BMI result Body Mass Index 28.5 Extrem: Other: Proximal Dressings on right hip clean, dry, intact Patient is able to flex and extend the digits of the right foot without difficulty Compartments soft, nontender Distal sensation intact Capillary refill brisk Objective Data Active Medications Acetaminophen (Acetaminophen 325 Mg Tablet) 975 mg PO Q6H [facility] Last Admin: 08/07/25 16:02 Dose: 975 mg Documented By: DARRIAN Ascorbic Acid (Ascorbic Acid 250 Mg Tablet) 250 mg PO DAILY [facility] Last Admin: 08/07/25 07:32 Dose: 250 mg Documented By: DARRIAN Aspirin (Aspirin 81 Mg Tab.Chew) 81 mg PO DAILY [facility] Last Admin: 08/07/25 07:32 Dose: 81 mg Documented By: DARRIAN Atorvastatin Calcium (Atorvastatin Calcium 40 Mg Tablet) 40 mg PO DAILY [facility] Last Admin: 08/07/25 07:32 Dose: 40 mg Documented By: DARRIAN Enoxaparin Sodium (Enoxaparin Sodium 40 Mg/0.4 Ml Syringe) 40 mg SUBCUT Q24H [facility] Last Admin: 08/07/25 12:42 Dose: 40 mg Documented By: DARRIAN Escitalopram Oxalate (Escitalopram Oxalate 10 Mg Tablet) 10 mg PO DAILY [facility] Last Admin: 08/07/25 07:32 Dose: 10 mg Documented By: DARRIAN Ferrous Sulfate (Ferrous Sulfate 324 Mg Tablet.) 324 mg PO BIDWM [facility] Last Admin: 08/07/25 16:03 Dose: 324 mg Documented By: DARRIAN Hydromorphone HCl (Hydromorphone Hcl 1 Mg/Ml Syringe) 1.5 mg IVPUSH Q3H PRN; Protocol PRN Reason: Pain, Severe (Pain Scale 7-10) Last Admin: 08/07/25 13:56 Dose: 1.5 mg Documented By: DARRIAN Levetiracetam (Levetiracetam 500 Mg Tablet) 500 mg PO BID [facility] Last Admin: 08/07/25 07:32 Dose: 500 mg Documented By: DARRIAN Lidocaine (Lidocaine 4 % Patch Adh..Patch) 2 patch TRANSDERMA DAILY [facility]; Protocol Last Admin: 08/07/25 07:33 Dose: 2 patch Documented By: DARRIAN Lisinopril (Lisinopril 10 Mg Tablet) 10 mg PO DAILY [facility]; Protocol On Hold: 08/03/25 16:12 Last Admin: 08/03/25 07:25 Dose: 10 mg Documented By: CINDY Magnesium Oxide (Magnesium Oxide 400 Mg Tablet) 400 mg PO BIDPC [facility] Last Admin: 08/07/25 16:02 Dose: 400 mg Documented By: DARRIAN Methadone HCl (Methadone Hcl 20 Mg/2 Ml Oral.Conc) 175 mg PO DAILY@0800 [facility] Last Admin: 08/07/25 07:33 Dose: 175 mg Documented By: DARRIAN Co-signed By: FARZANEH Mirtazapine (Mirtazapine 15 Mg Tablet) 15 mg PO BEDTIME [facility] Last Admin: 08/06/25 21:14 Dose: 15 mg Documented By: JOCE Oxycodone HCl (Oxycodone Hcl Immed Release 5 Mg Tablet) 10 mg PO Q4H PRN PRN Reason: Pain, Moderate(Pain Scale 4-6) Last Admin: 08/07/25 16:02 Dose: 10 mg Documented By: DARRIAN Ropinirole HCl (Ropinirole Hcl 1 Mg Tablet) 3 mg PO BEDTIME [facility] Last Admin: 08/06/25 21:13 Dose: 3 mg Documented By: JOCE Sodium Chloride (0.9 % Sodium Chloride Flush 3 Ml Syringe) 3 ml IVFLUSH QSHIFT [facility] Last Admin: 08/07/25 13:59 Dose: 3 ml Documented By: DARRIAN Labs 08/07/25 05:52 08/06/25 06:02 Labs: Laboratory Results - last 24 hr 08/07/25 05:52 MCV 96.0 MCH 30.5 MCHC 31.8 RDW 12.7 Plt Count 166 MPV 10.0 Immature Gran % (Auto) 0.5 H Neut % (Auto) 61.7 Lymph % (Auto) 28.9 [place] % (Auto) 7.2 Eos % (Auto) 1.5 Baso % (Auto) 0.2 Lymph # (Auto) 1.2 [place] # (Auto) 0.3 Eos # (Auto) 0.1 Baso # (Auto) 0.0 Abs Immat Gran (auto) 0.02 Absolute Neuts (auto) 2.5 Absolute Nucleated RBC 0.000 Nucleated RBC % (auto) 0.0 Assessment and Plan (1) Closed intertrochanteric fracture of right hip: Status: Acute Plan This is a 59-year-old female with PMH of prior CVA with residual right-sided deficits, generalized seizure on keppra, HTN, GALILEO on methadone, anxiety, depression who presented after mechanical fall found to have right hip fracture/ s/p ORIF, awaiting STR Mechanical fall causing right-sided acute subcapital fracture of the right hip POD #2 s/p R hip ORIF pain suboptimally controlled; will increase pain meds DVT prophylaxis lovenox PT rec STR - awating placement QTC prolongation-status post magnesium EKG repeatedly with qtc >500 appears somewhat chronic (likely methadone related) Avoid QT-prolonging agents sinus bradycardia - asymptomatic HR improved likely due to methadone no wilbert blocking agents acute anemia expected from ORIF + BM suppression H&H dropped to 7.8/23.5 today, though no indication for blood transfusion at this time trend CBC pancytopenia Likely BM suppression daily labs Prior CVA residual right arm weakness continue statin ASA resumed post procedure seizure disorder continue Keppra seizure precautions GALILEO on methadone Cont home methadone Utox +for methadone and fentanyl (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 Quality Stroke Does the patient have a stroke diagnosis?: No VTE Prior VTE?: No VTE Risk Level:: Medical - moderate - high VTE Device Contraindication: N/A - Device Ordered VTE Drug Contraindication: N/A - Med Ordered
[2025-08-08] VITALS (7 sets, daily range): BP systolic 111–140; BP diastolic 55–65; PULSE 54–71; RESP 16–18; TEMP 36–37.2; O2SAT 94–97
[2025-08-08] MEDS: oxyCODONE HCl Immed Release 5 MG TABLET 10 MG PO ×5 (00:26→20:50)
[2025-08-08 06:52] LABS: MANUAL DIFF FLAG NO
[2025-08-08 07:01] LABS: Hematocrit 23.8 % (37.0-47.0); Hemoglobin 7.6 g/dl (12.0-16.0); Imm Gran Abs Auto 0.01 X10*3/uL (0.00-0.03); Imm Gran Pct Auto 0.2 % (0.0-0.4); Lymphocytes Absolute Auto 1.5 X10*3/uL (1.2-4.9); Mean Corpuscular HGB Conc 31.9 g/dl (31.0-35.0); Mean Corpuscular Hemoglobin 31.1 pg (27.0-33.0); Mean Corpuscular Volume 97.5 fL (80.0-98.0); NRBC Abs Auto 0.000 X10*3/uL (0.0-0.012); NRBC Pct Auto 0.0 /100WBC (0.0-0.2); Platelet Count 187 X10*3/uL (160-400); Red Blood Count 2.44 X10*6/uL (4.20-5.50); White Blood Count 4.2 X10*3/uL (4.8-10.8)
[2025-08-08] MEDS: Lidocaine 4 % Patch ADH..PATCH 2 PATCH TRANSDERMA (07:27)
[2025-08-08] MEDS: Ferrous Sulfate 324 MG TABLET.DR PO ×2 (07:27→16:23)
[2025-08-08] MEDS: methADONE HCl 20 MG/2 ML ORAL.CONC 175 MG PO (07:27)
[2025-08-08] MEDS: 0.9 % Sodium Chloride Flush 3 ML SYRINGE IVFLUSH ×2 (07:36→13:52)
--- NOTE | 2025-08-08 07:37 | HO.PM.IMPN ---
Subjective Subjective Date of Service: 08/08/25 Interval History: Continuing to await placement Review of Systems Review of Systems: Yes all other systems are reviewed and are negative Physical Exam Vital Signs: Vital Signs: Last Vital Signs Temp 96.8 F 08/08/25 07:22 Pulse 57 08/08/25 07:22 Resp 18 08/08/25 07:22 BP 111/55 L 08/08/25 07:22 Pulse Ox 96 08/08/25 07:22 O2 Del Method Room Air 08/08/25 07:22 O2 Flow Rate 6 08/02/25 14:00 BMI result Body Mass Index 28.5 Extrem: Other: Proximal Dressings on right hip clean, dry, intact Patient is able to flex and extend the digits of the right foot without difficulty Compartments soft, nontender Distal sensation intact Capillary refill brisk Objective Data Active Medications Acetaminophen (Acetaminophen 325 Mg Tablet) 975 mg PO Q6H [facility] Last Admin: 08/08/25 04:12 Dose: 975 mg Documented By: CINDY Ascorbic Acid (Ascorbic Acid 250 Mg Tablet) 250 mg PO DAILY [facility] Last Admin: 08/08/25 07:27 Dose: 250 mg Documented By: DARRIAN Aspirin (Aspirin 81 Mg Tab.Chew) 81 mg PO DAILY [facility] Last Admin: 08/08/25 07:27 Dose: 81 mg Documented By: DARRIAN Atorvastatin Calcium (Atorvastatin Calcium 40 Mg Tablet) 40 mg PO DAILY [facility] Last Admin: 08/08/25 07:27 Dose: 40 mg Documented By: DARRIAN Enoxaparin Sodium (Enoxaparin Sodium 40 Mg/0.4 Ml Syringe) 40 mg SUBCUT Q24H [facility] Last Admin: 08/07/25 12:42 Dose: 40 mg Documented By: DARRIAN Escitalopram Oxalate (Escitalopram Oxalate 10 Mg Tablet) 10 mg PO DAILY [facility] Last Admin: 08/08/25 07:27 Dose: 10 mg Documented By: DARRIAN Ferrous Sulfate (Ferrous Sulfate 324 Mg Tablet.) 324 mg PO BIDWM [facility] Last Admin: 08/08/25 07:27 Dose: 324 mg Documented By: DARRIAN Hydromorphone HCl (Hydromorphone Hcl 1 Mg/Ml Syringe) 1.5 mg IVPUSH Q3H PRN; Protocol PRN Reason: Pain, Severe (Pain Scale 7-10) Last Admin: 08/08/25 07:28 Dose: 1.5 mg Documented By: DARRIAN Levetiracetam (Levetiracetam 500 Mg Tablet) 500 mg PO BID [facility] Last Admin: 08/08/25 07:27 Dose: 500 mg Documented By: DARRIAN Lidocaine (Lidocaine 4 % Patch Adh..Patch) 2 patch TRANSDERMA DAILY [facility]; Protocol Last Admin: 08/08/25 07:27 Dose: 2 patch Documented By: DARRIAN Lisinopril (Lisinopril 10 Mg Tablet) 10 mg PO DAILY [facility]; Protocol On Hold: 08/03/25 16:12 Last Admin: 08/03/25 07:25 Dose: 10 mg Documented By: CINDY Magnesium Oxide (Magnesium Oxide 400 Mg Tablet) 400 mg PO BIDPC [facility] Last Admin: 08/08/25 07:26 Dose: 400 mg Documented By: DARRIAN Methadone HCl (Methadone Hcl 20 Mg/2 Ml Oral.Conc) 175 mg PO DAILY@0800 [facility] Last Admin: 08/08/25 07:27 Dose: 175 mg Documented By: DARRIAN Co-signed By: JET Mirtazapine (Mirtazapine 15 Mg Tablet) 15 mg PO BEDTIME [facility] Last Admin: 08/07/25 20:32 Dose: 15 mg Documented By: TATUM Oxycodone HCl (Oxycodone Hcl Immed Release 5 Mg Tablet) 10 mg PO Q4H PRN PRN Reason: Pain, Moderate(Pain Scale 4-6) Last Admin: 08/08/25 04:12 Dose: 10 mg Documented By: CINDY Ropinirole HCl (Ropinirole Hcl 1 Mg Tablet) 3 mg PO BEDTIME [facility] Last Admin: 08/07/25 20:32 Dose: 3 mg Documented By: TATUM Sodium Chloride (0.9 % Sodium Chloride Flush 3 Ml Syringe) 3 ml IVFLUSH QSHIFT [facility] Last Admin: 08/08/25 07:36 Dose: 3 ml Documented By: DARRIAN Labs 08/08/25 06:42 08/06/25 06:02 Labs: Laboratory Results - last 24 hr 08/08/25 06:42 MCV 97.5 MCH 31.1 MCHC 31.9 RDW 12.9 Plt Count 187 MPV 9.8 Immature Gran % (Auto) 0.2 Neut % (Auto) 53.0 Lymph % (Auto) 36.0 [place] % (Auto) 8.6 Eos % (Auto) 1.7 Baso % (Auto) 0.5 Lymph # (Auto) 1.5 [place] # (Auto) 0.4 Eos # (Auto) 0.1 Baso # (Auto) 0.0 Abs Immat Gran (auto) 0.01 Absolute Neuts (auto) 2.2 Absolute Nucleated RBC 0.000 Nucleated RBC % (auto) 0.0 Hold Purple Top Cancelled Assessment and Plan (1) Closed intertrochanteric fracture of right hip: Status: Acute Plan This is a 59-year-old female with PMH of prior CVA with residual right-sided deficits, generalized seizure on keppra, HTN, GALILEO on methadone, anxiety, depression who presented after mechanical fall found to have right hip fracture/ s/p ORIF, awaiting STR Mechanical fall causing right-sided acute subcapital fracture of the right hip POD #2 s/p R hip ORIF pain suboptimally controlled; will increase pain meds DVT prophylaxis lovenox PT rec STR - awating placement QTC prolongation-status post magnesium EKG repeatedly with qtc >500 appears somewhat chronic (likely methadone related) Avoid QT-prolonging agents sinus bradycardia - asymptomatic HR improved likely due to methadone no wilbert blocking agents acute anemia expected from ORIF + BM suppression H&H dropped to 7.8/23.5 today, though no indication for blood transfusion at this time trend CBC pancytopenia Likely BM suppression daily labs Prior CVA residual right arm weakness continue statin ASA resumed post procedure seizure disorder continue Keppra seizure precautions GALILEO on methadone Cont home methadone Utox +for methadone and fentanyl (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 Quality Stroke Does the patient have a stroke diagnosis?: No VTE Prior VTE?: No VTE Risk Level:: Medical - moderate - high VTE Device Contraindication: N/A - Device Ordered VTE Drug Contraindication: N/A - Med Ordered
--- NOTE | 2025-08-08 15:16 | MHC.CM.PN ---
EMR REVIEWED AND PT IS MEDICALLY CLEARED FOR DC TO STR HOWEVER [facility] HAS NOT SECURED INSURANCE AUTH FOR ADMISSION AND PER [facility], NO PPW FROM HOME [facility] WAS RECEIVED. THIS CM SPOKE WITH ZARINA CAPONE COUNSELOR LIZABETH, WHO AGAIN CONFIRMS THE PPW WAS SENT 08/07. PER LIZABETH, SHE WILL RE-SEND THE PPW AND THIS CM WILL CONFIRM WITH [facility] THAT PPW HAS BEEN RECEIVED ON 08/09. PROVIDER AWARE. CM WILL CONTINUE TO AWAIT COMPLETION OF GUEST DOSING AND INSURANCE AUTH.
[2025-08-09 03:17] VITALS: BP 124/59; PULSE 60; RESP 18; TEMP 37.6; O2SAT 97
[2025-08-09] MEDS: oxyCODONE HCl Immed Release 5 MG TABLET 10 MG PO ×3 (05:26→14:18)
[2025-08-09 05:34] LABS: MANUAL DIFF FLAG NO
[2025-08-09 05:37] LABS: Hematocrit 24.0 % (37.0-47.0); Hemoglobin 7.6 g/dl (12.0-16.0); Imm Gran Abs Auto 0.03 X10*3/uL (0.00-0.03); Imm Gran Pct Auto 0.7 % (0.0-0.4); Lymphocytes Absolute Auto 1.4 X10*3/uL (1.2-4.9); Mean Corpuscular HGB Conc 31.7 g/dl (31.0-35.0); Mean Corpuscular Hemoglobin 30.6 pg (27.0-33.0); Mean Corpuscular Volume 96.8 fL (80.0-98.0); NRBC Abs Auto 0.000 X10*3/uL (0.0-0.012); NRBC Pct Auto 0.0 /100WBC (0.0-0.2); Platelet Count 190 X10*3/uL (160-400); Red Blood Count 2.48 X10*6/uL (4.20-5.50); White Blood Count 4.4 X10*3/uL (4.8-10.8)
[2025-08-09 05:52] LABS: Alanine Aminotransferase 6 U/L (0-31); Albumin Level 3.1 g/dL (3.5-5.0); Alkaline Phosphatase 105 U/L (39-117); Anion Gap 11 (12-20); Aspartate Amino Transferase 19 U/L (5-31); Blood Urea Nitrogen 25 mg/dL (9-16); Calcium 8.4 mg/dL (8.4-10.2); Carbon Dioxide 25 mmol/L (22-29); Chloride 106 mmol/L (96-108); Creatinine Clr Calc Pharmacy 78.5; Estimated Glomerular Filt Rate > 60; Magnesium 2.1 mg/dL (1.6-2.6); Potassium 4.1 mmol/L (3.3-5.1); Sodium 138 mmol/L (135-145); Total Protein 5.9 g/dL (6.5-8.0)
--- NOTE | 2025-08-09 07:24 | P.PNIM_ITS ---
Subjective Subjective Date of Service: 08/09/25 Interval History: Still awaiting insurance Auth for disposition Review of Systems Review of Systems: Yes all other systems are reviewed and are negative Physical Exam 2 Vital Signs: Vital Signs: Last Vital Signs Temp 99.6 F 08/09/25 03:17 Pulse 60 08/09/25 03:17 Resp 18 08/09/25 03:17 BP 124/59 L 08/09/25 03:17 Pulse Ox 97 08/09/25 03:17 O2 Del Method Room Air 08/09/25 03:17 O2 Flow Rate 6 08/02/25 14:00 BMI result Body Mass Index 28.5 Extrem: Other: Proximal Dressings on right hip clean, dry, intact Patient is able to flex and extend the digits of the right foot without difficulty Compartments soft, nontender Distal sensation intact Capillary refill brisk Objective Data Active Medications Acetaminophen (Acetaminophen 325 Mg Tablet) 975 mg PO Q6H [facility] Last Admin: 08/09/25 05:26 Dose: 975 mg Documented By: TATUM Ascorbic Acid (Ascorbic Acid 250 Mg Tablet) 250 mg PO DAILY [facility] Last Admin: 08/08/25 07:27 Dose: 250 mg Documented By: DARRIAN Aspirin (Aspirin 81 Mg Tab.Chew) 81 mg PO DAILY [facility] Last Admin: 08/08/25 07:27 Dose: 81 mg Documented By: DARRIAN Atorvastatin Calcium (Atorvastatin Calcium 40 Mg Tablet) 40 mg PO DAILY [facility] Last Admin: 08/08/25 07:27 Dose: 40 mg Documented By: DARRIAN Enoxaparin Sodium (Enoxaparin Sodium 40 Mg/0.4 Ml Syringe) 40 mg SUBCUT Q24H [facility] Last Admin: 08/08/25 12:16 Dose: 40 mg Documented By: DARRIAN Escitalopram Oxalate (Escitalopram Oxalate 10 Mg Tablet) 10 mg PO DAILY [facility] Last Admin: 08/08/25 07:27 Dose: 10 mg Documented By: DARRIAN Ferrous Sulfate (Ferrous Sulfate 324 Mg Tablet.) 324 mg PO BIDWM [facility] Last Admin: 08/08/25 16:23 Dose: 324 mg Documented By: DARRIAN Hydromorphone HCl (Hydromorphone Hcl 1 Mg/Ml Syringe) 1.5 mg IVPUSH Q3H PRN; Protocol PRN Reason: Pain, Severe (Pain Scale 7-10) Last Admin: 08/08/25 07:28 Dose: 1.5 mg Documented By: DARRIAN Levetiracetam (Levetiracetam 500 Mg Tablet) 500 mg PO BID [facility] Last Admin: 08/08/25 20:51 Dose: 500 mg Documented By: TATUM Lidocaine (Lidocaine 4 % Patch Adh..Patch) 2 patch TRANSDERMA DAILY [facility]; Protocol Last Admin: 08/08/25 07:27 Dose: 2 patch Documented By: DARRIAN Lisinopril (Lisinopril 10 Mg Tablet) 10 mg PO DAILY [facility]; Protocol On Hold: 08/03/25 16:12 Last Admin: 08/03/25 07:25 Dose: 10 mg Documented By: CINDY Magnesium Oxide (Magnesium Oxide 400 Mg Tablet) 400 mg PO BIDPC [facility] Last Admin: 08/08/25 16:23 Dose: 400 mg Documented By: DARRIAN Methadone HCl (Methadone Hcl 20 Mg/2 Ml Oral.Conc) 175 mg PO DAILY@0800 [facility] Last Admin: 08/08/25 07:27 Dose: 175 mg Documented By: DARRIAN Co-signed By: JET Mirtazapine (Mirtazapine 15 Mg Tablet) 15 mg PO BEDTIME [facility] Last Admin: 08/08/25 20:51 Dose: 15 mg Documented By: TATUM Oxycodone HCl (Oxycodone Hcl Immed Release 5 Mg Tablet) 10 mg PO Q4H PRN PRN Reason: Pain, Moderate(Pain Scale 4-6) Last Admin: 08/09/25 05:26 Dose: 10 mg Documented By: TATUM Comments: per pt request Ropinirole HCl (Ropinirole Hcl 1 Mg Tablet) 3 mg PO BEDTIME [facility] Last Admin: 08/08/25 20:50 Dose: 3 mg Documented By: TATUM Sodium Chloride (0.9 % Sodium Chloride Flush 3 Ml Syringe) 3 ml IVFLUSH QSHIFT [facility] Last Admin: 08/09/25 00:05 Dose: Not Given Documented By: TATUM Non-Admin Reason: Previously Administered Labs 08/09/25 05:18 08/09/25 05:18 Labs: Laboratory Results - last 24 hr 08/01/25 08/09/25 18:40 05:18 MCV 96.8 MCH 30.6 MCHC 31.7 RDW 13.2 Plt Count 190 MPV 9.6 Immature Gran % (Auto) 0.7 H Neut % (Auto) 54.4 Lymph % (Auto) 32.6 [place] % (Auto) 10.0 Eos % (Auto) 2.1 Baso % (Auto) 0.2 Lymph # (Auto) 1.4 [place] # (Auto) 0.4 Eos # (Auto) 0.1 Baso # (Auto) 0.0 Abs Immat Gran (auto) 0.03 Absolute Neuts (auto) 2.4 Absolute Nucleated RBC 0.000 Nucleated RBC % (auto) 0.0 Anion Gap 11 L Estim Creat Clear Calc 78.5 Estimated GFR > 60 Random Glucose 143 H Calcium 8.4 Magnesium 2.1 Total Bilirubin 0.3 AST 19 ALT 6 Alkaline Phosphatase 105 Total Protein 5.9 L Albumin 3.1 L Urine Ethyl Alcohol SEE NOTE Assessment and Plan (1) Closed intertrochanteric fracture of right hip: Status: Acute Plan This is a 59-year-old female with PMH of prior CVA with residual right-sided deficits, generalized seizure on keppra, HTN, GALILEO on methadone, anxiety, depression who presented after mechanical fall found to have right hip fracture/ s/p ORIF, awaiting STR Mechanical fall causing right-sided acute subcapital fracture of the right hip POD #2 s/p R hip ORIF pain suboptimally controlled; will increase pain meds DVT prophylaxis lovenox PT rec STR - awating placement QTC prolongation-status post magnesium EKG repeatedly with qtc >500 appears somewhat chronic (likely methadone related) Avoid QT-prolonging agents sinus bradycardia - asymptomatic HR improved likely due to methadone no wilbert blocking agents acute anemia expected from ORIF + BM suppression trend CBC , transfuse if less than 7 Continue ferrous sulfate supplementation pancytopenia Likely BM suppression daily labs Prior CVA residual right arm weakness continue statin ASA resumed post procedure seizure disorder continue Keppra seizure precautions GALILEO on methadone Cont home methadone Utox +for methadone and fentanyl (got fentanyl in ambulance [employer]) no drug use in several years Mood Cont home meds DVT px- lovenox dispo: STR Pt requires continued hospitalization for short-term rehab placement for safe disposition. Quality Stroke Does the patient have a stroke diagnosis?: No VTE Prior VTE?: No VTE Risk Level:: Medical - moderate - high VTE Device Contraindication: N/A - Device Ordered VTE Drug Contraindication: N/A - Med Ordered
[2025-08-09] MEDS: Ferrous Sulfate 324 MG TABLET.DR PO (07:45)
[2025-08-09] MEDS: Lidocaine 4 % Patch ADH..PATCH 2 PATCH TRANSDERMA (07:45)
[2025-08-09] MEDS: methADONE HCl 20 MG/2 ML ORAL.CONC 175 MG PO (07:48)
[2025-08-09] MEDS: 0.9 % Sodium Chloride Flush 3 ML SYRINGE IVFLUSH (07:48)
[2025-08-09 08:00] VITALS: BP 129/60; PULSE 67; RESP 18; TEMP 36.1; O2SAT 98
--- NOTE | 2025-08-09 11:08 | MHC.CM.PN ---
Per [facility], Destin garcia received. Per Aga @ [employer], guest dosing approved for start date 08/10. Patient medically cleared for dc. BLS transport booked for 2pm. , RN, and patient aware. IMM delivered.
[2025-08-09 12:00] VITALS: BP 133/60; PULSE 58; RESP 18; TEMP 37; O2SAT 96
--- NOTE | 2025-08-09 13:29 | P.DS_ITS ---
DS: Providers Provider Date of admission: 08/01/25 11:14 Date of discharge: 08/09/25 Primary care physician: Adalberto Man MD Consults: 08/01/25 16:51 Consult to Orthopedics Routine Consulting Provider: [facility] [place] [facility] Reason for consultation: R hip # 08/01/25 17:25 Addiction Medicine Provider Routine Consulting Provider: Addiction Covering Reason for consultation: need to confirm f she actually takes methadone, ty 08/02/25 15:30 Consult to Case Management Routine Comment: DS: Diagnosis Discharge Diagnosis (1) Closed intertrochanteric fracture of right hip: Status: Acute DS: Summary Hospital Course Hospital Course: Chief Complaint: Mechanical fall Patient is a 59-year-old female with PMH notable for prior CVA with residual right-sided deficits, generalized seizure with Keppra dose (did skip the dose this a.m.), HTN, drug use, anxiety, depression who presented with a stated tripping and falling and sustained a right hip fracture. She denied any syncopal or presyncopal episodes, chest pain shortness of breath or any lightheadedness. Denied any anticoagulation or any recent drug use. Was seen by Orthopedics in the ED and is to undergo open reduction internal fixation of the right hip tomorrow a.m.. ED course-she had to receive Valium 2.5 mg, Dilaudid 1 mg IVP, ketamine 10 mg IVP, morphine 4 mg IVP just to get her to be able to get an x-ray of her hip. When I examined the patient in the ED-she appeared to be calm, was in Trendelenburg position, vitals WNL EKG QTC prolongation, gave her a dose of magnesium 2 g IV We will repeat EKG Being admitted under medical service and Orthopedics to consult. Hospital Course: 59-year-old female with history of prior CVA (with residual right-sided deficits), seizure disorder (on Keppra), hypertension, substance use disorder (on methadone), anxiety, and depression, admitted after a mechanical fall resulting in an acute right intertrochanteric (subcapital) hip fracture. She underwent open reduction and internal fixation (ORIF) and was managed postoperatively with pain control, DVT prophylaxis, and physical therapy evaluation. Her pain was initially suboptimally controlled, requiring adjustment of analgesics. Her hospital course was notable for chronic QTc prolongation (QTc >500 ms, likely methadone-related), for which QT-prolonging agents were avoided. She also had asymptomatic sinus bradycardia, likely related to methadone, and wilbert blocking agents were avoided. Thankfully it resolved with daily magnesium supplementation and methadone was resumed at home dose She developed expected postoperative anemia and pancytopenia, likely related to bone marrow suppression. Hemoglobin was monitored, and didn't need transfusion . She continued on ferrous sulfate supplementation. Her prior CVA with residual right arm weakness was managed with continuation of statin therapy and resumption of aspirin postoperatively. Seizure disorder was managed with continued Keppra and seizure precautions. Fall precautions were maintained. Substance use disorder was managed with continuation of home methadone. Urine toxicology was positive for methadone and fentanyl (the latter administered by EMS prior to admission); there was no evidence of recent illicit drug use. Her mood disorder was managed with continuation of home psychiatric medications. She was evaluated by physical therapy and determined to require short-term rehabilitation for safe discharge. Discharge Medications: - Keppra - Methadone - Ferrous sulfate - Statin - Aspirin - Lovenox (for DVT prophylaxis, as indicated) - Home psychiatric medications Follow-Up: - Short-term rehabilitation facility - Outpatient follow-up with primary care, orthopedics, neurology, and psychiatry as indicated Condition at Discharge: Stable, pain controlled, neurologically at baseline, safe for transfer to short- term rehabilitation. Time spent discussing smoking cessation with patient: more than 10 minutes Status at Discharge Functional status at discharge: wheelchair bound Overall status at discharge: patient is progressing back to baseline Time Attestation Discharge Coordination Time (in mins): 65 Quality: Safe Use of Opioids Does Pt have an Active Cancer Diagnosis on the Problem List?: No Quality: Stroke Does the patient have a stroke diagnosis?: No Physical Exam Exam: Exam: General: AOx3, no acute distress Resp: CTA bilaterally CVS: S1, S2, RRR GI: +BS, NT, no distention Neuro: Motor grossly intact bilaterally Extremities: Right hip with appropriate tenderness at surgical sites. Surgical incision covered with clean and dry dressing. Pt capable of moving her toes. Limited mobility of RUE due to previous CVA. Vital Signs: Vital Signs: Last Vital Signs Temp 98.6 F 08/09/25 12:00 Pulse 58 08/09/25 12:00 Resp 18 08/09/25 12:00 BP 133/60 08/09/25 12:00 Pulse Ox 96 08/09/25 12:00 O2 Del Method Room Air 08/09/25 12:00 O2 Flow Rate 6 08/02/25 14:00 BMI result Body Mass Index 28.5 DS: Data Data Completed and Pending Labs on day of discharge: Laboratory Results - last 24 hr 08/09/25 05:18 WBC 4.4 L RBC 2.48 L Hgb 7.6 L Hct 24.0 L MCV 96.8 MCH 30.6 MCHC 31.7 RDW 13.2 Plt Count 190 MPV 9.6 Immature Gran % (Auto) 0.7 H Neut % (Auto) 54.4 Lymph % (Auto) 32.6 [place] % (Auto) 10.0 Eos % (Auto) 2.1 Baso % (Auto) 0.2 Lymph # (Auto) 1.4 [place] # (Auto) 0.4 Eos # (Auto) 0.1 Baso # (Auto) 0.0 Abs Immat Gran (auto) 0.03 Absolute Neuts (auto) 2.4 Absolute Nucleated RBC 0.000 Nucleated RBC % (auto) 0.0 Sodium 138 Potassium 4.1 Chloride 106 Carbon Dioxide 25 Anion Gap 11 L BUN 25 H Creatinine 0.71 Estim Creat Clear Calc 78.5 Estimated GFR > 60 Random Glucose 143 H Calcium 8.4 Magnesium 2.1 Total Bilirubin 0.3 AST 19 ALT 6 Alkaline Phosphatase 105 Total Protein 5.9 L Albumin 3.1 L Discharge Plan Discharge Anticipated Discharge Date/Time: 08/09/25 11:50 Patient Disposition: Xfer Other Discharge Diagnosis: mechanical fall found to have right hip fracture/ s/p ORIF [facility] [Outside] - 1 Week Referral Note: TRANSFER FOR SHORT TERM REHAB Ernestine Whittington PA-C [Physician Telesales Consultant, Orthopedics] - 2 Weeks Referral Note: 08/17/25 09:45 [facility] [place] [facility] Ernestine Whittington PA-C Viswanathan, Kartik K, MD [Primary Care Provider, Internal Medicine] - 1 Week Discharge Medications: New ferrous sulfate 324 mg (65 mg iron) Tablet,Delayed Release (Dr/Ec) 324 mg PO BIDWM 30 Days Qty: 60 3RF acetaminophen 325 mg Tablet 975 mg PO Q6H 30 Days Qty: 360 0RF oxycodone 5 mg Tablet 10 mg PO Q4H PRN (Reason: Pain, Moderate(Pain Scale 4-6)) 7 Days Qty: 10 0RF Rx Instructions: Partial Fill upon patient request. magnesium oxide 400 mg (241.3 mg magnesium) Tablet 400 mg PO BIDPC 30 Days Qty: 60 0RF lidocaine [Lidocaine Pain Relief] 4 % Adhesive Patch,Medicated 2 patch transdermal DAILY 30 Days Qty: 10 0RF Protocol: Apply to: Apply to: Affected ascorbic acid (vitamin C) 250 mg Tablet 250 mg PO DAILY 30 Days Qty: 30 3RF Continued atorvastatin 20 mg tablet 20 mg PO DAILY Qty: 90 1RF lisinopril 10 mg tablet 10 mg PO DAILY Qty: 90 1RF ropinirole 3 mg tablet 3 mg PO BEDTIME Qty: 90 0RF mirtazapine [Remeron] 15 mg tablet 15 mg PO BEDTIME Qty: 30 2RF alprazolam 0.5 mg tablet 0.5 mg PO DAILY 14 Days Qty: 14 0RF aspirin 81 mg Tablet,Delayed Release (Dr/Ec) 81 mg PO DAILY levetiracetam [Keppra] 500 mg tablet 500 mg PO BID Qty: 60 2RF methadone 10 mg/mL concentrate 175 mg PO DAILY Rx Instructions: [facility] citalopram 20 mg tablet 20 mg PO DAILY 90 Days Qty: 90 1RF Discharge Orders: Discharge Order (Routine); Ordered 08/09/25 Ordered By: Salena Cortes Diet: Low salt diet Activity on Discharge: As tolerated Stand Alone Forms: Patient Portal Discharge page Print Language: Icelandic Activity Restrictions/Additional Instructions: Physical therapy for right hip IM nail: WBAT, posterior precautions, gait training, range of motion, strength Limit stair climbing No showering, no tub bath-keep dressing clean dry and intact No driving for 6 weeks Continue Lovenox twice a day for 6 weeks Follow-up with [facility] in 2 weeks Care Plan Goals: See above Health Concerns: See above Plan of Treatment: Physical therapy for right hip IM nail: WBAT, posterior precautions, gait training, range of motion, strength Limit stair climbing No showering, no tub bath-keep dressing clean dry and intact No driving for 6 weeks Continue Lovenox twice a day for 6 weeks Follow-up with [facility] in 2 weeks Assessment: See above
--- NOTE | 2025-08-14 07:48 | P.BOP_ITS ---
Brief Operative Note Date of Service: 08/02/25 Pre-op diagnosis: Right hip IT fracture Post-op diagnosis: same Procedure: Right hip IMN Implants: Strykler [id number] 125 deg with 95mm hip screw Surgeon: Ankur Jay MD Anesthesia: local Was an Customer Records Division Supervisor used for this Procedure?: No Estimated blood loss (mL): 150 IV fluids (mL): 500 Pathology: none sent Condition: stable Disposition: PACU
--- NOTE | 2025-08-14 07:50 | W.PM.OPN ---
Operative Note Operative Note Date of Service: 08/02/25 Narrative: Date of Service: 08/02/25 Pre-op diagnosis: Right hip IT fracture Post-op diagnosis: same Procedure: Right hip IMN Implants: Strykler [id number] 125 deg with 95mm hip screw Surgeon: Ankur Jay MD Anesthesia: local Was an Pediatric Care Coordinator used for this Procedure?: No Estimated blood loss (mL): 150 IV fluids (mL): 500 Pathology: none sent Condition: stable Disposition: PACU Procedure in detail: Patient was brought to the operating room and prepped and draped in standard sterile fashion. Time-out was called to identify proper site procedure proper surgeon and IV antibiotics per weight were administered. She was positioned on the fracture table and a traction and slight internal rotation were performed and biplanar fluoroscopy confirmed initial fracture reduction. I then made a stab incision proximal to the greater trochanter in using a guidewire made a entry point just lateral to the tip of the greater trochanter and placed a guidewire into the femoral metadiaphysis. I then over-reamed with 15 mm Reamer placed my ball-tip guidewire down distally in the femur and measured my length. I selected an 11x 170 mm 125 deg IM nail and reamed up to a 13. I then inserted the nail. I then turned my attention to the hip screw where I used a guidewire and a tip apex distance of less than 1.5 measured a 95mm lag screw. I then pre drilled and placed the lag screw using biplanar fluoroscopy. Once I was satisfied with the position of the hip screw I turned my attention to the distal aspect of the nail. Using the guide 1 static distal interlocking screw in standard AO technique. I then removed all I then tighhtened my set screw proximally (1/4 loosened) and removed all extraneous instrumentation. Final biplanar radiographs were taken. I was satisfied with the position of the hardware and the fracture reduction. I think copiously irrigated closed with absorbable sutures troy and injected 30 mL of into the area of the incisions. Traction was let down patient was placed in sterile dressing awakened from anesthesia brought to recovery room stable condition there were no known complications.
== END 2025-08-09 14:27 | disposition other institution (70) | DRG 481 ==
LOC: HO.ED 11:09 → HO.EDOVER 11:19 → HO.S3 16:34
PROVIDERS: Orthopaedic Surgery; Registered Nurse Emergency; Student in an Organized Health Care Education/Training Program; Admitting Provider Student in an Organized Health Care Education/Training Program; Emergency Provider Emergency Medicine; PCP Internal Medicine; Visit Provider Student in an Organized Health Care Education/Training Program
PROC: 0QS636Z Reposition Right Upper Femur with Intramedullary Internal Fixation Device, Percutaneous Approach (ICD-10-PCS; principal; 2025-08-02 14:00)
DX: S72.141A Displaced intertrochanteric fracture of right femur, initial encounter for closed fracture (principal); D61.818 Other pancytopenia; I69.353 Hemiplegia and hemiparesis following cerebral infarction affecting right non-dominant side; F11.20 Opioid dependence, uncomplicated; D62 Acute posthemorrhagic anemia; F17.210 Nicotine dependence, cigarettes, uncomplicated; G40.909 Epilepsy, unspecified, not intractable, without status epilepticus; F32.A Depression, unspecified; R94.31 Abnormal electrocardiogram [ECG] [EKG]; F41.9 Anxiety disorder, unspecified; W19.XXXA Unspecified fall, initial encounter; T42.6X6A Underdosing of other antiepileptic and sedative-hypnotic drugs, initial encounter; Z71.6 Tobacco abuse counseling; Z79.82 Long term (current) use of aspirin; Z79.899 Other long term (current) drug therapy
CPT/HCPCS: 36415; 71045; 73502; 80048; 80053; 80307; 81001; 81003; 82040; 83735; 83880; 84100; 84443; 84484; 85025; 85610; 86850; 86900; 86901; 93005; 97110; 97162; 97166; 97530; 97535; 99285; C1713; J0690; J1100; J1171; J1650; J2003; J2250; J2270; J2371; J2405; J2795; J3010; J3360; J3475; J7120; S9485

== ENCOUNTER → 2025-08-01 07:07 | Outpatient (BNV) | payer MEDICARE, MEDICAID, SELFPAY | PROVIDERS: Admitting Provider Student in an Organized Health Care Education/Training Program; Emergency Provider Emergency Medicine; PCP Internal Medicine; Visit Provider Internal Medicine | DX: I49.9 Cardiac arrhythmia, unspecified (principal) | CPT/HCPCS: 93010 ==

== ENCOUNTER → 2025-08-01 07:07 | Outpatient (BNV) | payer MEDICARE, MEDICAID, SELFPAY | PROVIDERS: Emergency Provider Emergency Medicine; PCP Internal Medicine; Visit Provider Radiology Body Imaging | DX: S72.141A Displaced intertrochanteric fracture of right femur, initial encounter for closed fracture (principal); Z04.3 Encounter for examination and observation following other accident; Z03.89 Encounter for observation for other suspected diseases and conditions ruled out | CPT/HCPCS: 71045; 73502 ==

== ENCOUNTER → 2025-08-01 08:04 | Outpatient (BNV) | payer MEDICARE, MEDICAID, SELFPAY | PROVIDERS: Emergency Provider Emergency Medicine; PCP Internal Medicine; Visit Provider Physician Assistant | DX: S72.141A Displaced intertrochanteric fracture of right femur, initial encounter for closed fracture (principal) | CPT/HCPCS: 99024 ==

== ENCOUNTER 2025-08-01 11:14 | Outpatient (BNV) | payer MEDICARE, MEDICAID, SELFPAY | END 2025-08-02 08:15 | PROVIDERS: Admitting Provider Student in an Organized Health Care Education/Training Program; Emergency Provider Emergency Medicine; PCP Internal Medicine; Visit Provider Internal Medicine | DX: R00.1 Bradycardia, unspecified (principal) | CPT/HCPCS: 93010 ==

== ENCOUNTER 2025-08-01 11:14 | Outpatient (BNV) | payer MEDICARE, MEDICAID, SELFPAY | END 2025-08-06 15:27 | PROVIDERS: Admitting Provider Student in an Organized Health Care Education/Training Program; Emergency Provider Emergency Medicine; PCP Internal Medicine; Visit Provider Internal Medicine Cardiovascular Disease | DX: R00.1 Bradycardia, unspecified (principal) | CPT/HCPCS: 93010 ==

== ENCOUNTER 2025-08-01 11:14 | Outpatient (BNV) | payer MEDICARE, MEDICAID, SELFPAY | END 2025-08-04 10:19 | PROVIDERS: Admitting Provider Student in an Organized Health Care Education/Training Program; Emergency Provider Emergency Medicine; PCP Internal Medicine; Visit Provider Internal Medicine | DX: R00.1 Bradycardia, unspecified (principal) | CPT/HCPCS: 93010 ==

== ENCOUNTER → 2025-08-01 11:14 | Outpatient (BNV) | payer MEDICARE, MEDICAID, SELFPAY | PROVIDERS: Admitting Provider Student in an Organized Health Care Education/Training Program; Emergency Provider Emergency Medicine; PCP Internal Medicine; Visit Provider Student in an Organized Health Care Education/Training Program | DX: S72.141A Displaced intertrochanteric fracture of right femur, initial encounter for closed fracture (principal) | CPT/HCPCS: 99223; 99232; 99233 ==

== ENCOUNTER → 2025-08-01 11:14 | Outpatient (BNV) | payer MEDICARE, MEDICAID, SELFPAY | PROVIDERS: Admitting Provider Student in an Organized Health Care Education/Training Program; Emergency Provider Emergency Medicine; PCP Internal Medicine; Visit Provider Nurse Practitioner Psychiatric/Mental Health | DX: F11.21 Opioid dependence, in remission (principal) | CPT/HCPCS: 99222 ==

== ENCOUNTER 2025-08-17 06:31 | Outpatient (REF) | payer MEDICARE, MEDICAID, SELFPAY ==
--- NOTE | ~2025-08-17 | XR_ITS ---
EXAMINATION: XR FEMUR, RIGHT CLINICAL INFORMATION: S72.90XA - Unspecified fracture of unspecified femur, initial encounter ... COMPARISON: 08/01/2025 TECHNIQUE: AP and lateral views of the right femur were obtained. FINDINGS: Intertrochanteric fracture with fragmentation of greater and lesser trochanter is again seen. There are skin troy and subcutaneous soft tissue edema laterally. Since prior x-ray, a short intramedullary nail with distal interlocking screw has been placed. There is a lag screw traversing the femoral head and neck. Previous varus deformity has been reduced. XR/XR femur RT 2V IMPRESSION: ORIF of right intertrochanteric fracture. Electronically signed by: Favio Caceres MD 08/17/2025 10:08 AM [facility]
--- OUTSIDE RECORDS SUMMARY | 2025-08-17 06:34 | XMS_ITS | Clinical Summary ---
Author Organization [facility] ity Address [address] [place] [address] Care Team Providers Care Pocket Closer Name Role Phone Unavailable Primary Care Provider [...]
== END 2025-08-17 06:32 | disposition home or self-care (01) ==
LOC: HO.HOSX 06:31
PROVIDERS: Visit Provider Physician Assistant
DX: Z47.89 Encounter for other orthopedic aftercare (principal); S72.141D Displaced intertrochanteric fracture of right femur, subsequent encounter for closed fracture with routine healing; Z72.0 Tobacco use; Z71.6 Tobacco abuse counseling
CPT/HCPCS: 73552; 99212

== ENCOUNTER 2025-08-17 09:48 | Outpatient (AMB) | payer MEDICARE, MEDICAID, SELFPAY ==
--- NOTE | 2025-08-17 09:56 | A.OFFVIS_ITS ---
Intake Visit Reasons: 2wkPO-R hip IM nail, DOS 08/02/2025 with NE Intake Note: Lulu is a 59 year old female who presents today post operatively after undergoign a right hip IMN, performed by Dr. Jay on 08/02/2025. Today patient reports she is doing well, states having soreness in her hip. She is currently residing at [facility]. Allergies No Known Allergies Allergy (Mild, Verified 08/17/25 10:06) NOT APPLICABLE Medication List - Last Reconciled 08/17/25 by Ernestine Whittington PA-C acetaminophen 975 mg (3 x 325 mg) PO Q6H 30 days alprazolam 0.5 mg PO DAILY 14 days ascorbic acid (vitamin C) 250 mg PO DAILY 30 days aspirin 81 mg PO DAILY atorvastatin 20 mg PO DAILY citalopram 20 mg PO DAILY 90 days enoxaparin (Lovenox) 30 mg subcut Q12H ferrous sulfate 324 mg PO BIDWM 30 days levetiracetam (Keppra) 500 mg PO BID lidocaine 4% (Lidocaine Pain Relief) 2 patches See Protocol transdermal DAILY 30 days lisinopril 10 mg PO DAILY magnesium oxide 400 mg PO BIDPC 30 days methadone 175 mg PO DAILY mirtazapine (Remeron) 15 mg PO BEDTIME oxycodone 10 mg (2 x 5 mg) PO Q4H PRN 7 days ropinirole 3 mg PO BEDTIME HPI Comments Details: History of Present Illness The patient is a 59 year old female presenting for a postoperative follow-up visit s/p Right hip IMN 08/02/[address] Jay. The patient reports her hip is still a little sore and is undergoing rehabilitation. Prior to her injury, the patient did not use a cane or any other assistive device for ambulation. She currently uses a caitlin walker, which was initiated at the hospital due to an issue with her right arm. The patient is a current smoker. Social History - Tobacco Use: The patient is a current smoker and was counseled on smoking cessation for improved wound and bone healing. - Functional Status: The patient did not use any assistive devices for walking before her injury. - She is currently using a one-handed walker and is in physical therapy. - Living Situation: The patient lives alone and her bathroom is on the second floor, which will require her to navigate stairs upon returning home. [facility] Medical History Fall Hx of ectopic Elevated cholesterol Lab test negative for COVID-19 virus Drug abuse Seizure CVA (cerebral vascular accident) Positive colorectal cancer screening using Cologuard test Benign essential HTN Endogenous depression Surgical History H/O colonoscopy (~10/13/20) Hx of unilateral oophorectomy History of back surgery Family History Father Alive and well Mother Alive and well Social History Household Members: None Housing: Apartment Do you presently have visiting nurse or other home services: No Alcohol intake: never Comment: seizure precations Patient Tobacco Use Status: Current everyday Tobacco user Tobacco use type: Cigarette Cigarette Packs Per Day: 1 Cigarettes Per Day: 6 Years Smoked: 30 e-Cigarette/Vaping Use: Never Used Second Hand Smoke Exposure: Yes Substance Use Type: Former Substance User service: No Current occupational status: disabled Cognitive needs: No Hearing needs: No Vision needs: No Review of Systems Narrative Review of Systems - Musculoskeletal: Reports the hip is a little sore. Physical Exam Exam Exam: Physical Exam - Skin: Right hip incision clean , dry and intact No surrounding erythema or drainage. Calf supple non tender, NVI. Results Reviewed Results Reviewed: Xrays were obtained in the office today and personally reviewed by me of the right femur show stable fx pattern with intact IMN Assessment & Plan Assessment & Plan (1) Closed intertrochanteric fracture of right femur: Code(s): S72.141A - Displaced intertrochanteric fracture of right femur, initial encounter for closed fracture Category: Medical (2) Tobacco abuse: Code(s): Z72.0 - Tobacco use Category: Medical Plan Plan 1. Hip Fracture, Postoperative Follow-Up The patient is status post Rt hip IMN August 02. She was educated bone healing typically takes 6-12 weeks. Surgical troy will be removed today, and she may shower and get the leg wet afterwards. She will continue to work with physical therapy to improve strength and mobility, including learning to use stairs, with the goal of being able to go home. The patient was informed that she might need to use a cane in the future. Follow-up is scheduled in 6-8 weeks to check X-rays and assess healing. 2. Tobacco Use The patient is a smoker. She was advised that smoking can interfere with bone and wound healing and was counseled on smoking cessation. Consent Patient was informed and verbally consented to the use of an ambient scribe for clinic note documentation during this visit. Orders: Orders XR femur RT 2V Today S72.90XA - Unspecified fracture of unspecified femur, initial encounter for closed fracture Coding Level of Care Code Global (10780) Diagnoses Closed intertrochanteric fracture of right femur S72.141A Tobacco abuse Z72.0
== END 2025-08-17 10:35 | disposition home or self-care (01) ==
LOC: HO.HOS 09:49
PROVIDERS: PCP Internal Medicine; Visit Provider Physician Assistant
DX: S72.141A Displaced intertrochanteric fracture of right femur, initial encounter for closed fracture (principal); Z72.0 Tobacco use
CPT/HCPCS: 99024

== ENCOUNTER → 2025-08-17 09:50 | Outpatient (BNV) | payer MEDICARE, MEDICAID, SELFPAY | PROVIDERS: Visit Provider Radiology Diagnostic Radiology | DX: S72.141A Displaced intertrochanteric fracture of right femur, initial encounter for closed fracture (principal) | CPT/HCPCS: 73552 ==